=== PATIENT | female | born 1935 | race Caucasian/White ===

== ENCOUNTER 2018-05-14 20:26 | Outpatient (REF) | payer MEDICARE, SELFPAY ==
[2018-05-14 21:07] LABS: Anion Gap 9.7 mmol/L (3-11); BUN 16 mg/dL (7-18); CO2 29.3 mmol/L (21.0-32.0); CREATININE 1.05 mg/dL (0.55-1.02); Calcium 9.7 mg/dL (8.5-10.1); Chloride 104 mmol/L (98-107); Estimated GFR 50.43 (mL/min/1.73m2); Glucose 99 mg/dL (70-100); Potassium 4.6 mmol/L (3.5-5.1); Sodium 143 mmol/L (136-145)
== END 2018-05-14 20:46 ==
LOC: NCHCN 20:26
PROVIDERS: PCP Specialist/Technologist Athletic Trainer; Visit Provider Specialist/Technologist Athletic Trainer
DX: I10 Essential (primary) hypertension (principal)
CPT/HCPCS: 80048

== ENCOUNTER 2019-01-27 10:34 | Outpatient (REF) | payer MEDICARE, SELFPAY ==
[2019-01-27 12:18] LABS: Anion Gap 11.3 mmol/L (3-11); BUN 18 mg/dL (7-18); CO2 25.7 mmol/L (21.0-32.0); Calcium 9.7 mg/dL (8.5-10.1); Chloride 106 mmol/L (98-107); Estimated GFR 47.67 (mL/min/1.73m2); Glucose 110 mg/dL (70-100); Potassium 4.6 mmol/L (3.5-5.1); Sodium 143 mmol/L (136-145)
== END 2019-01-27 10:54 ==
LOC: NCHCN 10:34
PROVIDERS: PCP Nurse Practitioner Family; Visit Provider Nurse Practitioner Family
DX: I10 Essential (primary) hypertension (principal); E78.5 Hyperlipidemia, unspecified; R94.4 Abnormal results of kidney function studies; H35.30 Unspecified macular degeneration
CPT/HCPCS: 80048

== ENCOUNTER 2020-01-12 14:45 | Outpatient (REF) | payer MEDICARE, SELFPAY ==
[2020-01-12 19:54] LABS: BUN 21 mg/dL (7-18); CREATININE 1.29 mg/dL (0.55-1.02); Calcium 9.4 mg/dL (8.5-10.1); Chloride 105 mmol/L (98-107); Estimated GFR 39.57 (mL/min/1.73m2); Glucose 135 mg/dL (74-106); Potassium 4.1 mmol/L (3.5-5.1); Sodium 141 mmol/L (136-145)
== END 2020-01-12 15:05 ==
LOC: NCHCN 14:45
PROVIDERS: Visit Provider Nurse Practitioner Family
DX: I10 Essential (primary) hypertension (principal)
CPT/HCPCS: 80048

== ENCOUNTER 2020-03-24 09:27 | Outpatient (REF) | payer MEDICARE, SELFPAY ==
[2020-03-24 19:18] LABS: Anion Gap 8.7 mmol/L (3-11); BUN 15 mg/dL (7-18); CO2 29.3 mmol/L (21.0-32.0); CREATININE 1.06 mg/dL (0.55-1.02); Calcium 9.6 mg/dL (8.5-10.1); Chloride 104 mmol/L (98-107); Estimated GFR 49.63 (mL/min/1.73m2); Glucose 89 mg/dL (74-106); Potassium 4.2 mmol/L (3.5-5.1); Sodium 142 mmol/L (136-145)
== END 2020-03-24 09:47 ==
LOC: NCHCN 09:27
PROVIDERS: PCP Nurse Practitioner Family; Visit Provider Nurse Practitioner Family
DX: N18.3 Chronic kidney disease, stage 3 (moderate) (principal)
CPT/HCPCS: 80048

== ENCOUNTER 2021-02-13 16:06 | Outpatient (REF) | payer MEDICARE, SELFPAY ==
[2021-02-13 20:42] LABS: Anion Gap 6.1 mmol/L (3-11); BUN 18 mg/dL (7-18); CO2 29.9 mmol/L (21.0-32.0); CREATININE 1.1 mg/dL (0.55-1.02); Calcium 9.8 mg/dL (8.5-10.1); Chloride 105 mmol/L (98-107); Estimated GFR 47.43 (mL/min/1.73m2); Glucose 98 mg/dL (74-106); Potassium 4.5 mmol/L (3.5-5.1); Sodium 141 mmol/L (136-145)
== END 2021-02-13 16:07 | disposition home or self-care (01) ==
LOC: NCHCN 16:06
PROVIDERS: PCP Nurse Practitioner Family; Visit Provider Nurse Practitioner Family
DX: N18.30 Chronic kidney disease, stage 3 unspecified (principal)
CPT/HCPCS: 80048

== ENCOUNTER 2021-02-14 02:10 | Outpatient (CLI) | payer MEDICARE, SELFPAY ==
--- NOTE | 2021-02-14 11:19 | DI.RAD_ITS ---
Exam(s) XR HIP RT COMPLETE AP PELVIS EXAM: XR HIP RT COMPLETE AP PELVIS CLINICAL HISTORY: RT GROIN AND HIP PAIN, M25.551, H/O FALL,DECREASED RANGE OF MOTION RT HIP,. TECHNIQUE: 2D digital imaging was performed. COMPARISON: No exams were available for comparison FINDINGS: No evidence of pelvic fracture nor diastasis of the symphysis pubis. Sacroiliac joints appear unrema rkable. There no hip fractures. There are mild degenerative changes in the right hip noted. Left h ip unremarkable. No osseous lesions evident. IMPRESSION: There are mild degenerative changes in the right hip. No other significant radiograph findings in th e pelvis and hips. DATA REPOSITORY: RADIATION DOSE DELIVERED:
== END 2021-02-14 02:30 ==
PROVIDERS: PCP Nurse Practitioner Family; Visit Provider Nurse Practitioner Family
DX: M16.11 Unilateral primary osteoarthritis, right hip (principal); R10.31 Right lower quadrant pain; N18.30 Chronic kidney disease, stage 3 unspecified; W19.XXXA Unspecified fall, initial encounter
CPT/HCPCS: 73502

== ENCOUNTER 2021-04-04 11:45 | Outpatient (REF) | payer MEDICARE, SELFPAY ==
[2021-04-04 16:40] LABS: Anion Gap 11.7 mmol/L (3-11); BUN 18 mg/dL (7-18); CO2 24.3 mmol/L (21.0-32.0); CREATININE 1.1 mg/dL (0.55-1.02); Calcium 9.8 mg/dL (8.5-10.1); Chloride 106 mmol/L (98-107); Estimated GFR 47.43 (mL/min/1.73m2); Glucose 101 mg/dL (74-106); Potassium 4.4 mmol/L (3.5-5.1); Sodium 142 mmol/L (136-145)
== END 2021-04-04 11:46 | disposition home or self-care (01) ==
LOC: NCHCN 11:45
PROVIDERS: PCP Nurse Practitioner Family; Referring Provider Nurse Practitioner Family; Visit Provider Nurse Practitioner Family
DX: I10 Essential (primary) hypertension (principal)
CPT/HCPCS: 80048

== ENCOUNTER 2021-04-11 13:22 | Outpatient (REF) | payer MEDICARE, SELFPAY ==
[2021-04-11 21:27] LABS: Anion Gap 10.2 mmol/L (3-11); BUN 22 mg/dL (7-18); CO2 24.8 mmol/L (21.0-32.0); CREATININE 1.1 mg/dL (0.55-1.02); Calcium 9.7 mg/dL (8.5-10.1); Chloride 106 mmol/L (98-107); Estimated GFR 47.43 (mL/min/1.73m2); Glucose 100 mg/dL (74-106); Potassium 4.7 mmol/L (3.5-5.1); Sodium 141 mmol/L (136-145)
== END 2021-04-11 13:23 | disposition home or self-care (01) ==
LOC: NCHCN 13:22
PROVIDERS: PCP Nurse Practitioner Family; Visit Provider Nurse Practitioner Family
DX: I10 Essential (primary) hypertension (principal)
CPT/HCPCS: 80048

== ENCOUNTER → 2021-09-28 00:55 | Outpatient (CLI) | payer MEDICARE, SELFPAY ==
--- NOTE | 2021-09-28 | DI.RAD_ITS ---
Exam(s) XR HIP PELVIS ADULT BL EXAM: XR HIP PELVIS ADULT BL CLINICAL HISTORY: LOW BACK AND HIP PAIN. TECHNIQUE: 2D digital imaging was performed of the pelvis and bilateral hips. Three images were obt ained. AP pelvis and lateral views of both hips were obtained. COMPARISON: CR XR HIP RT COMPLETE AP PELVIS from 02/14/2021 FINDINGS: BONES: No acute fracture is present. No bony destructive lesion is seen. JOINTS: No dislocation present. In the right hip, poye-wu-alkzdzjm joint space narrowing is present. In the left hip jdip-nm-qznnedhu joint space narrowing is present. SOFT TISSUE: Normal. IMPRESSION: Mild degenerative changes of the hips bilaterally. DATA REPOSITORY: RADIATION DOSE DELIVERED:
--- NOTE | 2021-09-28 | DI.RAD_ITS ---
Exam(s) XR LUMBAR SPINE COMPLETE EXAM: XR LUMBAR SPINE COMPLETE CLINICAL HISTORY: LOW BACK PAIN,M54.50. TECHNIQUE: 2D digital imaging was performed of the lumbar spine. Five images were obtained. AP, la teral, right oblique, left oblique and L5-S1 spot views were obtained. COMPARISON: No exams were available for comparison FINDINGS: BONES: No fracture or destructive lesion. There are endplate osteophytes at multiple levels of the [place] mbar spine, particularly at L5-S1. Facet hypertrophic changes are seen throughout the lumbar spine pa rticularly at L4-5 and L5-S1. DISKS: There is disc space narrowing at L5-S1. ALIGNMENT: Lumbar spinal alignment is within normal limits. No spondylolysis or spondylolisthesis. SOFT TISSUE: Atherosclerosis is present. IMPRESSION: Moderate degenerative changes in the lumbar spine. DATA REPOSITORY: RADIATION DOSE DELIVERED:
--- NOTE | 2021-09-28 | DI.RAD_ITS ---
Exam(s) XR SACROILIAC JOINTS EXAM: XR SACROILIAC JOINTS CLINICAL HISTORY: LOW BACK AND HIP PAIN. TECHNIQUE: 2D digital imaging was performed. Three images were obtained. COMPARISON: No exams were available for comparison FINDINGS: Bones: No fracture is present. No bony destructive lesion is seen. Alignment is satisfactory. SI Joint:No fusion, erosions or sclerosis is seen. Soft Tissue: Normal. IMPRESSION: Unremarkable SI joints. DATA REPOSITORY: RADIATION DOSE DELIVERED:
== END ==
PROVIDERS: PCP Nurse Practitioner Family; Visit Provider Nurse Practitioner Family
DX: M54.59 Other low back pain (principal); R10.2 Pelvic and perineal pain; M51.36 Other intervertebral disc degeneration, lumbar region; M16.0 Bilateral primary osteoarthritis of hip
CPT/HCPCS: 73521; 72110; 72202

== ENCOUNTER 2021-10-09 20:34 | Outpatient (REF) | payer MEDICARE, SELFPAY ==
[2021-10-09 19:36] LABS: ALT 31 U/L (14-59); AST 24 U/L (15-37); Albumin 4.2 g/dL (3.4-5.0); Alkaline Phosphatase 101 U/L (46-116); Anion Gap 9.2 mmol/L (3-11); BUN 23 mg/dL (7-18); Bilirubin, Total 0.7 mg/dL (0.2-1.0); CO2 26.8 mmol/L (21.0-32.0); Calcium 10.1 mg/dL (8.5-10.1); Chloride 107 mmol/L (98-107); Estimated GFR 52.82 (mL/min/1.73m2); Glucose 93 mg/dL (74-106); Potassium 4.9 mmol/L (3.5-5.1); Sodium 143 mmol/L (136-145); Total Protein 7.3 g/dL (6.4-8.2)
== END 2021-10-09 20:35 | disposition home or self-care (01) ==
LOC: NCHCN 20:34
PROVIDERS: PCP Nurse Practitioner Family; Visit Provider Nurse Practitioner Family
DX: I10 Essential (primary) hypertension (principal); E78.5 Hyperlipidemia, unspecified; M54.59 Other low back pain
CPT/HCPCS: 80053

== ENCOUNTER → 2021-12-03 13:56 | Outpatient (BNVA) | payer MEDICARE, SELFPAY | PROVIDERS: PCP Nurse Practitioner Family; Referring Provider Nurse Practitioner Family; Visit Provider Student in an Organized Health Care Education/Training Program | DX: M16.11 Unilateral primary osteoarthritis, right hip (principal); M16.12 Unilateral primary osteoarthritis, left hip | CPT/HCPCS: 99203 ==

== ENCOUNTER → 2021-12-13 02:02 | Outpatient (CLI) | payer MEDICARE, SELFPAY ==
--- NOTE | 2021-12-13 07:45 | DI.RAD_ITS ---
Exam(s) RF JOINT INJECTION FLUORO GUID EXAM: RF JOINT INJECTION FLUORO GUID CLINICAL HISTORY: R HIP INJ UNDER FLUORO,PAIN,DJD,M16.11 TECHNIQUE: 2D and realtime digital imaging was performed. CONTRAST MATERIAL: Water soluble contrast was administered. COMPARISON: No exams were available for comparison FINDINGS: Fluoroscopy was provided for Dr. Wood during the performance of a right hip injection. Please r efer to the procedure report for complete details. RADIATION DOSE DELIVERED: shadia Craft=0.57 mGy
--- NOTE | 2021-12-13 07:45 | DI.RAD_ITS ---
Exam(s) RF JOINT INJECTION FLUORO GUID EXAM: RF JOINT INJECTION FLUORO GUID CLINICAL HISTORY: L HIP INJ UNDER FLUORO,PAIN,DJD LT HIP, M16.12 TECHNIQUE: 2D and realtime digital imaging was performed. CONTRAST MATERIAL: Water soluble contrast was administered. COMPARISON: No exams were available for comparison FINDINGS: Fluoroscopy was provided for Dr. Wood during the performance of a left hip injection. Please re arelis to the procedure report for complete details. RADIATION DOSE DELIVERED: shadia Craft=0.53 mGy
[2021-12-13] MEDS: Omnipaque 300 MG/ML 10 ML BTL IJ ×2 (15:37→15:42)
[2021-12-13] MEDS: Bupivacaine 0.5% Pres-Free 30 ML VIAL 5 ML IJ (15:39)
[2021-12-13] MEDS: methylPREDNISolone ACETATE 80 MG/ML VIAL IM (15:40)
--- NOTE | 2021-12-13 20:00 | W.PROCNOTE ---
Date of service: 12/13/21 Time of Service: 15:05 Procedure Note Date of procedure: 12/13/21 Procedure: Bilateral Hip Injection with Fluoroscopic Guidance Surgeon/Proceduralist/Physician: Jonah Wood Procedure Diagnosis: Bilateral Hip Osteoarthritis Procedure Indications: Lorraine has had persistent pain of the BILATERAL hip and groin. Noninvasive measures have been tried. To serve as both diagnostic and therapeutic, an injection under fluoroscopy was recommended. I had discussed the risks of the procedure and the patient elected to proceed. Procedure Description: Lorraine was greeted in the flouroscopy room. The consent was reviewed with the patient and signed. The patient was then placed in the supine position on the fluoroscopy table. The RIGHT hip was then prepped with Chloraprep. The anterolateral injection starting point was identiifed by bony landmarks and fluoroscopy. The skin and soft tissue in the tract of the injection was anesthetized with 1% Lidocaine. A spinal needle was then inserted deep into the hip joint at the level of the lateral femoral neck under fluoroscopic guidance. A small amount of Omnipaque solution was injected to confirm intraarticular placement. Once confirmed, the hip was injected with 5cc of 0.5% Bupivicaine and 80mg of Depo-Medrol. A bandaid was placed on the injection site. The LEFT hip was then prepped with Chloraprep. The anterolateral injection starting point was identiifed by bony landmarks and fluoroscopy. The skin and soft tissue in the tract of the injection was anesthetized with 1% Lidocaine. A spinal needle was then inserted deep into the hip joint at the level of the lateral femoral neck under fluoroscopic guidance. A small amount of Omnipaque solution was injected to confirm intraarticular placement. Once confirmed, the hip was injected with 5cc of 0.5% Bupivicaine and 80mg of Depo-Medrol. A bandaid was placed on the injection site. The patient tolerated the procedure well.
== END ==
PROVIDERS: PCP Nurse Practitioner Family; Visit Provider Student in an Organized Health Care Education/Training Program
DX: M16.12 Unilateral primary osteoarthritis, left hip (principal); M16.11 Unilateral primary osteoarthritis, right hip
CPT/HCPCS: 20610; 77002; J1040

== ENCOUNTER 2022-01-29 10:45 | Outpatient (REF) | payer MEDICARE, SELFPAY ==
[2022-01-29 15:54] LABS: Anion Gap 8.4 mmol/L (3-11); BUN 22 mg/dL (7-18); CO2 25.6 mmol/L (21.0-32.0); CREATININE 0.9 mg/dL (0.55-1.02); Calcium 9.5 mg/dL (8.5-10.1); Chloride 105 mmol/L (98-107); Estimated GFR 59.65 (mL/min/1.73m2); Glucose 89 mg/dL (74-106); Potassium 4.1 mmol/L (3.5-5.1); Sodium 139 mmol/L (136-145)
== END 2022-01-29 10:46 | disposition home or self-care (01) ==
LOC: NCHCN 10:45
PROVIDERS: PCP Nurse Practitioner Family; Visit Provider Nurse Practitioner Family
DX: I10 Essential (primary) hypertension (principal); N18.30 Chronic kidney disease, stage 3 unspecified; M54.59 Other low back pain; M25.551 Pain in right hip
CPT/HCPCS: 80048

== ENCOUNTER → 2022-02-18 10:45 | Outpatient (BNVA) | payer MEDICARE, SELFPAY | PROVIDERS: PCP Nurse Practitioner Family; Referring Provider Nurse Practitioner Family; Visit Provider Student in an Organized Health Care Education/Training Program | DX: M16.11 Unilateral primary osteoarthritis, right hip (principal); M16.12 Unilateral primary osteoarthritis, left hip | CPT/HCPCS: 99213 ==

== ENCOUNTER 2022-03-18 03:32 | Outpatient (CLI) | payer OTHER, SELFPAY ==
[2022-03-18 10:46] LABS: HGB 13.9 g/dL (11.2-15.7); MCH 28.7 pg (27.0-33.0); MCHC 31.6 % (32.0-36.0); MCV 91 fL (80-95); MPV 9.9 fL (8.0-11.0); Platelet Count 263 10^3/uL (130-400); RBC 4.85 10^6/uL (3.93-5.22); RDW 14.2 % (11.7-14.6); RDW-SD 47.7 fL; WBC 8.12 10^3/uL (4.4-10.8)
== END 2022-03-18 03:33 | disposition home or self-care (01) ==
PROVIDERS: PCP Nurse Practitioner Family; Visit Provider Student in an Organized Health Care Education/Training Program
DX: M16.0 Bilateral primary osteoarthritis of hip (principal); Z01.818 Encounter for other preprocedural examination
CPT/HCPCS: 36415; 85027; 86850; 86900; 86901

== ENCOUNTER 2022-03-18 03:54 | Outpatient (CLI) | payer OTHER, SELFPAY ==
[2022-03-18 12:49] LABS: Source Nasal/Nares
[2022-03-18 15:25] LABS: COVID-19 PCR Negative (Negative)
== END 2022-03-18 03:55 | disposition home or self-care (01) ==
LOC: LBO 03:54
PROVIDERS: PCP Nurse Practitioner Family; Visit Provider Student in an Organized Health Care Education/Training Program
DX: Z20.822 Contact with and (suspected) exposure to COVID-19 (principal)
CPT/HCPCS: 87635

== ENCOUNTER 2022-03-19 05:41 | Observation (INO) | payer OTHER, SELFPAY ==
[2022-03-19] VITALS (16 sets, daily range): BP systolic 85–170; BP diastolic 36–89; PULSE 62–87; RESP 15–20; TEMP 35.5–36.7; O2SAT 92–98; BMI 33.2
--- NOTE | 2022-03-19 06:09 | W.ANESPRE ---
General Info Date of Service Date Performed: 03/19/22 Height: 5 ft Weight: 77.111 kg Body Mass Index (BMI): 33.2 Surgical Procedure: Operation Date: 03/19/22 08:00 Proposed Procedure Side Surgeon p Hip Total Hip Anterior Bilateral Bilateral Jonah Wood MD Meds Allergies and Home Medications Allergies Allergy/AdvReac Type Severity Reaction Status Date / Time simvastatin Allergy Unknown Verified 03/19/22 06:03 adhesive tape AdvReac Severe Verified 03/19/22 06:03 environmental Allergy Skin Rash Uncoded 03/18/22 12:10 Home Medication Medication Instructions Recorded lisinopril 30 mg tablet 60 mg PO DAILY 10/16/21 vitamins A,C,B-fuqe-ttyybm 14,320 1 cap PO BID 10/16/21 unit-226 mg-200 unit capsule (ICaps AREDS) acetaminophen 650 mg 650 mg PO Q12H 12/03/21 tablet,extended release (Tylenol Arthritis Pain) meloxicam 7.5 mg tablet 2 tab PO DAILY 01/31/22 amlodipine 2.5 mg tablet 1 tab PO DAILY 03/18/22 Current Visit Medications: Current Medications Generic Name Dose Route Start Last Admin Trade Name Freq PRN Reason Stop Dose Admin Acetaminophen 1,000 mg 03/19/22 06:00 Acetaminophen 500 Mg Tab PO 03/19/22 16:00 PREOP KRISTY Celecoxib 400 mg 03/19/22 06:00 Celecoxib 200 Mg Cap PO 03/19/22 16:00 PREOP KRISTY Tranexamic Acid 1,000 mg/ 60 mls @ 360 mls/hr 03/19/22 06:00 Sodium Chloride IV 03/19/22 16:00 PREOP KRISTY Tranexamic Acid 1,000 mg/ 60 mls @ 360 mls/hr 03/19/22 06:00 Sodium Chloride IV 03/19/22 16:00 DIRECTED KRISTY Ringer's Solution 1,000 mls @ 80 mls/hr 03/19/22 06:00 IV 03/19/22 23:59 INFUSION KRISTY Cefazolin Sodium/Dextrose 2 gm in 50 mls @ 100 mls/hr 03/19/22 06:00 Ancef Duplex IVPB 03/19/22 16:00 PREOP KRISTY IV Miscellaneous Supplies 1 each 03/19/22 06:00 Iv Access IV 03/19/22 23:59 DIRECTED KRISTY Sodium Chloride 0 ml 03/19/22 06:00 Normal Saline Flush 10 Ml Syr IV 03/19/22 23:59 PRN PRN Sodium Chloride 0 ml 03/19/22 06:00 Normal Saline 10 Ml Vial IJ 03/19/22 23:59 DIRECTED PRN Sterile Water 0 ml 03/19/22 06:00 Water,Injection,Sterile 10 Ml Vial IJ 03/19/22 23:59 DIRECTED PRN PFSH Active Problems Active Problems: Problem Status Onset Code Hypertension I10 Low back pain M54.50 CKD (chronic kidney disease) stage 3, GFR 30-59 ml/min N18.30 Hyperlipidemia E78.5 Macular degeneration of right eye H35.30 Cataracts, bilateral H26.9 Degenerative joint disease of left hip M16.12 Degenerative joint disease of right hip M16.11 Medical History Medical History Eczema Fecal occult blood test positive Former smoker Right hip pain Seasonal allergies Surgical History Surgical History Hx of cataract extraction Tobacco Smoking/Tobacco Use Status: Former Tobacco Use Alcohol Alcohol Intake: current Alcohol intake frequency: a few times a week Alcohol type: wine Substance Use Substance use: Never Substance use type: does not use Vital Signs and Lab Results Vital Signs Most Recent Vital Signs in EMR: Temp Pulse Resp BP Pulse Ox 36.6 C 75 16 163/89 H 98 03/19/22 06:05 03/19/22 06:05 03/19/22 06:05 03/19/22 06:05 03/19/22 06:05 Lab Results Blood Type / Crossmatch: Patient ABO/Rh A Positive 03/18/22 Antibody Screen NEGATIVE 03/18/22 Complete Blood Count: White Blood Count 8.12 10^3/uL (4.4-10.8) 03/18/22 10:35 Red Blood Count 4.85 10^6/uL (3.93-5.22) 03/18/22 10:35 Hemoglobin 13.9 g/dL (11.2-15.7) 03/18/22 10:35 Hematocrit 44.0 % (36.0-46.0) 03/18/22 10:35 Platelet Count 263 10^3/uL (130-400) 03/18/22 10:35 Complete Metabolic Panel: No Data to Display Liver Function Panel: No Data to Display Coagulation Panel: No Data to Display Cardiac Panel: No Data to Display Arterial Blood Gas: No Data to Display Venous Blood Gas: No Data to Display Pancreas Panel: No Data to Display Thyroid Panel: No Data to Display Infectious Disease: Coronavirus (COVID-19)(PCR) Negative (Negative) 03/18/22 10:55 Coronavirus 2019 Source Nasal/Nares 03/18/22 10:55 Blood Cultures: No Data to Display Toxicology Panel: No Data to Display Imaging and Studies Imaging and Studies Study information below may be from another EMR and interpreted by another provider. Please see original notes in EMR for more complete details. EKG Summary: 03/19/22: sinus Anesthesia Assessment and Plan Anesthesia History Personal History: No History of Anesthesia Complications Family History: No Family History of Anesthesia Complications Exercise Tolerance Exercise Tolerance: Metabolic Equivalents>4 Cardiac & Pulmonary Exam Cardiac Exam: Normal S1/S2 Heart Sounds Pulmonary Exam: Clear Bilateral Breath Sounds Implantable Cardiac Device Does patient have a Pacemaker or an ICD?: No Airway Exam Known Difficult Airway: No Mallampati Class: 1 Mouth Opening: Normal (> 3cm) Thyromental Distance: Greater than 3 cm Neck Range of Motion: Full ROM Neck Circumference: Normal Teeth Condition: Removable Dentures/Plates Upper, Removable Dentures/Plates Lower and Edentulous ASA Classification ASA Score: ASA 3 Emergency Case?: No NPO Status NPO Status: NPO Clears >2 hours, Solids >8 hours Anesthesia Plan Resuscitation Status: Full Code Anesthesia Technique: Spinal Anesthesia Airway Planned: Natural Airway Monitors Used: Standard Monitors Preoperative Comments:: 86 yo female for bilateral RUPAL. Sig PMHx: CKDIII, HTN (lisinopril), former smoker, occ EtOH.
--- NOTE | 2022-03-19 06:15 | RT.EKG_ITS ---
APPROVED REPORT Exam: Resting ECG Reason for Exam: preop Patient Location: I HR:63 bpm ECG Measurements Heart Rate 63 AXIS HI 142 P 50 QRSd 96 QRS 3 QT 405 T 33 QTc 413 Conclusion Sinus rhythm...normal P axis, V-rate 60- 99 Normal Electrocardiogram
--- NOTE | 2022-03-19 06:17 | PDOC.DSDIS_ITS ---
Discharge Plan Disposition Patient Disposition: HOME Condition: Stable Discharge Details Reason For Visit: Bilateral RUPAL's Admit Date/Time: 03/19/22 05:41 Admit Provider: Jonah Wood Attending Provider: Jonah Wood Primary Care Provider: Sharmila Lee Home Meds and New Rx's Prescriptions: No Action acetaminophen [Tylenol Arthritis Pain] 650 mg tablet extended release 650 mg PO Q12H meloxicam 7.5 mg tablet 2 tab PO DAILY ICaps AREDS [id number],320226-200 icyw-jt-yvwv capsule 1 cap PO BID lisinopril 30 mg tablet 60 mg PO DAILY amlodipine 2.5 mg tablet 1 tab PO DAILY Label Comments: TAKE ONE TABLET BY MOUTH EVERY MORNING FOR HIGH BLOOD PRESSURE Discharge Instructions Additional Instructions: Total Hip Discharge Instructions Activity: The most important activity is to walk. You should try to take short walks a few times a day. You have no restrictions on movement or positioning, but do not try to force what you do. You will find some stiffness and weakness with hip flexion (lifting your knee). Do not try to strengthen this too early, continue to practice walking and stairs and this will come. - Outpatient physical therapy can be helpful to help return you to a normal gait and improve your flexibility and strength. This can start around 2 weeks. For some patients, it?s not necessary. Usually this is determined at the time of discharge or at the first post-operative visit. - You should wear the JEM hose on both legs for 2 weeks. Dressing: Keep the surgical dressing in place for at least one week. After the first week it may be removed and replace with light gauze and tape or nothing. It may get wet after 3 days but avoid soaking the dressing. If it gets wet, just lightly pat dry. It is important to always keep some gauze between skin folds, especially when you are sitting. Spend some time with the wound exposed when you are lying flat as the incision does wrinkle onto itself. Medications: - You should take Tylenol and an anti-inflammatory Celebrex as your primary pain control medications. If the Celebrex is too expensive or not covered, please call the office for another alternative (Advil/Ibuprofen or Naproxen/Aleve). - You have been prescribed a stronger pain medication Oxycodone for breakthrough pain, take as needed as prescribed. - You have also been prescribed a stomach acid reduction agent Pantoprozole to help reduce stomach acid and reflux. - You will be taking Aspirin 81mg twice a day for DVT prevention unless instructed otherwise. - If you have constipation you should take Colace or Miralax (both zhbx-rkj-fekemal). It takes most people 3-4 days to have a bowel movement. Follow-up: 2 weeks If you have any acute concerns or questions, please do not hesitate to contact the office at [phone]. You may contact Dr. Wood with any questions after hours through the hospital at [phone] or on his cell phone at [phone]. Referrals: Jonah Wood MD [ [facility] STAFF PHYSICIAN] - Activity:: Activity as Tolerated Equipment/Supplies:: Walker Diet:: As Tolerated DS: Diagnosis Discharge Diagnosis (1) Degenerative joint disease of left hip: Status: Acute (2) Degenerative joint disease of right hip: Status: Acute
[2022-03-19] MEDS: Acetaminophen 500 MG TAB 1000 MG PO ×3 (06:34→20:31)
[2022-03-19] MEDS: Celecoxib 200 MG CAP 400 MG PO (06:34)
[2022-03-19] MEDS: Lactated Ringers 1,000 ML 80 ML IV ×2 (07:01→13:37)
[2022-03-19] MEDS: ceFAZolin 2 GM/50 ML BAG IVPB (07:53)
--- NOTE | 2022-03-19 08:44 | DI.RAD_ITS ---
Exam(s) XR HIP RT IN OR EXAM: XR HIP RT IN OR CLINICAL HISTORY: RTHA TECHNIQUE: 2D and realtime digital imaging was performed. COMPARISON: No exams were available for comparison FINDINGS: C-arm fluoroscopy was utilized by Dr. Wood during placement of right hip prosthesis. Hard copies show femoral and acetabular components in good position. IMPRESSION: RADIATION DOSE DELIVERED: shadia Craft=2.45 mGy
--- NOTE | 2022-03-19 09:48 | DI.RAD_ITS ---
Exam(s) XR HIP LT IN OR EXAM: XR HIP LT IN OR CLINICAL HISTORY: L RUPAL TECHNIQUE: 2D and realtime digital imaging was performed. COMPARISON: No exams were available for comparison FINDINGS: C-arm fluoroscopy was utilized by Dr. Wood during placement of left hip prosthesis. Hard copy sh ows femoral and acetabular components in good position. IMPRESSION: RADIATION DOSE DELIVERED: shadia Craft=3.14 mGy
--- NOTE | 2022-03-19 10:27 | W.ANESPOSTOP ---
Postoperative Evaluation Date, Time and Location Date Performed: 03/19/22 Time Performed: 10:27 Patient Location: PACU Vital Signs Most Recent Imported Vital Signs: Most Recent Vital Signs Temp Pulse Resp BP Pulse Ox 36.6 C 75 16 163/89 H 98 03/19/22 06:05 03/19/22 06:05 03/19/22 06:05 03/19/22 06:05 03/19/22 06:05 Pain Score Most Recent Pain Score: Most Recent Pain Score Pain Level 9 03/19/22 06:05 Assessment Mental Status: Awake (Alert & Oriented to Patient Baseline) Airway and Respiratory Function: Patent airway with normal (patient baseline) respiratory exam Cardiovascular Function: Hemodynamically Stable Hydration Status: Adequately Hydrated Nausea & Vomiting: No Nausea or Vomiting Pain: Pain is tolerable per patient Peripheral Nerve Block: Patient did not receive a nerve block
--- NOTE | 2022-03-19 11:47 | ROE_ITS ---
Date of service: 03/19/22 Time of Service: 10:30 Operative Note Operative Note DATE OF PROCEDURE: 03/19/22 PRE-OP DIAGNOSIS: Bilateral Hip Osteoarthritis POST-OP DIAGNOSIS: same PROCEDURE: Bilateral Anterior Total Hip Arthroplasty with Intraoperative Navigation SURGEON: Jonah Wood [employer] OFFICER: Hannah Graham ANESTHESIA TYPE: Spinal Refer to Anesthesia Record ESTIMATED BLOOD LOSS: 200 PATHOLOGY: none sent COMPLICATIONS: None Patient was transported to: PACU Patient's condition: stable Implants: RIGHT: 1. Depuy [place] Acetabular Component, 48mm 2. Depuy Acetabular Liner, [id number] 3. Depuy Corail 125 Degree Standard Collared Femoral Stem, Size 9 4. Depuy Altrx Ceramic Femoral Head, Size 32+5mm LEFT: 1. Depuy [place] Acetabular Component, 48mm 2. Depuy Acetabular Liner, [id number] 3. Depuy Corail Standard Collared Femoral Stem, Size 9 4. Depuy Altrx Ceramic Femoral Head, Size 32+1mm Indications: I have seen Lorraine in clinic for symptoms of hip arthritis, confirmed with radiographic findings. She has exhausted nonoperative methods and was having significant limitations in daily function and desired better function and less pain. I discussed the technical details of a hip replacement. I explained the risks of the procedure to include, but not limited to, bleeding, infection, pain, stiffness, fracture, damage to nerves and vessels, damage to muscles and tendons, loosening, instability, leg length inequality, need for repeat procedure, blood clot and cardiopulmonary demise. Despite these risks, Lorraine elected to proceed. Findings: There was significant signs of arthritis throughout both hips with complete loss of cartilage of the femoral head. Procedure Description: Lorraine was greeted in the preoperative holding area where the correct side was identified and marked. The consent was reviewed with the patient and signed. The history and physical was updated. All questions were answered. She was taken back to the operating room. A spinal anesthestic was then administered. The patient was placed into the supine position on the HANA table. Both feet were wrapped with [place]brill cotton wrap along with Coban. RIGHT Side The feet were placed in specialized boots for the HANA table, well seated within the boot and secured. SCDs were applied. The patient was then slid down onto a peroneal post. A preoperative AP hip was obtained to serve as a reference for determining leg lengths. Prophylactic antibiotics in the form of Cefazolin were administered. 1g of Tranxemic Acid was given intravenously within 30 minutes of incision. The right leg was then prepped with Chloraprep and draped in a standard fashion. A second prep with Chloraprep was performed prior to placement of a shower-curtain type drape with Iodine impregnated skin protection. A timeout to confirm correct identity, side and site, procedure, allergies, anesthesia, and medical concerns was performed. An obliquely oriented incision was made starting lateral to the ASIS and running distal over the Tensor Fascia Sirisha (TFL) muscle belly toward the fibular head, approximately 10cm. The skin and soft tissue was dissected sharply, through Ana?s fascia, and to the fascia of the TFL. With the fascia and superior border of the IT band identified, the fascia was incised with a new knife just above any perforators from the IT band. The TFL muscle belly was bluntly dissected away from the fascia and moved laterally. The fat between TFL and rectus was identified to ensure the dissection was not within the TFL. Blunt dissection created space between abductors and the capsule and retractor was placed over the lateral femoral neck. The fibers of the rectus femoris tendon were identified and these were freed from the anterior capsule. A second cobra retractor was placed around the medial femoral neck. The TFL was further retracted laterally to show the deep fascia. Careful dissection through this layer identified three main crossing vessels of the lateral femoral circumflex. These were cauterized in multiple locations and then cut without any noticeable bleeding. The TFL was further released bluntly from the deep fascia to expose anterior hip capsule and fat The Octavio orthopaedic retractor was then placed beneath the TFL and against sartorius and medial soft tissues to protect and retract the soft tissues. A T-capsulotomy was then performed starting at the superior lateral acetabulum and moving distally to the intertrochanteric ridge. These capsular flaps were tagged with a No. 1 Ethibond and elevated from within. The capsular flaps were released to the shoulder of the lateral neck and to the lesser trochanter to give excellent visualization of the proximal femur. A neck osteotomy was performed using an oscillating saw based on preoperative templates. This cut started in the shoulder and of the lateral neck and exited medially. The saw was at all times directed medially to avoid injury to the greater trochanter. Gentle traction was applied to the leg and the osteotomy opened. The femoral head was removed with a corkscrew, making sure to protect the TFL on its exit. This was measured on the back table to determing the starting reamer size. Portions of the rectus obscuring visualization were minimally elevated off the superior acetabulum. An anterior retractor was placed over the anterior wall between capsule and labrum and attached to the Gripper retraction system. A posterior retractor was placed similarly. This provided excellent visualization. The contents of the cotyloid fossa were removed with electrocautery and the labrum was removed with a knife. There was a notable floor osteophyte. There was significant chondromalacia of the superior acetabulum. Acetabular reaming began with a 44mm reamer. This first reaming was directed anterior to posterior and medial to get down to the true floor. This was i nspected and reamed until the true floor was reached. The anterior retractor was then released and entry and exit was provided by traction on the capsular flaps. I then reamed sequentially up to a 48mm reamer where good fit was obtained. The larger reamers were oriented based on anatomical reference of the anterior and lateral michele to ensure proper abduction and anteversion. Positioning and size was confirmed with the fluoroscopy. A 48mm Depuy [place] acetabular component was selected. The acetabulum was reamed around the periphery with the selected acetabular size to prevent a rim fit. The deep tissues were irrigated. The acetabular component was then impacted in a position of about 40-45 degrees of abduction and 15-20 degrees of anteversion, using the patient?s anatomy as the ultimate landmark. Fluoroscopy was used to confirm this. There was excellent credit cashier of the acetabular component and the inserting handle was removed. The acetabular liner, Depuy [id number] polyethylene liner, was inserted and lined up with the tines of the acetabular component. There was no soft tissue interposition. The liner was then impacted into position and confirmed to be well-seated. A portion of the karen-articular cocktail was then injected around the acetabulum into the capsule and periosteum. This cocktail consisted of 50cc of 0.25% Bupivicaine and 20cc of Exparel, expanded to a total of 120cc. Traction was released from the femur. The leg was rotated to 120 degrees. Any remaining medial capsule was released until the lesser trochanter was easily palpable. A Perales retractor was placed medially. The lateral capsule was further released into the shoulder to allow access to the greater trochanter. A Perales retractor was placed over the greater trochanter which allowed the trochanter to flip in front of the capsule for excellent exposure. The leg was brought down into maximal extension and 20 degrees of adduction while ensuring there was no impingement on the acetabulum. Any remnant capsule within the trochanter was released. Piriformis and obturator externis were identified and protected. There was excellent access to the proximal femur. The lateral neck remnant was removed with a rongeur. A blunt canal probe was used to identify the canal and trajectory for later broaching. A box osteotome initiated the broach course. A small curved rasp and a curved curette were used to work laterally. Broaching then began with a size 8 Corail broach. This was inserted manually around the trochanter and into the canal before mallet blows. The broach was seated to a few millimeters below the cut level based on the neck cut and the preoperative template. Sequential broaching was continued until a tight fit was obtained with good rotational control of the femur. A trial standard 125 degree neck was inserted along with a +5 trial head. The leg was brought out of extension and adduction and then reduced with traction and internal rotation. The leg was stable anteriorly in a position of 30 degrees of extension and 90 degrees of external rotation. Fluoroscopy was used to ensure there was no fracture and the stem was seated well. Leg lengths were checked with an AP pelvis and pelvic reference points. Oxatis navigation system was used to confirm appropriate positioning and leg length and offset. The broach was advanced a few mm to reconstitute leg length. Once content with the desired offset and leg lengths, the leg was brought back into extension, external rotation and adduction. The periosteum and surrounding tissue was injected with remaining portion of the karen-articular cocktail. The proximal femur was irrigated as well as the deep tissues. The Depuy [place] standard 125 degree collared stem, size 9, was then manually inserted into the proximal femur making sure to control rotation. It was then malleted into position with light blows, giving breaks to allow bone expansion and decrease risk of fracture. The selected Depuy Altrx Ceramic Head, size 32+5mm, was then placed onto the clean and dry trunnion and secured with impaction onto the tapered fit. The leg was brought back out of extension and adduction and reduced with traction and internal rotation. Stability was confirmed with no shuck at 90 degrees of external rotation and 30 degrees of extension. No impingement through range of motion arc. Final x-ray images were obtained with fluoroscopy to confirm adequate positioning and no intraoperative fracture. The deep tissues were thoroughly irrigated with Irrisept chlorhexadine solution. The capsule was then reapproximated with the previously placed Ethibond sutures. The TFL fascia was finally closed with a No. 2 Stratafix, barbed suture. Deep tissues were then reapproximated with 0 Vicryl and a running 2-0 Vicryl. The skin was closed with a running 4-0 Monocryl in a subcuticular fashion. This was reinforced with skin glue. A Mepilex silver dressing was applied. LEFT Side Keeping the back table sterile, the drapes were removed, light handles changed, and fluoroscopy switched rooms sides. Once again, a AP hip was obtained to serve as a reference for determining leg lengths. The left leg was then prepped with Chloraprep and draped in a standard fashion. A second prep with Chloraprep was performed prior to placement of a shower-curtain type drape with Iodine impregnated skin protection. A timeout was once again performed to ensure that there were no issues to proceed. An obliquely oriented incision was made starting lateral to the ASIS and running distal over the Tensor Fascia Sirisha (TFL) muscle belly toward the fibular head, approximately 10cm. The skin and soft tissue was dissected sharply, through Ana?s fascia, and to the fascia of the TFL. With the fascia and superior border of the IT band identified, the fascia was incised with a new knife just above any perforators from the IT band. The TFL muscle belly was bluntly dissected away from the fascia and moved laterally. The fat between TFL and rectus was identified to ensure the dissection was not within the TFL. Blunt dissection created space between abductors and the capsule and retractor was placed over the lateral femoral neck. The fibers of the rectus femoris tendon were identified and these were freed from the anterior capsule. A second cobra retractor was placed around the medial femoral neck. The TFL was further retracted laterally to show the deep fascia. Careful dissection through this layer identified three main crossing vessels of the lateral femoral circumflex. These were cauterized in multiple locations and then cut without any noticeable bleeding. The TFL was further released bluntly from the deep fascia to expose anterior hip capsule and fat The Octavio orthopaedic retractor was then placed beneath the TFL and against sartorius and medial soft tissues to protect and retract the soft tissues. A T-capsulotomy was then performed starting at the superior lateral acetabulum and moving distally to the intertrochanteric ridge. These capsular flaps were tagged with a No. 1 Ethibond and elevated from within. The capsular flaps were released to the shoulder of the lateral neck and to the lesser trochanter to give excellent visualization of the proximal femur. A neck osteotomy was performed using an oscillating saw based on preoperative templates. This cut started in the shoulder and of the lateral neck and exited medially. The saw was at all times directed medially to avoid injury to the greater trochanter. Gentle traction was applied to the leg and the osteotomy opened. The femoral head was removed with a corkscrew, making sure to protect the TFL on its exit. This was measured on the back table to determing the starting reamer size. Portions of the rectus obscuring visualization were minimally elevated off the superior acetabulum. An anterior retractor was placed over the anterior wall between capsule and labrum and attached to the Gripper retraction system. A posterior retractor was placed similarly. This provided excellent visualization. The contents of the cotyloid fossa were removed with electrocautery and the labrum was removed with a knife. There was significant chondromalacia of the superior acetabulum. Acetabular reaming began with a 44mm reamer. This first reaming was directed anterior to posterior and medial to get down to the true floor. This was inspected and reamed until the true floor was reached. The anterior retractor was then released and entry and exit was provided by traction on the capsular flaps. I then reamed sequentially up to a 48mm reamer where good fit was obtained. The larger reamers were oriented based on anatomical reference of the anterior and lateral michele to ensure proper abduction and anteversion. Positioning and size was confirmed with the fluoroscopy. A 48mm Depuy [place] acetabular component was selected. The acetabulum was reamed around the periphery with the selected acetabular size to prevent a rim fit. The deep tissues were irrigated. The acetabular component was then impacted in a position of about 40-45 degrees of abduction and 15-20 degrees of anteversion, using the patient?s anatomy as the ultimate landmark. Fluoroscopy was used to confirm this. There was excellent credit cashier of the acetabular component and the inserting handle was removed. The acetabular liner, Depuy [id number] polyethylene liner, was inserted and lined up with the tines of the acetabular component. There was no soft tissue interposition. The liner was then impacted into position and confirmed to be well-seated. A portion of the karen-articular cocktail was then injected around the acetabulum into the capsule and periosteum. This cocktail consisted of 50cc of 0.25% Bupivicaine and 20cc of Exparel, expanded to a total of 120cc. Traction was released from the femur. The leg was rotated to 120 degrees. Any remaining medial capsule was released until the lesser trochanter was easily palpable. A Perales retractor was placed medially. The lateral capsule was further released into the shoulder to allow access to the greater trochanter. A Perales retractor was placed over the greater trochanter which allowed the trochanter to flip in front of the capsule for excellent exposure. The leg was brought down into maximal extension and 20 degrees of adduction while ensuring there was no impingement on the acetabulum. Any remnant capsule within the trochanter was released. Piriformis and obturator externis were identified and protected. There was excellent access to the proximal femur. The lateral neck remnant was removed with a rongeur. A blunt canal probe was used to identify the canal and trajectory for later broaching. A box osteotome initiated the broach course. A small curved rasp and a curved curette were used to work laterally. Broaching then began with a size 8 Corail broach. This was inserted manually around the trochanter and into the canal before mallet blows. The broach was seated to a few millimeters below the cut level based on the neck cut and the preoperative template. Sequential broaching was continued until a tight fit was obtained with good rotational control of the femur. A trial standard 125 degree neck was inserted along with a +5 trial head. The leg was brought out of extension and adduction and then reduced with traction and internal rotation. The leg was stable anteriorly in a position of 30 degrees of extension and 90 degrees of external rotation. Fluoroscopy was used to ensure there was no fracture and the stem was seated well. Leg lengths were checked with an AP pelvis and pelvic reference points. Switching to a +1 head would better correct offset and leg length. Once content with the desired offset and leg lengths, the leg was brought back into extension, external rotation and adduction. The periosteum and surrounding tissue was injected with remaining portion of the karen-articular cocktail. The proximal femur was irrigated as well as the deep tissues. The Depuy [place] standard 125 degree collared stem, size 9, was then manually inserted into the proximal femur making sure to control rotation. It was then malleted into position with light blows, giving breaks to allow bone expansion and decrease risk of fracture. The selected Depuy Altrx Ceramic Head, size 32+1mm, was then placed onto the clean and dry trunnion and secured with impaction onto the tapered fit. The leg was brought back out of extension and adduction and reduced with traction and internal rotation. Stability was confirmed with no shuck at 90 degrees of external rotation and 30 degrees of extension. No impingement through range of motion arc. Final x-ray images were obtained with fluoroscopy to confirm adequate positioning and no intraoperative fracture. The deep tissues were thoroughly irrigated with Irrisept chlorhexadine solution. The capsule was then reapproximated with the previously placed Ethibond sutures. The TFL fascia was finally closed with a No. 2 Stratafix, barbed suture. Deep tissues were then reapproximated with 0 Vicryl and a running 2-0 Vicryl. The skin was closed with a running 4-0 Monocryl in a subcuticular fashion. This was reinforced with skin glue. A Mepilex silver dressing was applied. At the end of the case, all counts were correct. Alberta was transferred to the hospital bed without difficulty and suffering no apparent complication. Alberta has a good prognosis. Physical therapy will start today and without restri ctions, weight-bearing as tolerated. Aspirin 81mg BID will be used for DVT prophylaxis.
[2022-03-19] MEDS: ceFAZolin 1 GM/50 ML BAG IVPB ×2 (13:29→22:57)
--- NOTE | 2022-03-19 16:49 | IN_ITS ---
Date of service: 03/19/22 Time of Service: 16:49 PT Notes Visit Reasons: Bilateral RUPAL's Physical Therapy Inpatient Initial Evaluation Date: 03/19/2022 Referring Doctor: JIMMIE Salguero PT Orders: PT CONSULT: S/P Ortho surgery Precautions: Fall. Standard. WBAT on BLE with AD. Patient Profile/Admitting Diagnosis: Lorraine is an 86-year-old female with degenerative joint diseases of bilateral hips and is status post anterior total hip arthroplasty on postoperative day 0. PMHX: All Active Problems? Degenerative joint disease of right hip (Acute) Degenerative joint disease of left hip (Acute) Cataracts, bilateral (Acute) Macular degeneration of right eye (Acute) Hyperlipidemia (Acute) CKD (chronic kidney disease) stage 3, GFR 30-59 ml/min (Acute) Low back pain (Acute) Hypertension (Chronic) Medical History? Eczema Fecal occult blood test positive Former smoker Right hip pain Seasonal allergies Social History/Home Situation: Lives with in a private home that has been made handicap-accessible recently by her . Nephew will be staying at patient's house for the next 2 weeks to help out with anything as needed. Equipment Owned/DME: FWW, walking sticks, SPC Subjective: Agreeable to PT consult. Reports 7-8/10 pain in bilateral hips and thighs with ambulation. Nurse Agnes was made aware and gave patient IV Dilaudid prior to a longer distance ambulation with PT this afternoon. Hopeful to be going home with and nephew as soon as she can. Objective: General Observation: Mepilex Ag over surgcal incision. TEDS to B legs. IV through L UE. Mental Status: Alert and oriented as to person, place, time, and purpose. Able to pay attention, focus, and respond appropriately. Pain: 7-8/10 in B hips and thighs with weight bearing Vital Signs: WNL as closely monitored by nursing ROM: Right Lower Extremity: Hip flexion WFL. Hip abduction WFL. Knee flexion WFL. Ankle dorsiflexion WFL. Ankle plantarflexion WFL. Left Lower Extremity: Hip flexion WFL. Hip abduction WFL. Knee flexion WFL. Ankle dorsiflexion WFL. Ankle plantarflexion WFL. Strength: Right Lower Extremity: Hip flexors 4-/5. Hip abductors 4-/5. Knee flexors 4/5. Knee extensors 4-/5. Ankle dorsiflexors 4/5. Ankle plantarflexors 4/5. Left Lower Extremity: Hip flexors 4-/5. Hip abductors 4-/5. Knee flexors 4/5. Knee extensors 4-/5. Ankle dorsiflexors 4/5. Ankle plantarflexors 4/5. Bed Mobility/Transfers: Sit to stand contact guard assist with FWW Stand to sit contact guard assist with FWW Bed to reclining chair contact guard assist with FWW Reclining chair to bed contact guard assist with FWW Gait: Instructed patient with level surface ambulation of 8 feet + 40 feet requiring contact guard assist and wheelchair follow by PT as well as IV pole management of Nurse Alarcon. Maye decreased. Step height decreased. Step length decreased. Reported 8/10 piain in B hips and thighs during first walk of 8 feet. Denies headache, chest pain, and lightheadedness throughout session. Balance: Static Sitting: Normal Dynamic Sitting: Good Static Standing: Fair Dynamic Standing: Fair Special Tests: Mobility Limitations Standardized Measure [facility] AM-PAC 6 clicks Basic Mobility Inpatient Short Form: Raw Score: 18 CMS Score: 47% deficit Informed Consent/Education: Patient was instructed in purpose of PT consult and plan of care. Agreeable to proceed with established PT POC to achieve personal goals. Assessment: Premedicate for pain. Good tolerance to pain despite 7-8/10 pain in B hips and thighs. Will have good support at home. Patient presents with clinical signs and symptoms consistent with current/admitting diagnoses that have resulted to mobility limitations, gait instability, generalized weakness, and overall ADL decline as demonstrated by the following impairment level findings: 1. Decreased strength to B hip major muscle groups 2. Impaired sstanding balance 3. Impaired activity tolerance 4. Pain in B hips and thighs Impairments are contributing to the following functional limitations: 1. Decline in bed mobility skills 2. Decline in transfer skills 3. Difficulty with ambulation without assistive device and physical assistance 4. Increased completion time for mobility ADL performance 5. Increased risk for falls 6. Difficulty with managing steps alone safely Patient is assessed as a 34142 moderate complexity based on the following: History: 86-year-old female with past medical history as indicated above Examination: Demonstrable impairment in strength, balance, and mobility level with underlying impairments and functional limitations as exhibited above as well as deficit score of 47% utilizing the [facility] Mobility Inpatient Short Form Presentation: Evolving Decision Makin moderate complexity Goals: Goals X1 week 1. Supine-Sit independent 2. Sit-Supine independent 3. Sit-Stand independent 4. Stand-Sit independent with FWW 5. Bed-Chair independent with FWW 6. Chair-Bed independent with FWW 7. Independent gait on level surface with use of FWW for at least 100 feet without report of pain nor dyspnea 8. Independent stair negotiation while holding onto B rails for at least 3 steps without report of pain nor dyspnea 9. Independent with home exercise program 10. Good static and dynamic standing balance/tolerance Plan of Care/Treatment Plan: 1-2x/day, 7 days/week x 1 week. Plan of care has been reviewed with the PLASTIC MACHINE OPERATOR providing the service under Physical Therapy direction. Initiate Physical Therapy intervention for pain management as needed, strengthening, bed mobility, transfers, gait, stairs, balance training, and use of assistive device. DISCHARGE RECOMMENDATIONS: [] Home with no services [] [] Home with services [] [X] Home with outpatient PT. Home when medically cleared by orthopedic surgeon. Will benefit from outpatient PT services in order to maximize functional outcomes and regain independence with all ADLs without an assistive device. [] SNF for continued rehabilitation [] [] [facility] [] [] SNF versus LTC based on ability to participate and progress [] TREATMENT CODE/TIME: 79225 x 20 minutes, 09462 x 22 minutes beginning at 16:49 PM. Thank you for the opportunity to participate in the care of this patient. Emmie Infante PT, DPT, CLT [facility] [place], [place]
[2022-03-19] MEDS: HYDROmorphone 2 MG/ML SYR 0.5 MG IVP (17:12)
[2022-03-19] MEDS: Normal Saline Flush 10 ML SYR IV (17:12)
[2022-03-19] MEDS: Aspirin E.C. 81 MG TABEC PO (20:31)
[2022-03-19] MEDS: Celecoxib 200 MG CAP PO (20:31)
[2022-03-20 03:10] VITALS: BP 130/75; PULSE 70; RESP 16; TEMP 36.7; O2SAT 96
[2022-03-20] MEDS: ceFAZolin 1 GM/50 ML BAG IVPB (06:00)
[2022-03-20] MEDS: Aspirin E.C. 81 MG TABEC PO (07:42)
[2022-03-20] MEDS: Acetaminophen 500 MG TAB 1000 MG PO (07:42)
[2022-03-20] MEDS: Celecoxib 200 MG CAP PO (07:42)
[2022-03-20] MEDS: Pantoprazole 40 MG TABCR PO (07:42)
[2022-03-20] MEDS: amLODIPine 2.5 MG TAB PO (07:42)
[2022-03-20] MEDS: Lisinopril 20 MG TAB 60 MG PO (07:42)
[2022-03-20 08:27] VITALS: BP 147/74; PULSE 78; RESP 19; TEMP 36.5; O2SAT 96
--- NOTE | 2022-03-20 10:04 | W.PM.DS.N ---
Date of service: 03/20/22 Time of Service: 09:48 DS: Diagnosis Discharge Diagnosis (1) Degenerative joint disease of left hip: Status: Acute (2) Degenerative joint disease of right hip: Status: Acute Discharge Plan Disposition Patient Disposition: HOME Condition: Stable Discharge Details Reason For Visit: Bilateral RUPAL's Admit Date/Time: 03/19/22 05:41 Admit Provider: Jonah Wood Attending Provider: Jonah Wood Primary Care Provider: Sharmila Lee Hospital Course Hospital Course: Patient was admitted to the medical/surgical floor following the procedure. The surgery was tolerated well without any notable medical, surgical, or anesthetic complications. Mobilization began postoperatively. She was voiding spontaneously. Vitals were stable. Physical therapy worked with the patient and was cleared for discharge home. No acute medical issues. Pain was controlled on oral regimen. Home Meds and New Rx's Prescriptions: New aspirin 81 mg tablet,delayed release (DR/EC) 81 mg PO BID Qty: 60 0RF celecoxib 200 mg capsule 200 mg PO BID PRN (Reason: pain) Qty: 60 1RF pantoprazole 40 mg tablet,delayed release (DR/EC) 40 mg PO DAILY Qty: 30 0RF tramadol 50 mg tablet 50 mg PO Q4H PRNQty: 10 0RF Continued meloxicam 7.5 mg tablet 2 tab PO DAILY ICaps AREDS [id number] capsule 1 cap PO BID lisinopril 30 mg tablet 60 mg PO DAILY amlodipine 2.5 mg tablet 1 tab PO DAILY Label Comments: TAKE ONE TABLET BY MOUTH EVERY MORNING FOR HIGH BLOOD PRESSURE Changed acetaminophen [Tylenol Arthritis Pain] 650 mg tablet extended release 650 mg PO Q8H PRN PRNQty: 0 0RF Discharge Instructions Additional Instructions: Total Hip Discharge Instructions Activity: The most important activity is to walk. You should try to take short walks a few times a day. You have no restrictions on movement or positioning, but do not try to force what you do. You will find some stiffness and weakness with hip flexion (lifting your knee). Do not try to strengthen this too early, continue to practice walking and stairs and this will come. - Outpatient physical therapy can be helpful to help return you to a normal gait and improve your flexibility and strength. This can start around 2 weeks. For some patients, it?s not necessary. Usually this is determined at the time of discharge or at the first post-operative visit. - You should wear the JEM hose on both legs for 2 weeks. Dressing: Keep the surgical dressing in place for at least one week. After the first week it may be removed and replace with light gauze and tape or nothing. It may get wet after 3 days but avoid soaking the dressing. If it gets wet, just lightly pat dry. It is important to always keep some gauze between skin folds, especially when you are sitting. Spend some time with the wound exposed when you are lying flat as the incision does wrinkle onto itself. Medications: - You should take Tylenol and an anti-inflammatory Celebrex as your primary pain control medications. If the Celebrex is too expensive or not covered, please call the office for another alternative (Advil/Ibuprofen or Naproxen/Aleve). - You have been prescribed a stronger pain medication Tramadol for breakthrough pain, take as needed as prescribed. - You have also been prescribed a stomach acid reduction agent Pantoprozole to help reduce stomach acid and reflux. - You will be taking Aspirin 81mg twice a day for DVT prevention unless instructed otherwise. - If you have constipation you should take Colace or Miralax (both [id number]). It takes most people 3-4 days to have a bowel movement. Follow-up: 2 weeks If you have any acute concerns or questions, please do not hesitate to contact the office at [phone]. You may contact Dr. Wood with any questions after hours through the hospital at [phone] or on his cell phone at [phone]. Stand Alone Forms: Nursing Discharge Form Referrals: Jonah Wood MD [ [facility] STAFF PHYSICIAN] - 04/04/22 11:00 am Activity:: Activity as Tolerated Equipment/Supplies:: Walker Diet:: As Tolerated Discharge Orders Discharge Orders: Discharge Order (Routine); Ordered 03/20/22 Ordered By: Jonah Wood DS: Summary Time Spent with Patient providing and/or coordinating discharge services: Less than 30 minutes Status at Discharge Functional status at discharge: uses cane/walker Overall status at discharge: patient is progressing back to baseline Mental Status: mental status grossly normal Speech and Movement: speech and movement normal Mood: congruent mood Affect: normal affect Exam Narrative Exam Narrative: Sitting comfortably in bed. NAD. AAOx3 Ecchymosis to both hips. Dressings c/d/i. No pain to hip IR/ER. SILT LFCN/Fem Psych Mental Status: mental status grossly normal Speech and Movement: speech and movement normal Mood: congruent mood Affect: normal affect DS: Data Vitals/I&O Vitals and I&O: Vital Signs Temperature 36.5 C 03/20/22 08:27 Temperature Source Tympanic 03/20/22 08:27 Pulse 78 03/20/22 08:27 Pulse Rhythm Regular 03/20/22 08:00 Respiratory Rate 19 03/20/22 08:27 Respiratory Effort Non-Labored 03/20/22 08:00 Respiratory Depth Normal 03/20/22 08:00 Respiratory Pattern Normal 03/20/22 08:00 Blood Pressure 147/74 H 03/20/22 08:27 Pulse Oximetry 96 03/20/22 08:27 Respiratory End-tidal CO2 37 03/19/22 11:11 Oxygen Delivery Method Room Air 03/20/22 08:27 Oxygen Flow Rate 0 03/20/22 08:27 Pain Level 0 03/20/22 03:10 Comment 03/20/22 08:27 Intake & Output 03/19/22 03/19/22 03/20/22 11:59 23:59 11:59 Intake Total 930 / 2450 1520 / 2450 1290 / 1290 Output Total 200 / 200 800 / 800 Balance 730 / 2250 1520 / 2250 490 / 490 Weight 77.111 kg 77.11 kg Intake: IV 870 / 2150 1280 / 2150 1050 / 1050 Oral 60 / 300 240 / 300 240 / 240 Output: Urine 800 / 800 Estimated Blood Loss 200 / 200 Other: Urine Color Pale Yellow Urine Appearance Clear Clear Emesis Description None Voiding Methods Toilet PFSH All Active Problems Hypertension (Chronic) Low back pain (Acute) CKD (chronic kidney disease) stage 3, GFR 30-59 ml/min (Acute) Hyperlipidemia (Acute) Macular degeneration of right eye (Acute) Cataracts, bilateral (Acute) Degenerative joint disease of left hip (Acute) Degenerative joint disease of right hip (Acute) Medical History Eczema Fecal occult blood test positive Former smoker Right hip pain Seasonal allergies Surgical History Hx of cataract extraction Social History Smoking/Tobacco Use Status: Former Tobacco Use Quit Date: 07/28/08 Smoking risk assessment performed?: Yes Alcohol Intake: current Alcohol Intake frequency: a few times a week Alcohol type: wine Drug use: Never Substance use type: does not use Do you feel safe at home: Yes Do you feel safe in your relationship?: Yes
--- NOTE | 2022-03-20 12:07 | PT.INTREAT ---
PT Notes Visit Reasons: Bilateral RUPAL's Inpatient Physical Therapy Treatment Note [facility] Date: 03/20/22 SUBJECTIVE: I am going home at some point today. Pt is agreeable to PT. OBJECTIVE: [] PAIN: states mild discomfort/ stiffness in hips. BED MOBILITY/TRANSFERS Supine-sit: S Sit-supine: S Sit-stand: S Stand-sit: S GAIT Assistive Device:FWW Weight bearing: AT Assist: SBA Distance: 225' THEREX: performed a global LE strength and stabilization routine. STS x8. HR x10, standing hip abd x10. Seated LAQ x10. Heel slides x 10. ASSESSMENT: tolerated session very well. No c/o SOB, or pain. No noted LOB or safety issues. Has all DME needed for home. PLAN: d/c to home with . TREATMENT CODE/TIME: 25 min. [id number], [id number]
--- NOTE | 2022-03-20 18:00 | PT.INDS ---
Date of service: 03/20/22 PT Notes Visit Reasons: Bilateral RUPAL's Physical Therapy Inpatient Initial Evaluation Date: 03/20/2022 Dates of Service: 03/19/2022 through 03/20/2022 This is a clinical summary of care provided for the duration of dates listed above. No charge was made in the completion of this documentation. Referring Doctor: JIMMIE Salguero PT Orders: PT CONSULT: S/P Ortho surgery Precautions: Fall. Standard.? WBAT on BLE with AD. Patient Profile/Admitting Diagnosis:? Lorraine is an 86-year-old female with degenerative joint diseases of bilateral hips and is status post anterior total hip arthroplasty on postoperative day 0. PMHX: All Active Problems? Degenerative joint disease of right hip (Acute) Degenerative joint disease of left hip (Acute) Cataracts, bilateral (Acute) Macular degeneration of right eye (Acute) Hyperlipidemia (Acute) CKD (chronic kidney disease) stage 3, GFR 30-59 ml/min (Acute) Low back pain (Acute) Hypertension (Chronic) Medical History? Eczema Fecal occult blood test positive Former smoker Right hip pain Seasonal allergies Social History/Home Situation: Lives with in a private home that has been made handicap-accessible recently by her .? Nephew will be staying at patient's house for the next 2 weeks to help out with anything as needed. Equipment Owned/DME: FWW, walking sticks, SPC Subjective: NT. See most recent ORTHOPAEDIC PHYSICIAN ASSISTANT notes. Objective: General Observation: NT. See most recent ORTHOPAEDIC PHYSICIAN ASSISTANT notes. Mental Status: NT. See most recent ORTHOPAEDIC PHYSICIAN ASSISTANT notes. Pain: NT. See most recent ORTHOPAEDIC PHYSICIAN ASSISTANT notes. Vital Signs: NT. See most recent ORTHOPAEDIC PHYSICIAN ASSISTANT notes. ROM: Right Lower Extremity: Hip flexion WFL. Hip abduction WFL. Knee flexion WFL. Ankle dorsiflexion WFL. Ankle plantarflexion WFL. Left Lower Extremity: Hip flexion WFL. Hip abduction WFL. Knee flexion WFL. Ankle dorsiflexion WFL. Ankle plantarflexion WFL. Strength: Right Lower Extremity: Hip flexors 4-/5. Hip abductors 4-/5. Knee flexors 4/5. Knee extensors 4-/5. Ankle dorsiflexors 4/5. Ankle plantarflexors 4/5. Left Lower Extremity: Hip flexors 4-/5. Hip abductors 4-/5. Knee flexors 4/5. Knee extensors 4-/5. Ankle dorsiflexors 4/5. Ankle plantarflexors 4/5. OBJECTIVE: []? PAIN: states mild discomfort/ stiffness in hips. ? BED MOBILITY/TRANSFERS? Supine-sit: S? Sit-supine: S? Sit-stand: S ? Stand-sit: S? GAIT? Assistive Device:FWW ? Weight bearing: AT Assist: SBA? Distance:? 225' ? Balance: Static Sitting: Normal Dynamic Sitting: Good Static Standing: Fair Dynamic Standing: Fair Assessment: Premedicate for pain.? Good tolerance to pain despite 7-8/10 pain in B hips and thighs.? Will have good support at home.? Patient presents with clinical signs and symptoms consistent with current/admitting diagnoses that have resulted to mobility limitations, gait instability, generalized weakness, and overall ADL decline as demonstrated by the following impairment level findings: 1.? Decreased strength to? B hip major muscle groups 2.? Impaired sstanding balance 3.? Impaired activity tolerance 4.? Pain in B hips and thighs Impairments are contributing to the following functional limitations: 1.? Decline in bed mobility skills 2.? Decline in transfer skills 3.? Difficulty with ambulation without assistive device and physical assistance 4.? Increased completion time for mobility ADL performance 5.? Increased risk for falls 6.? Difficulty with managing steps alone safely Goals: Goals X1 week 1. Supine-Sit independent NOT MET 2. Sit-Supine independent NOT MET 3. Sit-Stand independent NOT MET 4. Stand-Sit independent with FWW NOT MET 5. Bed-Chair independent with FWW NOT MET 6. Chair-Bed independent with FWW NOT MET 7. Independent gait on level surface with use of FWW for at least 100 feet without report of pain nor dyspnea NOT MET 8. Independent stair negotiation while holding onto B rails for at least 3 steps without report of pain nor dyspnea NOT MET 9. Independent with home exercise program NOT MET 10. Good static and dynamic standing balance/tolerance NOT MET DISCHARGE RECOMMENDATIONS: [] ? Home with no services [] [] ? Home with services [] [X] ? Home with outpatient PT.? Home when medically cleared by orthopedic surgeon.? Will benefit from outpatient PT services in order to maximize functional outcomes and regain independence with all ADLs without an assistive device. [] ? SNF for continued rehabilitation [] [] ? [facility] Care [] [] ? SNF versus LTC based on ability to participate and progress [] TREATMENT CODE/TIME: AK Thank you for the opportunity to participate in the care of this patient. Emmie Infante PT, DPT, CLT [facility] [place], [place]
== END 2022-03-20 10:52 | disposition home or self-care (01) | DRG 462 ==
LOC: PDS 08:25 → MS 13:51 → PDS 03-22 10:49
PROVIDERS: Admitting Provider Student in an Organized Health Care Education/Training Program; PCP Nurse Practitioner Family; Visit Provider Student in an Organized Health Care Education/Training Program
PROC: 0SR90JZ Replacement of Right Hip Joint with Synthetic Substitute, Open Approach (ICD-10-PCS; CPT 27130; principal; 2022-03-19 07:30)
DX: M16.0 Bilateral primary osteoarthritis of hip (principal); N18.30 Chronic kidney disease, stage 3 unspecified; I12.9 Hypertensive chronic kidney disease with stage 1 through stage 4 chronic kidney disease, or unspecified chronic kidney disease; M54.50 Low back pain, unspecified; E78.5 Hyperlipidemia, unspecified; Z87.891 Personal history of nicotine dependence; H35.30 Unspecified macular degeneration
CPT/HCPCS: 27130; 20985; C1776; 97110; 97162; 97530; 73501; 93005; 93010; J0690; J1100; J1170; J2370; J2405; J2704

== ENCOUNTER 2022-04-04 11:09 | Outpatient (CLI) | payer OTHER, SELFPAY ==
--- NOTE | 2022-04-04 10:45 | DI.RAD_ITS ---
Exam(s) XR HIP RT 1V XR HIP LT COMPLETE AP PELVIS EXAM: XR HIP LT COMPLETE AP PELVIS and XR hip RT 1 V CLINICAL HISTORY: 1ST POST OP BILAT RUPAL. TECHNIQUE: 2D digital imaging was performed of the left hip. Three views were obtained. AP pelvis and lateral bilateral hip views were obtained. COMPARISON: CR XR HIP PELVIS ADULT BL from 09/28/2021 XA XR HIP LT IN OR from 03/19/2022 XA XR HIP RT IN OR from 03/19/2022 CR XR HIP RT 1V from 04/04/2022 FINDINGS: BONES: No acute fracture is present. No bony destructive lesion is seen. JOINTS: There are stable bilateral total hip arthroplasties. No evidence of hardware failure is seen . SOFT TISSUE: Normal. IMPRESSION: Stable bilateral total hip arthroplasties. DATA REPOSITORY: RADIATION DOSE DELIVERED:
== END 2022-04-04 11:10 | disposition home or self-care (01) ==
LOC: DIORS 11:09
PROVIDERS: PCP Nurse Practitioner Family; Visit Provider Student in an Organized Health Care Education/Training Program
DX: Z96.643 Presence of artificial hip joint, bilateral (principal); Z47.1 Aftercare following joint replacement surgery
CPT/HCPCS: 73501; 73502

== ENCOUNTER → 2022-05-03 09:42 | Outpatient (BNVA) | payer OTHER, SELFPAY | PROVIDERS: PCP Nurse Practitioner Family; Referring Provider Nurse Practitioner Family; Visit Provider Student in an Organized Health Care Education/Training Program | DX: Z47.1 Aftercare following joint replacement surgery (principal); Z96.643 Presence of artificial hip joint, bilateral ==

== ENCOUNTER 2023-03-21 10:20 | Outpatient (CLI) | payer OTHER, SELFPAY ==
--- NOTE | 2023-03-21 11:23 | DI.RAD_ITS ---
Exam(s) XR HIP RT AP LAT ONLY XR HIP LT AP LAT ONLY EXAM: XR HIP LT AP LAT ONLY and XR hip RT Lat only CLINICAL HISTORY: ANNUAL F/U BILAT RUPAL. TECHNIQUE: 2D digital imaging was performed. Four images were obtained. AP pelvis and lateral views were obtained. COMPARISON: CR XR HIP RT 1V from 04/04/2022 CR XR HIP LT COMPLETE AP PELVIS from 04/04/2022 FINDINGS: BONES: There are stable post operative changes present. No fracture or dislocation. JOINTS: The orthopedic hardware is in good position. No evidence of hardware loosening. SOFT TISSUE: Normal. IMPRESSION: Stable postoperative changes of bilateral total hip replacements. DATA REPOSITORY: RADIATION DOSE DELIVERED:
== END 2023-03-21 10:21 | disposition home or self-care (01) ==
LOC: DIORS 10:20
PROVIDERS: PCP Nurse Practitioner Family; Referring Provider Nurse Practitioner Family; Visit Provider Student in an Organized Health Care Education/Training Program
DX: Z47.1 Aftercare following joint replacement surgery (principal); Z96.643 Presence of artificial hip joint, bilateral
CPT/HCPCS: 99213; 73502

== ENCOUNTER 2023-05-13 12:43 | Outpatient (REF) | payer OTHER, SELFPAY ==
[2023-05-13 16:14] LABS: Anion Gap 9.1 mmol/L (3-11); BUN 18 mg/dL (7-18); CO2 26.9 mmol/L (21.0-32.0); Calcium 9.8 mg/dL (8.5-10.1); Chloride 103 mmol/L (98-107); Estimated GFR 55.21 (mL/min/1.73m2); Glucose 97 mg/dL (74-106); Sodium 139 mmol/L (136-145)
== END 2023-05-13 12:44 | disposition home or self-care (01) ==
LOC: NCHCN 12:43
PROVIDERS: PCP Nurse Practitioner Family; Visit Provider Nurse Practitioner Family
DX: I10 Essential (primary) hypertension (principal); N18.30 Chronic kidney disease, stage 3 unspecified; Z00.00 Encounter for general adult medical examination without abnormal findings
CPT/HCPCS: 80048

== ENCOUNTER 2024-04-29 18:48 | Outpatient (REF) | payer OTHER, SELFPAY ==
[2024-04-29 15:27] LABS: ALT 29 U/L (14-59); AST 28 U/L (15-37); Albumin 3.7 g/dL (3.4-5.0); Alkaline Phosphatase 92 U/L (46-116); Anion Gap 7.3 mmol/L (3-11); BUN 17 mg/dL (7-18); Bilirubin, Total 0.71 mg/dL (0.2-1.0); CO2 26.7 mmol/L (21.0-32.0); CREATININE 1.1 mg/dL (0.55-1.02); Calcium 9.6 mg/dL (8.5-10.1); Chloride 103 mmol/L (98-107); Estimated GFR 48.94 (mL/min/1.73m2); Glucose 108 mg/dL (74-106); Potassium 4.2 mmol/L (3.5-5.1); Sodium 137 mmol/L (136-145); Total Protein 7.3 g/dL (6.4-8.2)
[2024-04-29 15:29] LABS: Hemoglobin A1C 5.8 % (<5.7)
== END 2024-04-29 18:49 | disposition home or self-care (01) ==
LOC: NCHCN 18:48
PROVIDERS: PCP Nurse Practitioner Family; Visit Provider Nurse Practitioner Family
DX: Z13.1 Encounter for screening for diabetes mellitus (principal)
CPT/HCPCS: 80053; 83036

== ENCOUNTER 2025-06-19 15:37 | Inpatient (IN) | payer MEDICARE, SELFPAY ==
[2025-06-19] VITALS (53 sets, daily range): BP systolic 162–217; BP diastolic 76–107; PULSE 75–109; RESP 12–36; TEMP 36.4–36.5; O2SAT 84–99
--- NOTE | 2025-06-19 15:30 | RT.EKG_ITS ---
APPROVED REPORT Exam: Resting ECG Reason for Exam: sob Patient Location: E HR:91 bpm ECG Measurements Heart Rate 91 AXIS IN 133 P 41 QRSd 85 QRS 19 QT 351 T 32 QTc 431 Conclusion Sinus rhythm...normal P axis, V-rate 60- 99 Probable left atrial enlargement...P >50mS, <-0.10mV V1 No STEMI
--- NOTE | 2025-06-19 16:00 | DI.RAD_ITS ---
Exam(s) XR PORTABLE CHEST AP EXAM: XR PORTABLE CHEST AP CLINICAL HISTORY: shortness of breath TECHNIQUE: 2D digital imaging was performed. COMPARISON: CR XR LUMBAR SPINE COMPLETE from 09/28/2021 FINDINGS: Overlying monitoring leads. LUNGS: Small right pleural effusion. Significantly increased interstitial markings. Low lung volumes. Bilateral patchy increased densities. HEART: Normal size. AORTA: Normal diameter. Calcification at the arch. BONES: Unremarkable for age. Soft tissues: Unremarkable. IMPRESSION: Limited exam. Small right pleural effusion. Increased interstitial markings in bilateral patchy densities could represent combination of chronic interstitial changes with superimposed pneumonia versus pulmonary edema. Clinical correlation recommended. The preliminary [facility] report was reviewed. DATA REPOSITORY: RADIATION DOSE DELIVERED:
[2025-06-19 16:22] LABS: Abs Immature Grans 0.25 10^3/uL (0.0-0.06); BE (Venous) 6 mmol/L (-2-3); HCO3 (Venous) 30 mmol/L (23-28); HCT 44.5 % (36.0-46.0); HGB 15.1 g/dL (11.2-15.7); Immature Grans % 1.6 %; MCH 27.5 pg (27.0-33.0); MCHC 33.9 % (32.0-36.0); MCV 81 fL (80-95); MPV 9.5 fL (8.0-11.0); O2 Sat (Venous) 60 %; Platelet Count 301 10^3/uL (130-400); RBC 5.49 10^6/uL (3.93-5.22); RDW 14.9 % (11.7-14.6); RDW-SD 44.3 fL; TCO2 (Venous) 26 mmol/L (24-29); WBC 15.74 10^3/uL (4.4-10.8); pCO2 (Venous) 43 mmHg (41-51); pO2 (Venous) 29 mmHg
[2025-06-19] MEDS: methylPREDNISolone SUCC 125 MG VIAL IVP (16:25)
[2025-06-19] MEDS: Albuterol/Ipratropium 3 ML UPD VIAL 6 ML UPD (16:26)
[2025-06-19 16:40] LABS: Glucose Negative (Negative)
[2025-06-19 16:42] LABS: Troponin I 7 ng/L (<35)
[2025-06-19 16:46] LABS: ALT 66 U/L (10-49); AST 43 U/L (<34); Albumin 4.3 g/dL (3.4-5.0); Alkaline Phosphatase 447 U/L (46-116); Anion Gap 8.8 mmol/L (3-11); BUN 20 mg/dL (9-23); Bilirubin, Total 1.40 mg/dL (0.2-1.2); CO2 27.8 mmol/L (20.0-31.0); Calcium 9.2 mg/dL (8.3-10.6); Chloride 90 mmol/L (98-107); Glucose 111 mg/dL (74-106); Potassium 3.0 mmol/L (3.5-5.1); Sodium 127 mmol/L (136-145); Total Protein 7.0 g/dL (5.7-8.2)
[2025-06-19 16:47] LABS: C & S Indicated? No
[2025-06-19 16:48] LABS: D-Dimer 840 ng/mlFEU (<500)
[2025-06-19] MEDS: Potassium Chloride 20 MEQ TABCR 40 MEQ PO (17:12)
[2025-06-19] MEDS: DOXYCYCLINE 100 MG in Normal Saline 100 ML IVPB (17:12)
[2025-06-19] MEDS: cefTRIAXone 2 GM/50 ML BAG IVPB (17:12)
--- NOTE | 2025-06-19 17:17 | DI.[facility]_ITS ---
PROCEDURE INFORMATION: Exam: XR Chest Exam date and time: 06/19/2025 5:00 PM Age: 89 years old Clinical indication: Shortness of breath TECHNIQUE: Imaging protocol: Radiologic exam of the chest. Views: 1 view. COMPARISON: No relevant prior studies available. FINDINGS: Lungs: There are coarse interstitial changes seen in the lungs with some apparent airspace opacity in the right mid and lower lungs. Suspect pulmonary vascularity redistribution. Pleural spaces: Small right pleural effusion. Heart/Mediastinum: Mild cardiomegaly. Vasculature: Atherosclerotic change noted in the aorta. Bones/joints: Unremarkable. IMPRESSION: Coarse bilateral interstitial changes, uncertain chronicity. Consider possible infectious process such as virus. A degree of congestive heart failure is not excludable. Dictated and Authenticated by: Jessica Glaser MD. Orderin Chidi Rivera MD
--- NOTE | 2025-06-19 17:26 | ED.GENADUL_ITS ---
Discharge Plan Disposition Patient Disposition: Admit to [facility] Condition: Serious Discharge Details Clinical Impression: Pneumonia, Hyponatremia, Sepsis, Hypokalemia, Transaminitis, Respiratory failure Primary Care Provider: Kasey Garcia ED Provider: Nicole Murillo Home Meds and New Rx's Prescriptions: No Action ICaps AREDS [id number] capsule 1 cap PO BID lisinopril 30 mg tablet 60 mg PO DAILY albuterol sulfate 90 mcg/actuation HFA aerosol inhaler 1 inh INHALATION PRN Patient Comments: INHALE TWO PUFFS BY MOUTH EVERY 6 TO 8 HOURS NEEDED FOR WHEEZE, OR SHORTNESS OF BREATH amlodipine 5 mg tablet 5 mg PO DAILY Patient Comments: TAKE ONE TABLET BY MOUTH EVERY DAY doxycycline hyclate 100 mg capsule 100 mg PO BID Patient Comments: TAKE ONE CAPSULE BY MOUTH TWICE A DAY FOR 7 DAYS amlodipine 2.5 mg tablet 1 tab PO DAILY Patient Comments: TAKE ONE TABLET BY MOUTH EVERY MORNING FOR HIGH BLOOD PRESSURE acetaminophen [Tylenol Arthritis Pain] 650 mg tablet extended release 650 mg PO Q8H PRN PRNQty: 0 0RF HPI General Date/Time Provider Initiated Documentation: 06/19/25 15:46 . HPI Narrative: This 89-year-old female presents with increased work of breathing over the course of the past week. Was prescribed inhaler and I will doxycycline but notes that having worsening symptoms despite interventions. Denies history of COPD prior smoker. Denies known history of asthma. States feels tired and weak and shortness of breath denies any chest pain. Unsure regarding fever. Denies any weight gain or history of CHF per patient. Related Data Home Medications ?Medication ?Instructions ?Recorded ?Confirmed lisinopril 30 mg tablet 60 mg PO DAILY 10/16/2105/29 vitamins A,C,G-shpo-[id number] 4,296 1 cap PO BID 10/16/21 06/19/25 mcg-226 mg-90 mg capsule (ICaps AREDS) amlodipine 2.5 mg tablet 1 tab PO DAILY 03/18/2205/29 acetaminophen 650 mg 650 mg PO Q8H PRN PRN #0 tab s 03/20/22 06/19/25 tablet,extended release (Tylenol Arthritis Pain) albuterol sulfate 90 mcg/actuation 1 inh inhalation WA N 06/19/25 06/19/25 aerosol inhaler amlodipine 5 mg tablet 5 mg PO DAILY 06/19/2506/19 doxycycline hyclate 100 mg capsule 100 mg PO BID 06/1906/19/25 Previous Rx's ?Medication ?Instructions ?Recorded acetaminophen 650 mg 650 mg PO Q8H PRN PRN #0 tab s 03/20/22 tablet,extended release (Tylenol Arthritis Pain) Allergies Allergy/AdvReac Type Severity Reaction Status Date / Time simvastatin Allergy Mild Unknown Verified 06/19/25 16:02 adhesive tape AdvReac Severe rash Verified 06/19/25 16:02 environmental Allergy Skin Rash Uncoded 06/19/25 16:02 General Stated Complaint: RespSymp MARIO: 3 Exam Narrative Exam Narrative: Alert and oriented 89-year-old female presenting in acute respiratory distress lungs with wheezes, no abdominal tenderness no calf swelling or tenderness appreciated significant increased work of breathing speaking in complete sentences although dyspneic. Course Vital Signs Vital signs: Vital Signs Temperature 36.4 C 06/19/25 15:50 Pulse 88 06/19/25 15:50 Respiratory Rate 20 06/19/25 15:50 Blood Pressure 189/84 H 06/19/25 15:50 Pulse Oximetry 84 L 06/19/25 15:50 Temperature 36.4 C 06/19/25 16:17 Temperature Source Oral 06/19/25 16:17 Pulse 81 06/19/25 17:16 Pulse 81 06/19/25 17:16 Respiratory Rate 22 06/19/25 17:16 Respiratory Effort Short of Breath 06/19/25 16:19 Blood Pressure 212/78 H 06/19/25 17:16 Blood Pressure Mean 118 06/19/25 17:16 Pulse Oximetry 96 06/19/25 17:16 Oxygen Delivery Method Nasal Cannula 06/19/25 16:26 Oxygen Flow Rate 2 06/19/25 16:26 Pain Level 0 06/19/25 16:17 Lab/Test Results Lab/Test Results: 06/19/25 17:01 Blood Blood Culture - Pending 06/19/25 17:01 Blood Blood Culture - Pending Laboratory Tests Range/Units 06/19/25 06/19/25 16:15 16:23 WBC (4.4-10.8) 10^3/uL 15.74 H RBC (3.93-5.22) 10^6/uL 5.49 H Hgb (11.2-15.7) g/dL 15.1 Hct (36.0-46.0) % 44.5 MCV (80-95) fL 81 MCH (27.0-33.0) pg 27.5 MCHC (32.0-36.0) % 33.9 RDW (11.7-14.6) % 14.9 H Plt Count (130-400) 10^3/uL 301 MPV (8.0-11.0) fL 9.5 Immature Gran % % 1.6 Neutrophils % % 78.5 Lymphocytes % % 12.2 Monocytes % % 7.3 Eosinophils % % 0.1 Basophils % % 0.3 Nucleated RBC % (0.0-0.3) % 0.0 Absolute Neutrophils (1.2-6.7) 10^3/uL 12.36 H Absolute Lymphocytes (1.2-3.4) 10^3/uL 1.92 Absolute Monocytes (0.1-0.8) 10^3/uL 1.15 H Absolute Eosinophils (0.0-0.7) 10^3/uL 0.02 Absolute Basophils (0.0-0.2) 10^3/uL 0.05 D-Dimer (<500) ng/mlFEU 840 H VBG pH (7.31-7.41) 7.45 H VBG pCO2 (41-51) mmHg 43 VBG pO2 mmHg 29 VBG HCO3 (23-28) mmol/L 30 H VBG Total CO2 (24-29) mmol/L 26 VBG O2 Saturation % 60 VBG Base Excess (-2-3) mmol/L 6 H VBG Lactate (<or=2.0) mmol/L 2.0 Sodium (136-145) mmol/L 127 L Potassium (3.5-5.1) mmol/L 3.0 L Chloride (98-107) mmol/L 90 L Carbon Dioxide (20.0-31.0) mmol/L 27.8 Anion Gap (3-11) mmol/L 8.8 BUN (9-23) mg/dL 20 Creatinine (0.55-1.02) mg/dL 0.53 L Est GFR (CKD-EPI 2020) (mL/min/1.73m2) 108.85 Glucose (74-106) mg/dL 111 H Calcium (8.3-10.6) mg/dL 9.2 Total Bilirubin (0.2-1.2) mg/dL 1.40 H AST (<34) U/L 43 H ALT (10-49) U/L 66 H Alkaline Phosphatase (46-116) U/L 447 H Troponin I (<35) ng/L 7 NT-Pro-B Natriuret Pep (<300) pg/mL 1595 H Total Protein (5.7-8.2) g/dL 7.0 Albumin (3.4-5.0) g/dL 4.3 Urine Color (Yellow) Yellow Urine Clarity (Clear) Clear Urine pH (5-8) 6.0 Ur Specific [place] (1.005-1.025) 1.025 Urine Protein (Neg-Trace) mg/dL 100 H Urine Ketones (Negative) mg/dL Negative Urine Blood (Negative) Trace-intact H Urine Nitrite (Negative) Negative Urine Bilirubin (Negative) Negative Urine Urobilinogen (Up to 0.2) mg/dL 1.0 H Ur Leukocyte Esterase (Negative) Negative Urine RBC (0-2) HPF 3-5 H Urine WBC (0-5) HPF 3-5 Ur Epithelial Cells (Negative) HPF Many Urine Crystals (Negative) HPF Negative Urine Bacteria (Negative) HPF Negative Urine Mucus (Negative) Heavy Urine Other (Negative) Rare Yeast Ur Culture Indicated? No Urine Glucose (Negative) mg/dL Negative Medical Decision Making Results: Chest x-ray with multifocal infiltrates per per my interpretation pending radiology overview, leukocytosis at 15,000 lactate within normal limits pH of 7.45 oxygen of 84% on room air initially AST of 43 ALT of 66 T. bili of 1.4 BNP 1595, port score of 165 indicating need for admission Assessment and plan: Patient with respiratory failure sick for the past week on outpatient antibiotics and failing. Having difficulty getting around her house secondary to dyspnea on arrival oxygen 84% on room air. LFTs are elevated for patient as is T. bili, she has no abdominal tenderness on assessment and I suspect this is pneumonia related. She will receive 1 L of fluids but has been hemodynamically otherwise stable. Her blood pressure is elevated but she states this is her baseline when she becomes stressed. Will allow for permissive hypertension as I suspect she has pneumonia with meeting sepsis criteria. She received 125 mg of Solu-Medrol. Her BNP is elevated I suspect this is pneumonia related, D-dimer is age adjusted within normal limits at 840. She has received 3 DuoNebs and feels some improvement although still quite wheezy. Agreeable to admission at this time. Negative flu, COVID, RSV. potassium has been sup plemented with 40 meq po. Critical Care Time Critical Care Time Attestation: 45 minutes of critical care time secondary to pneumonia with hypoxic respiratory failure requiring oxygen supplementation 3 DuoNebs, methylprednisone, telemetry monitoring, IV antibiotics, IV fluid resuscitation, admission to the hospital, diagnostic image interpretation and review, diagnostic lab interpretation and review [facility] All Active Problems (Updated 06/19/25 @ 19:59 by JIMMIE Martinez) Respiratory failure (Acute) Hematuria (Acute) Elevated brain natriuretic peptide (BNP) level (Acute) Transaminitis (Acute) Hyponatremia (Acute) Hypokalemia (Acute) Pneumonia (Acute) Sepsis (Acute) Hypertension (Chronic) Low back pain (Acute) CKD (chronic kidney disease) stage 3, GFR 30-59 ml/min (Acute) Hyperlipidemia (Acute) Macular degeneration of right eye (Acute) Cataracts, bilateral (Acute) Degenerative joint disease of left hip (Acute) Degenerative joint disease of right hip (Acute) Medical History Fecal occult blood test positive Right hip pain Seasonal allergies Eczema Former smoker Surgical History (Updated 03/21/23 @ 10:29 by JIMMIE Manzano) History of bilateral hip arthroplasty (03/19/22) Hx of cataract extraction Social History Smoking/Tobacco Use Status: Former Tobacco Use Quit Date: 07/28/08 Smoking risk assessment performed?: Yes Alcohol Intake: current Alcohol Intake frequency: a few times a week Alcohol type: wine Drug use: Never Substance use type: does not use Do you feel safe at home: Yes Do you feel safe in your relationship?: Yes
[2025-06-19 17:33] LABS: COVID-19 PCR Negative (Negative); RSV PCR Negative (Negative)
[2025-06-19 18:03] LABS: Troponin I 6 ng/L (<35)
[2025-06-19] MEDS: Albuterol/Ipratropium 3 ML UPD VIAL UPD ×2 (18:16→21:40)
[2025-06-19] MEDS: Normal Saline 1,000 ML 125 ML IV (18:36)
--- NOTE | 2025-06-19 19:17 | W.PM.HP.N ---
Date of service: 06/19/25 Time of Service: 19:17 Assessment and Plan Assessment and plan (1) Sepsis: Status: Acute Assessment and plan: Continue with IV fluid resuscitation. Patient on normal saline at 125. Repeat lactate level in 3 hours. Lactate level was within normal limits on admission now. Continue with antibiotics Rocephin and Zithromax. Patient appeared to have failed outpatient doxycycline. (2) Pneumonia: Status: Acute Assessment and plan: As above, patient did get blood cultures. I have added Legionella and MRSA swab as she did fail outpatient therapy. Patient's x-ray does not show clear pneumonia but it is mention in the differential in the radiographic report IMPRESSION: Coarse bilateral interstitial changes, uncertain chronicity. Consider possible infectious process such as virus. A degree of congestive heart failure is not excludable. (3) Hypertension: Status: Chronic Assessment and plan: Patient does not take her prescribed meds. I have reinstituted her INDER inhibitor as well as her amlodipine. I did add hydralazine as needed (4) Hypokalemia: Status: Acute Assessment and plan: Replace with oral replacement (5) Hyponatremia: Status: Acute Assessment and plan: Continue with IV resuscitation for now. Recheck labs in the a.m. (6) Transaminitis: Status: Acute Assessment and plan: Exact etiology is unknown although her lab values are not significantly elevated recheck in the a.m. (7) Former smoker: Assessment and plan: Noted (8) Elevated brain natriuretic peptide (BNP) level: Status: Acute Assessment and plan: Bedside echo did not show any signs of congestive heart failure. Consider formal echo discretion of PCP (9) Hematuria: Status: Acute Assessment and plan: Recommend repeat urinalysis in 4 to 6 weeks to ensure resolution. DVT prophylaxis with Lovenox. History of Present Illness History of Present Illness Chief Complaint: sob Narrative: Ms Diaz is a 89-year-old female who enjoys remarkably good health but approximately a week ago complained of worsening shortness of breath and went to her PCP. She was started on doxycycline and initially improved but over the last 48 hours became more short of breath. Patient presents to the ED today for further evaluation and treatment. While she was in the ED she did appear to have meet SIRS criteria as well as sepsis. Patient had a respiratory rate over 20 white count of over 12,000. Source of infection is most likely her lungs. Workup in the ED was also indicative of hypokalemia and hyponatremia. She did have a elevated D-dimer but with just a creatinine was within normal limits. BNP was 1595. Viral panel was negative. She was noted to have mild hematuria in her urine. Lactate level was 2. Curb 65 score was 2. EKG did show essentially normal sinus rhythm but did appear to have some T wave inversion in septal leads. Her troponin was negative x 1. She was noted to have hypertension with a blood pressure of 212/78. Satting 96% on 2 L. Patient does not use oxygen at home. Patient has remote history of tobacco use. patient's CODE STATUS was verified as DNR. I did not ask her about her immunization status. Review of Systems Narrative: Negative with exception of she does complain of a chronic cough which she attributes to bad air quality. PFSH All Active Problems (Updated 06/19/25 @ 19:24 by Gerber Osorio MD) Hematuria (Acute) Elevated brain natriuretic peptide (BNP) level (Acute) Transaminitis (Acute) Hyponatremia (Acute) Hypokalemia (Acute) Pneumonia (Acute) Sepsis (Acute) Hypertension (Chronic) Low back pain (Acute) CKD (chronic kidney disease) stage 3, GFR 30-59 ml/min (Acute) Hyperlipidemia (Acute) Macular degeneration of right eye (Acute) Cataracts, bilateral (Acute) Degenerative joint disease of left hip (Acute) Degenerative joint disease of right hip (Acute) Medical History Fecal occult blood test positive Right hip pain Seasonal allergies Eczema Former smoker Surgical History (Updated 03/21/23 @ 10:29 by JIMMIE Manzano) History of bilateral hip arthroplasty (03/19/22) Hx of cataract extraction Social History Smoking/Tobacco Use Status: Former Tobacco Use Quit Date: 07/28/08 Smoking risk assessment performed?: Yes Alcohol Intake: current Alcohol Intake frequency: a few times a week Alcohol type: wine Drug use: Never Substance use type: does not use Do you feel safe at home: Yes Do you feel safe in your relationship?: Yes Meds Allergies and Home Medications Allergies Allergy/AdvReac Type Severity Reaction Status Date / Time simvastatin Allergy Mild Unknown Verified 06/19/25 16:02 adhesive tape AdvReac Severe rash Verified 06/19/25 16:02 environmental Allergy Skin Rash Uncoded 06/19/25 16:02 Home Medications ?Medication ?Instructions ?Recorded ?Confirmed ?Type lisinopril 30 mg tablet 60 mg PO DAILY 10/16/21 06/19/25 History vitamins A,C,N-ynta-phtpgg 4,296 1 cap PO BID 10/16/21 06/19/25 History mcg-226 mg-90 mg capsule (ICaps AREDS) amlodipine 2.5 mg tablet 1 tab PO DAILY 03/18/22 06/19/25 History acetaminophen 650 mg 650 mg PO Q8H PRN PRN #0 tabs 03/20/22 06/19/25 Rx tablet,extended release (Tylenol Arthritis Pain) albuterol sulfate 90 mcg/actuation 1 inh inhalation PRN 06/19/25 06/19/25 History aerosol inhaler amlodipine 5 mg tablet 5 mg PO DAILY 06/19/25 06/19/25 History doxycycline hyclate 100 mg capsule 100 mg PO BID 06/19/25 06/19/25 History Exam Narrative Exam Narrative: HEENT normocephalic atraumatic mucous membranes moist oropharynx is clear nasal cannula in place Neck mild JVD no lymphadenopathy Cardiovascular regular rate and rhythm no murmur rubs or gallops Lungs bilateral expiratory wheeze no accessory muscle use speaking complete sentences Abdomen soft nontender nondistended Extremities no sinus clubbing or edema Neurologic cranial nerves II through XII intact as tested nonfocal Psych alert and oriented x 3 Results Labs 06/19/25 16:15 06/19/25 16:15 Labs: Laboratory Results - last 24 hr 06/19/25 06/19/25 06/19/25 16:15 16:23 16:52 WBC 15.74 H RBC 5.49 H Hgb 15.1 Hct 44.5 MCV 81 MCH 27.5 MCHC 33.9 RDW 14.9 H Plt Count 301 MPV 9.5 Immature Gran % 1.6 Neutrophils % 78.5 Lymphocytes % 12.2 Monocytes % 7.3 Eosinophils % 0.1 Basophils % 0.3 Nucleated RBC % 0.0 Absolute Neutrophils 12.36 H Absolute Lymphocytes 1.92 Absolute Monocytes 1.15 H Absolute Eosinophils 0.02 Absolute Basophils 0.05 D-Dimer 840 H VBG pH 7.45 H VBG pCO2 43 VBG pO2 29 VBG HCO3 30 H VBG Total CO2 26 VBG O2 Saturation 60 VBG Base Excess 6 H VBG Lactate 2.0 Sodium 127 L Potassium 3.0 L Chloride 90 L Carbon Dioxide 27.8 Anion Gap 8.8 BUN 20 Creatinine 0.53 L Est GFR (CKD-EPI 2020) 108.85 Glucose 111 H Calcium 9.2 Total Bilirubin 1.40 H AST 43 H ALT 66 H Alkaline Phosphatase 447 H Troponin I 7 NT-Pro-B Natriuret Pep 1595 H Total Protein 7.0 Albumin 4.3 Urine Color Yellow Urine Clarity Clear Urine pH 6.0 Ur Specific [place] 1.025 Urine Protein 100 H Urine Ketones Negative Urine Blood Trace-intact H Urine Nitrite Negative Urine Bilirubin Negative Urine Urobilinogen 1.0 H Ur Leukocyte Esterase Negative Urine RBC 3-5 H Urine WBC 3-5 Ur Epithelial Cells Many Urine Crystals Negative Urine Bacteria Negative Urine Mucus Heavy Urine Other Rare Yeast Ur Culture Indicated? No Urine Glucose Negative COVID-19 Source Nasopharynx SARS-CoV-2 (PCR) Negative Influenza Type A (PCR) Negative Influenza Type B (PCR) Negative RSV (PCR) Negative 06/19/25 17:30 WBC RBC Hgb Hct MCV MCH MCHC RDW Plt Count MPV Immature Gran % Neutrophils % Lymphocytes % Monocytes % Eosinophils % Basophils % Nucleated RBC % Absolute Neutrophils Absolute Lymphocytes Absolute Monocytes Absolute Eosinophils Absolute Basophils D-Dimer VBG pH VBG pCO2 VBG pO2 VBG HCO3 VBG Total CO2 VBG O2 Saturation VBG Base Excess VBG Lactate Sodium Potassium Chloride Carbon Dioxide Anion Gap BUN Creatinine Est GFR (CKD-EPI 2020) Glucose Calcium Total Bilirubin AST ALT Alkaline Phosphatase Troponin I 6 NT-Pro-B Natriuret Pep Total Protein Albumin Urine Color Urine Clarity Urine pH Ur Specific [place] Urine Protein Urine Ketones Urine Blood Urine Nitrite Urine Bilirubin Urine Urobilinogen Ur Leukocyte Esterase Urine RBC Urine WBC Ur Epithelial Cells Urine Crystals Urine Bacteria Urine Mucus Urine Other Ur Culture Indicated? Urine Glucose COVID-19 Source SARS-CoV-2 (PCR) Influenza Type A (PCR) Influenza Type B (PCR) RSV (PCR) Last Vital Signs Temp 36.4 C 06/19/25 16:17 Pulse 83 06/19/25 18:16 Resp 21 06/19/25 17:40 BP 212/78 H 06/19/25 17:16 Pulse Ox 96 06/19/25 18:16 Time Spent Time spent with Patient: 55-74 minutes Time was spent: preparing to see the patient(eg.review tests), obtaining and/or reviewing separately otained hiistory, ordering medications,tests, procedures, referring, communicating with other health customer care professional, indepentently interpreting results, counseling the patient and care coordination
[2025-06-19] MEDS: AZITHROMYCIN 500 MG in Normal Saline 250 ML 250 MG IVPB (20:14)
[2025-06-19] MEDS: Enoxaparin 40 MG/0.4 ML SYR SC (20:15)
--- NOTE | 2025-06-19 21:46 | W.PC.ACHO ---
Registration Status: ADM TATIANNA Primary Language: Preferred Language: Armenian ED Information & Data Chief Complaint RespSymp 06/19/25 17:30 Triage Note Patient state she has been 06/19/25 15:50 having difficulty breathing for the past week, got antibiotics from her PCP but the symptoms returned again last night. 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) Hx of cataract extraction Most Recent Vital Signs Temperature 36.5 C 06/19/25 21:23 Temperature Source Oral 06/19/25 16:17 Pulse 85 06/19/25 21:23 Pulse Rhythm Regular 06/19/25 21:23 Pulse 100 H 06/19/25 20:31 Respiratory Rate 18 06/19/25 21:23 Respiratory Effort Short of Breath 06/19/25 21:23 Respiratory Depth Deep 06/19/25 21:23 Blood Pressure 165/76 H 06/19/25 21:23 Blood Pressure Mean 125 06/19/25 20:30 Pulse Oximetry 97 06/19/25 21:23 Oxygen Delivery Method Nasal Cannula 06/19/25 21:23 Oxygen Flow Rate 2 06/19/25 21:23 Pain Level 0 06/19/25 21:23 Allergies simvastatin Allergy (Mild, Verified 06/19/25 16:02) Unknown GI upset adhesive tape Adverse Reaction (Severe, Verified 06/19/25 16:02) rash blisters environmental Allergy (Uncoded 06/19/25 16:02) Skin Rash nasal congestion Active Medications Generic Name Dose Route Start Last Admin Trade Name Chris PRN Reason Stop Dose Admin Enoxaparin Sodium 40 mg 06/19/25 20:00 06/19/25 20:15 Enoxaparin 40 Mg/0.4 Ml Syr SC 40 mg Q24H KRISTY Administration Azithromycin 500 mg/ Sodium 250 mls @ 250 mls/hr 06/19/25 19:15 06/19/25 20:14 Chloride IVPB 250 mls/hr Q24H KRISTY Administration IV IV Catheter Type [Right Saline Lock Antecubital] IV Catheter Gauge [Right 18 Antecubital] Diet Orders Category Date Time Status Regular/Normal [DIET] Nutrition 06/20/25 Breakfast Ordered Diagnostics 06/19/25 06/19/25 06/19/25 Range/Units 23:00 20:20 17:30 WBC (4.4-10.8) 10^3/uL RBC (3.93-5.22) 10^6/uL Hgb (11.2-15.7) g/dL Hct (36.0-46.0) % MCV (80-95) fL MCH (27.0-33.0) pg MCHC (32.0-36.0) % RDW (11.7-14.6) % Plt Count (130-400) 10^3/uL MPV (8.0-11.0) fL Immature Gran % % Neutrophils % % Lymphocytes % % Monocytes % % Eosinophils % % Basophils % % Nucleated RBC % (0.0-0.3) % Absolute Neutrophils (1.2-6.7) 10^3/uL Absolute Lymphocytes (1.2-3.4) 10^3/uL Absolute Monocytes (0.1-0.8) 10^3/uL Absolute Eosinophils (0.0-0.7) 10^3/uL Absolute Basophils (0.0-0.2) 10^3/uL D-Dimer (<500) ng/mlFEU VBG pH (7.31-7.41) VBG pCO2 (41-51) mmHg VBG pO2 mmHg VBG HCO3 (23-28) mmol/L VBG Total CO2 (24-29) mmol/L VBG O2 Saturation % VBG Base Excess (-2-3) mmol/L VBG Lactate Pending (<or=2.0) mmol/L Sodium (136-145) mmol/L Potassium (3.5-5.1) mmol/L Chloride (98-107) mmol/L Carbon Dioxide (20.0-31.0) mmol/L Anion Gap (3-11) mmol/L BUN (9-23) mg/dL Creatinine (0.55-1.02) mg/dL Est GFR (CKD-EPI 2020) (mL/min/1.73m2) Glucose (74-106) mg/dL Calcium (8.3-10.6) mg/dL Total Bilirubin (0.2-1.2) mg/dL AST (<34) U/L ALT (10-49) U/L Alkaline Phosphatase (46-116) U/L Troponin I 6 (<35) ng/L NT-Pro-B Natriuret Pep (<300) pg/mL Total Protein (5.7-8.2) g/dL Albumin (3.4-5.0) g/dL Urine Color (Yellow) Urine Clarity (Clear) Urine pH (5-8) Ur Specific Felt (1.005-1.025) Urine Protein (Neg-Trace) mg/dL Urine Ketones (Negative) mg/dL Urine Blood (Negative) Urine Nitrite (Negative) Urine Bilirubin (Negative) Urine Urobilinogen (Up to 0.2) mg/dL Ur Leukocyte Esterase (Negative) Urine RBC (0-2) HPF Urine WBC (0-5) HPF Ur Epithelial Cells (Negative) HPF Urine Crystals (Negative) HPF Urine Bacteria (Negative) HPF Urine Mucus (Negative) Urine Other (Negative) Ur Culture Indicated? Urine Glucose (Negative) mg/dL COVID-19 Source SARS-CoV-2 (PCR) (Negative) Influenza Type A (PCR) (Negative) Influenza Type B (PCR) (Negative) RSV (PCR) (Negative) MRSA (TEM-PCR) Pending Anti-Streptolysin O Ttr Pending Anti-DNase B (Strep) Pending 06/19/25 06/19/25 06/19/25 Range/Units 16:52 16:23 16:15 WBC 15.74 H (4.4-10.8) 10^3/uL RBC 5.49 H (3.93-5.22) 10^6/uL Hgb 15.1 (11.2-15.7) g/dL Hct 44.5 (36.0-46.0) % MCV 81 (80-95) fL MCH 27.5 (27.0-33.0) pg MCHC 33.9 (32.0-36.0) % RDW 14.9 H (11.7-14.6) % Plt Count 301 (130-400) 10^3/uL MPV 9.5 (8.0-11.0) fL Immature Gran % 1.6 % Neutrophils % 78.5 % Lymphocytes % 12.2 % Monocytes % 7.3 % Eosinophils % 0.1 % Basophils % 0.3 % Nucleated RBC % 0.0 (0.0-0.3) % Absolute Neutrophils 12.36 H (1.2-6.7) 10^3/uL Absolute Lymphocytes 1.92 (1.2-3.4) 10^3/uL Absolute Monocytes 1.15 H (0.1-0.8) 10^3/uL Absolute Eosinophils 0.02 (0.0-0.7) 10^3/uL Absolute Basophils 0.05 (0.0-0.2) 10^3/uL D-Dimer 840 H (<500) ng/mlFEU VBG pH 7.45 H (7.31-7.41) VBG pCO2 43 (41-51) mmHg VBG pO2 29 mmHg VBG HCO3 30 H (23-28) mmol/L VBG Total CO2 26 (24-29) mmol/L VBG O2 Saturation 60 % VBG Base Excess 6 H (-2-3) mmol/L VBG Lactate 2.0 (<or=2.0) mmol/L Sodium 127 L (136-145) mmol/L Potassium 3.0 L (3.5-5.1) mmol/L Chloride 90 L (98-107) mmol/L Carbon Dioxide 27.8 (20.0-31.0) mmol/L Anion Gap 8.8 (3-11) mmol/L BUN 20 (9-23) mg/dL Creatinine 0.53 L (0.55-1.02) mg/dL Est GFR (CKD-EPI 2020) 108.85 (mL/min/1.73m2) Glucose 111 H (74-106) mg/dL Calcium 9.2 (8.3-10.6) mg/dL Total Bilirubin 1.40 H (0.2-1.2) mg/dL AST 43 H (<34) U/L ALT 66 H (10-49) U/L Alkaline Phosphatase 447 H (46-116) U/L Troponin I 7 (<35) ng/L NT-Pro-B Natriuret Pep 1595 H (<300) pg/mL Total Protein 7.0 (5.7-8.2) g/dL Albumin 4.3 (3.4-5.0) g/dL Urine Color Yellow (Yellow) Urine Clarity Clear (Clear) Urine pH 6.0 (5-8) Ur Specific Felt 1.025 (1.005-1.025) Urine Protein 100 H (Neg-Trace) mg/dL Urine Ketones Negative (Negative) mg/dL Urine Blood Trace-intact H (Negative) Urine Nitrite Negative (Negative) Urine Bilirubin Negative (Negative) Urine Urobilinogen 1.0 H (Up to 0.2) mg/dL Ur Leukocyte Esterase Negative (Negative) Urine RBC 3-5 H (0-2) HPF Urine WBC 3-5 (0-5) HPF Ur Epithelial Cells Many (Negative) HPF Urine Crystals Negative (Negative) HPF Urine Bacteria Negative (Negative) HPF Urine Mucus Heavy (Negative) Urine Other Rare Yeast (Negative) Ur Culture Indicated? No Urine Glucose Negative (Negative) mg/dL COVID-19 Source Nasopharynx SARS-CoV-2 (PCR) Negative (Negative) Influenza Type A (PCR) Negative (Negative) Influenza Type B (PCR) Negative (Negative) RSV (PCR) Negative (Negative) MRSA (TEM-PCR) Anti-Streptolysin O Ttr Anti-DNase B (Strep) 06/19/25 17:40 Blood Culture - Pending Blood 06/19/25 17:30 Blood Culture - Pending Blood Intake and Output - 24 Hour Total 06/19/25 15:37 thru 06/19/25 21:23 Intake Total 180 Output Total 300 Balance -120 Weight 55.792 kg Intake: IV 180 Output: Urine 300 Other: Urine Color Yellow Urine Appearance Clear Urine Odor Normal Falls Risk Assessment History of Falls No History 06/19/25 21:23 Contributing Factors No Factors 06/19/25 21:23 Ambulatory Aids Independent 06/19/25 21:23 Gait Evaluation No gait disturbance 06/19/25 21:23 Cognition No cognitive impairment 06/19/25 21:23 Fall Total Score 0 06/19/25 21:23 Level of Risk Standard/Low Risk 06/19/25 21:23 Problems (Last Reviewed 04/05/22 @ 08:00 by Jonah Wood MD) Hematuria (Acute) Elevated brain natriuretic peptide (BNP) level (Acute) Transaminitis (Acute) Hyponatremia (Acute) Hypokalemia (Acute) Pneumonia (Acute) Sepsis (Acute) Hypertension (Chronic) Attestation Statement: By documenting the first initial, last name, and credentials of the reporting nurse below, both parties acknowledge that all relevant information regarding the patient handoff has been communicated, and that all questions have been addressed to ensure continuity and safety of care. Additional Patient Information/Comments: Received pt form ED per ed bed accompanied by the Ed nu and one [facility].Received pt with IVf ongoing and abx on her PIV on right AC.O2 canulla hooked @ 2lpm.Transferred pt to bed,pt able to ambulate.Denies pain.C/o mild SOB on exertion.Situated pt into comfort.Ensured safety.Able to make needs known. Report Received From: [facility] ED nurse around 2034
[2025-06-19] MEDS: Normal Saline Flush 10 ML SYR IVP (21:52)
[2025-06-19 22:01] LABS: MRSA PCR Negative (Negative)
[2025-06-19] MEDS: Potassium Chloride 10 MEQ CAPCR 40 MEQ PO (22:40)
[2025-06-19] MEDS: Normal Saline 1,000 ML 150 ML IV (23:44)
[2025-06-20] VITALS (16 sets, daily range): BP systolic 158–200; BP diastolic 69–100; PULSE 75–94; RESP 16–20; TEMP 36.2–37.5; O2SAT 88–96
[2025-06-20] MEDS: Albuterol/Ipratropium 3 ML UPD VIAL UPD ×4 (01:56→19:45)
[2025-06-20] MEDS: Normal Saline 1,000 ML 150 ML IV ×2 (02:15→09:11)
[2025-06-20 06:24] LABS: Abs Immature Grans 0.20 10^3/uL (0.0-0.06); HCT 41.0 % (36.0-46.0); HGB 14.0 g/dL (11.2-15.7); Immature Grans % 1.6 %; MCH 28.2 pg (27.0-33.0); MCHC 34.1 % (32.0-36.0); MCV 83 fL (80-95); MPV 9.7 fL (8.0-11.0); Platelet Count 249 10^3/uL (130-400); RBC 4.97 10^6/uL (3.93-5.22); RDW 15.2 % (11.7-14.6); RDW-SD 45.7 fL; WBC 12.56 10^3/uL (4.4-10.8)
[2025-06-20] MEDS: hydrALAZINE 20 MG/ML VIAL 10 MG IVP (06:29)
[2025-06-20] MEDS: Albuterol 2.5 MG/3 ML INH SOLN VIAL UPD (06:38)
[2025-06-20 06:52] LABS: ALT 60 U/L (10-49); AST 37 U/L (<34); Albumin 3.7 g/dL (3.4-5.0); Alkaline Phosphatase 376 U/L (46-116); Anion Gap 8.2 mmol/L (3-11); BUN 16 mg/dL (9-23); Bilirubin, Total 0.90 mg/dL (0.2-1.2); CO2 24.2 mmol/L (20.0-31.0); Calcium 8.9 mg/dL (8.3-10.6); Chloride 99 mmol/L (98-107); Glucose 123 mg/dL (74-106); Potassium 4.3 mmol/L (3.5-5.1); Sodium 131 mmol/L (136-145); Total Protein 6.1 g/dL (5.7-8.2)
--- NOTE | 2025-06-20 07:36 | INITIAL_ITS ---
Date of service: 06/20/25 Time of Service: 17:05 Care Management Initial Assmt Initial Assessment Reason for Hospitalization: Pneumonia Functional Status/Living Situation Patient Presentation: Lorraine was sitting up in her chair and awake when CM met with her. She presented to the ED with increased work of breathing over the past week. Per report, she is improving and is anticipated to discharge tomorrow. Lorraine worked with PT, who recommends discharge home with outpatient Pulmonary Rehab or the [facility]. Lorraine was pleasant and engaged appropriately in conversation. She required 2L O2 via nasal cannula after PT but had been on room air at rest earlier in the day. She reports that she lives alone in [place] and recently lost her last year. She has four children, eleven grandchildren, and two great- grandchildren. Lorraine states she is independent at home, with support from friends, family, and neighbors for tasks such as retrieving mail, grocery shopping, lawn care, and home maintenance. She does not currently have home health services; new services are recommended at discharge. Family arrived as CM was leaving, and additional family had been visiting throughout the day. Lorraine has no known AD. CM will continue to follow. Town of Residence: [place] Resides with: Spouse Significant Other/Family: Local (Children, grandchildren, great grand children ) Natural Supports: Family Employment Status: Retired Instrumental Activities of Daily Living (ADLs): Independent Medications Medication Management: No Issues/Barriers identified Physical Functioning/Mobility Assistive Device: Has cane in the hospital but does not use equipment at home Advance Directives Advance Directives: Do you have an Advance Directive: N , 14:53 AD On File at [facility]: N 15, 09:58 Date Asked 06/19/25 06/19/25, 15:40 AD Date Reviewed COLST On File at [facility] COLST Date Scanned Code Status Resuscitation Status DNR/DNI Portal Pt does not currently have a portal and education provided: Yes Insurance Coverage/Financial Issues Insurance: BC/BS [facility] Advantage - [id number] Care Team Visit Care Team Role Provider Type Osei Anton MD MD [facility] STAFF PHYSICIAN Kasey Garcia Primary Care Provider NURSE PRACTITIONER InPatient Baldo Aviles Other Providers OTHER JIMMIE Martinez Emergency Provider PH[employer] Gerber Osorio MD Admit Provider [facility] STAFF PHYSICIAN Attending Provider Discharge Potential Discharge Needs: PCP F/U Appt Anticipated Barriers to Discharge: None Identified Patient/Family Education Needs: Review discharge instructions, discuss Ask Me Three Transportation: Private vehicle Plan: Anticipate Lorraine will be discharged home, with new HH RN, and PT to access for [facility] program, once medically ready. It is recommended she follow up with her community providers, pulmonary rehab and discharge plan of care. She will transport home via private vehicle by family. CM will follow. Social Determinants of Health Screening Will the Patient Participate in the Screening?: Declined to provide Do you worry about having a steady place to live?: yes What is your living situation today?: I have housing today, but am worried about losing it In the past 12 months, have you had to go without electric, gas, oil or water in your home?: no 1. Within the past 12 months, we worried whether our food would run out before we got money to buy more.: Never true 2. Within the past 12 months, the food we bought just didn't last and we didn't have money to get more.: Never true Has lack of transportation kept you from medical appointments or from doing things needed for daily living?: no Has anyone in your life made you feel unsafe or unsupported?: no How hard is it for you to pay for the very basics like food, housing, medical care, and heating? Would you say it is:: Not hard at all Do you want help finding or keeping work or a job?: I do not need or want help If for any reason you need help with day-to-day activities such as bathing, prep aring meals, shopping, managing finances, etc., do you get the help you need?: I get all the help I need How often do you feel lonely or isolated from those around you?: Never Do you speak a language other than Uruguayan at home?: No Does the patient want assistance with any of the above?: No Health Related Social Needs Health related social needs: housing instability, housed, with risk of homelessness (Z59.811) Health related social needs details: living in a house with her . PFSH All Active Problems (Updated 06/20/25 @ 11:04 by Osei Anton MD) Acute hypoxemic respiratory failure (Acute) Severe sepsis (Acute) Respiratory failure (Acute) Hematuria (Acute) Elevated brain natriuretic peptide (BNP) level (Acute) Transaminitis (Acute) Hyponatremia (Acute) Hypokalemia (Acute) Pneumonia (Acute) Sepsis (Acute) Hypertension (Chronic) Low back pain (Acute) CKD (chronic kidney disease) stage 3, GFR 30-59 ml/min (Acute) Hyperlipidemia (Acute) Macular degeneration of right eye (Acute) Cataracts, bilateral (Acute) Degenerative joint disease of left hip (Acute) Degenerative joint disease of right hip (Acute) Medical History Fecal occult blood test positive Right hip pain Seasonal allergies Eczema Former smoker Surgical History (Updated 03/21/23 @ 10:29 by JIMMIE Manzano) 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
[2025-06-20] MEDS: amLODIPine 5 MG TAB PO (08:47)
[2025-06-20] MEDS: Normal Saline Flush 10 ML SYR IVP ×2 (08:47→20:29)
[2025-06-20] MEDS: guaiFENesin 600 MG TABCR PO ×2 (08:48→20:30)
[2025-06-20] MEDS: Potassium Chloride 10 MEQ CAPCR 40 MEQ PO ×2 (08:48→20:29)
--- NOTE | 2025-06-20 10:08 | IN_ITS ---
PT Notes Visit Reasons: Pneumonia Physical Therapy Inpatient Initial Evaluation Date: 06/20/2025 Referring Doctor:? Gerber Osorio MD PT Orders: PT CONSULT: Eval and treat Precautions: Fall. Standard. Activity as tolerated. Patient Profile/Admitting Diagnosis: 89-year-old female presented to the ED 06/19/25 with pneumonia and sepsis. Chest X-Ray reveled multiple infiltrates. ?Pt had a persistent cough for two weeks prior to admission. Pt treated with IV ABX PMHX: Hematuria (Acute) Elevated brain natriuretic peptide (BNP) level (Acute) Transaminitis (Acute) Hyponatremia (Acute) Hypokalemia (Acute) Pneumonia (Acute) Sepsis (Acute) Hypertension (Chronic) Low back pain (Acute) CKD (chronic kidney disease) stage 3, GFR 30-59 ml/min (Acute) Hyperlipidemia (Acute) Macular degeneration of right eye (Acute) Cataracts, bilateral (Acute) Degenerative joint disease of left hip (Acute) Degenerative joint disease of right hip (Acute) Medical History Fecal occult blood test positive Right hip pain Seasonal allergies Eczema Former smoker Surgical History (Updated 03/21/23 @ 10:29 by JIMMIE Manzano) History of bilateral hip arthroplasty (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 Pt has everything she needs on first floor Equipment Owned/DME: Single point cane Subjective: Pt reported feeling well and eager to move. Pt reported she had numbness and tingling in her feet, because she has been sitting for so long. When asked questions about prior level of function pt reported that she?s very active and is always on the move and has a hard time being still. Modified Viktoria scale: 8 prior to instruction in relaxation technique of closing eyes, slow deep breath, although pt has poor diaphragmatic technique. Pt reported it is less but unable to give number after techniques. Objective: General Observation: Pt presented in recliner with feet up, when PT entered. Pt talked quickly and her breathing slowed when her talking speed increased. When pt was performing deep breaths, she had excessive trap activation. Mental Status: Alert and oriented as to person, place, time, and purpose. Able to pay attention, focus, and respond appropriately. Informed Consent/Education:? Patient was instructed in purpose of PT consult and plan of care. Agreeable to proceed with established PT POC to achieve personal goals. Pain: no pain reported, stiffness in back of right knee Vital Signs: Monitored by nursing ? Pre ambulation: SPO2 92%, HR 97 ? Post ambulation: SPO2 88%, HR 100 ? Post stairs. SPO2 82%, HR 101 initially on sitting recovering to >90% on 3-5 mins ROM: Right Upper Extremity: Grossly WFL. Left Upper Extremity:? Grossly WFL. Right Lower Extremity: Grossly WFL. Left Lower Extremity: Grossly WFL. Strength: Right Upper Extremity: Grossly 4/5. Left Upper Extremity: Grossly 4/5. Right Lower Extremity: Grossly 4/5. Left Lower Extremity: Grossly 4/5. Bed Mobility/Transfers: Bed mobility not assessed Sit to stand with supervision w/1UE support Stand to sit supervision Reclining chair to bed with supervision w/1UE support on IV pole Gait: Instructed patient with level surface ambulation of 55 feet requiring supervision assist and one UE support from IV pole. Pt needed multiple standing rests during ambulation. Maye decreased. Step height decreased. Step length decreased. Stairs: Pt ambulated 2 6inch steps and 3 4inch steps while holding on to both side railings CGA reciprocal. Balance: Static Sitting: good Dynamic Sitting: good Static Standing: fair Dynamic Standing: good w/one UE support Special Tests: Mobility Limitations Standardized Measure [facility] AM-PAC 6 clicks Basic Mobility Inpatient Short Form: Raw Score: 20? CMS Score: 35.83% deficit? Therapeutic activity [id number]: Pt ambulated 40 feet supervision w right UE support on IV pole. Stairs: Pt ambulated 2 6inche steps and 3 4inch steps while holding on to both side railings CGA Pt provided verbal cueing for proper breathing technique for when the pt had dyspnea including PLB, deep breathing, diaphragmatic. Pt requires cues and further training. Assessment: Pt was able to ambulate with supervision and one UE support. Pt needed multiple rest breaks. Pt denied feeling lightheadedness or dizziness. Pt needed multiple cueing to breath in through her nose and out through her mouth. Pt also needed cueing to slow down her maye as to not exert herself. Pt generalized weakness, decreased activity tolerance and increased dyspnea with activity has limited her in her ambulation, and activities of daily functions. Pt would benefit from respiratory therapy and physical therapy to help address her deficits. Patient presents with clinical signs and symptoms consistent with current/admitting diagnoses that have resulted to mobility limitations, gait instability, generalized weakness, and overall ADL decline as demonstrated by the following impairment level findings: 1.? Decreased strength to both LE 2.? Impaired sitting/standing balance 3.? Impaired activity tolerance 4.? Decreased motor recruitment? 5.? Shortness of breath/ poor breath control techniques 6.? Stiffness right knee Impairments are contributing to the following functional limitations: 1.? Decline in transfer skills 2.? Difficulty with ambulation without assistive device and physical assistance 3.? Increased completion time for mobility ADL performance 4.? Increased risk for falls 5.? Difficulty with managing steps alone safely Patient is assessed as a Low complexity based on the following: History: 89-year-old female with past medical history as indicated above Examination: Demonstrable impairment in strength, balance, and mobility level with underlying impairments and functional limitations as exhibited above as well as deficit score of 35.8% utilizing the [facility] Mobility Inpatient Short Form Presentation: evolving Decision Making: Low complexity Goals: Goals X1 week 1. Supine-Sit independent 2. Sit-Supine independent 3. Sit-Stand independent 4. Stand-Sit independent with single point cane 5. Bed-Chair independent with single point cane 6. Chair-Bed independent with single point cane 7. Independent gait on level surface with use of single point cane for at least 200 feet without report of pain nor dyspnea 8. Independent stair negotiation while holding onto one rail for at least 4 steps without report of pain nor dyspnea 9. Independent with home exercise program Plan of Care/Treatment Plan: 1-2x/day, 7 days/week x 1 week. Plan of care has been reviewed with the UNIT NURSE providing the service under Physical Therapy direction. Initiate Physical Therapy intervention for pain management as needed, strengthening, bed mobility, transfers, gait, stairs, balance training, and use of assistive device. DISCHARGE RECOMMENDATIONS: Home with HHPT with [facility] program vs Pulmonary Rehab program TREATMENT CODE/TIME: 49223,23366/9:25-9:58 Thank you for the opportunity to participate in the care of this patient. Written by: Bryant Plummer DPTS Supervised by: [facility] [place], [place]
--- NOTE | 2025-06-20 11:02 | PGE_ITS ---
Date of Service Date of service: 06/20/25 Time of Service: 11:03 Assessment and Plan Assessment and plan (1) Severe sepsis: Status: Acute Assessment and plan: -patient met criteria for severe sepsis with WBC 15.7, HR 95, RR 27, CAP as source of infection and seen on chest CT, initial LA of 3.6 (repeat LA 2.7) -was started on CTX and azithro, will continue -had also been given IV methylpred and continued on PO 40mg prednisone BID which has since been discontinued -f/u blood culture results -of note, failed outpatient therapy with doxy prior to admission (2) Pneumonia: Status: Acute Assessment and plan: -source of infection as noted above (3) Acute hypoxemic respiratory failure: Status: Acute Assessment and plan: -secondary to severe sepsis CAP as noted above -required up to 2L NC, now on RA -wean O2 as tolerated (4) Transaminitis: Status: Acute Assessment and plan: -very mild increase, >2x upper limit normal -downtrending as of AM 06/20 (5) Hypertension: Status: Chronic Assessment and plan: -does not take home medications as prescribed -amlodipine and lisinopril have been restarted (6) Hypokalemia: Status: Acute Assessment and plan: -resolved s/p replacement (7) Hyponatremia: Status: Acute Assessment and plan: -mild, asymptomatic, likely secondary to mild SIAHD in the setting of CAP -improved as of AM 06/20 up to 131 Subjective Subjective Interval history since last seen: Patient states that she is feeling better, though she still has some mild wheeze and feels congested. Otherwise she has no other complaints or concerns at this time. Exam Narrative Exam Narrative: Well-appearing older female sitting up in the chair no acute distress, ANO x 4, heart regular rhythm, lungs with mild end expiratory wheezing heard throughout, abdomen soft, nontender, nondistended Objective Last Vital Signs Temp 98.2 F 06/20/25 10:57 Pulse 89 06/20/25 10:57 Resp 19 06/20/25 10:57 BP 180/74 H 06/20/25 10:57 Pulse Ox 90 L 06/20/25 10:57 Laboratory Results - last 24 hr 06/19/25 06/19/25 06/19/25 16:15 16:23 16:52 WBC 15.74 H RBC 5.49 H Hgb 15.1 Hct 44.5 MCV 81 MCH 27.5 MCHC 33.9 RDW 14.9 H Plt Count 301 MPV 9.5 Immature Gran % 1.6 Neutrophils % 78.5 Lymphocytes % 12.2 Monocytes % 7.3 Eosinophils % 0.1 Basophils % 0.3 Nucleated RBC % 0.0 Absolute Neutrophils 12.36 H Absolute Lymphocytes 1.92 Absolute Monocytes 1.15 H Absolute Eosinophils 0.02 Absolute Basophils 0.05 D-Dimer 840 H VBG pH 7.45 H VBG pCO2 43 VBG pO2 29 VBG HCO3 30 H VBG Total CO2 26 VBG O2 Saturation 60 VBG Base Excess 6 H VBG Lactate 2.0 Sodium 127 L Potassium 3.0 L Chloride 90 L Carbon Dioxide 27.8 Anion Gap 8.8 BUN 20 Creatinine 0.53 L Est GFR (CKD-EPI 2020) 108.85 Glucose 111 H Calcium 9.2 Total Bilirubin 1.40 H AST 43 H ALT 66 H Alkaline Phosphatase 447 H Troponin I 7 NT-Pro-B Natriuret Pep 1595 H Total Protein 7.0 Albumin 4.3 Urine Color Yellow Urine Clarity Clear Urine pH 6.0 Ur Specific [place] 1.025 Urine Protein 100 H Urine Ketones Negative Urine Blood Trace-intact H Urine Nitrite Negative Urine Bilirubin Negative Urine Urobilinogen 1.0 H Ur Leukocyte Esterase Negative Urine RBC 3-5 H Urine WBC 3-5 Ur Epithelial Cells Many Urine Crystals Negative Urine Bacteria Negative Urine Mucus Heavy Urine Other Rare Yeast Ur Culture Indicated? No Urine Glucose Negative COVID-19 Source Nasopharynx SARS-CoV-2 (PCR) Negative Influenza Type A (PCR) Negative Influenza Type B (PCR) Negative RSV (PCR) Negative MRSA (TEM-PCR) 06/19/25 06/19/25 06/19/25 17:30 20:20 23:00 WBC RBC Hgb Hct MCV MCH MCHC RDW Plt Count MPV Immature Gran % Neutrophils % Lymphocytes % Monocytes % Eosinophils % Basophils % Nucleated RBC % Absolute Neutrophils Absolute Lymphocytes Absolute Monocytes Absolute Eosinophils Absolute Basophils D-Dimer VBG pH VBG pCO2 VBG pO2 VBG HCO3 VBG Total CO2 VBG O2 Saturation VBG Base Excess VBG Lactate 3.6 H* Sodium Potassium Chloride Carbon Dioxide Anion Gap BUN Creatinine Est GFR (CKD-EPI 2020) Glucose Calcium Total Bilirubin AST ALT Alkaline Phosphatase Troponin I 6 NT-Pro-B Natriuret Pep Total Protein Albumin Urine Color Urine Clarity Urine pH Ur Specific [place] Urine Protein Urine Ketones Urine Blood Urine Nitrite Urine Bilirubin Urine Urobilinogen Ur Leukocyte Esterase Urine RBC Urine WBC Ur Epithelial Cells Urine Crystals Urine Bacteria Urine Mucus Urine Other Ur Culture Indicated? Urine Glucose COVID-19 Source SARS-CoV-2 (PCR) Influenza Type A (PCR) Influenza Type B (PCR) RSV (PCR) MRSA (TEM-PCR) Negative 06/20/25 06/20/25 02:00 06:04 WBC 12.56 H RBC 4.97 Hgb 14.0 Hct 41.0 MCV 83 MCH 28.2 MCHC 34.1 RDW 15.2 H Plt Count 249 MPV 9.7 Immature Gran % 1.6 Neutrophils % 83.1 Lymphocytes % 8.3 Monocytes % 6.8 Eosinophils % 0.0 Basophils % 0.2 Nucleated RBC % 0.0 Absolute Neutrophils 10.44 H Absolute Lymphocytes 1.04 L Absolute Monocytes 0.85 H Absolute Eosinophils 0.00 Absolute Basophils 0.03 D-Dimer VBG pH VBG pCO2 VBG pO2 VBG HCO3 VBG Total CO2 VBG O2 Saturation VBG Base Excess VBG Lactate 2.7 H* Sodium 131 L Potassium 4.3 D Chloride 99 Carbon Dioxide 24.2 Anion Gap 8.2 BUN 16 Creatinine 0.44 L Est GFR (CKD-EPI 2020) 134.93 Glucose 123 H Calcium 8.9 Total Bilirubin 0.90 AST 37 H ALT 60 H Alkaline Phosphatase 376 H Troponin I NT-Pro-B Natriuret Pep Total Protein 6.1 Albumin 3.7 Urine Color Urine Clarity Urine pH Ur Specific [place] Urine Protein Urine Ketones Urine Blood Urine Nitrite Urine Bilirubin Urine Urobilinogen Ur Leukocyte Esterase Urine RBC Urine WBC Ur Epithelial Cells Urine Crystals Urine Bacteria Urine Mucus Urine Other Ur Culture Indicated? Urine Glucose COVID-19 Source SARS-CoV-2 (PCR) Influenza Type A (PCR) Influenza Type B (PCR) RSV (PCR) MRSA (TEM-PCR) PAWSS Have you Been Recently Intoxicated or Drunk Within the Last 30 days?: No Have you Ever Experienced Previous Episodes of Alcohol Withdrawal?: No Have you ever Experienced Withdrawal Seizures?: No Have you ever Experienced Delirium Tremens(DT)s?: No Have you ever undergone Alcohol Rehabilitation Treatment (i.e, inpt ot outpatient treatment programs)?: No Have you ever Experienced Blackouts?: No Have you ever Combined Alcohol with other Downers within the last 90 days?: No Have you ever Combined Alcohol with any other Substance of Abuse during the last 90 days?: No Positive Blood Alcohol level on Presentation? [PCS.BAL]: No Evidence of Increased Autonomic Activity (i.e. HR>120, tremor, sweating, agitation, nausea)?: No Result: 0 Time Spent with Patient Time Spent with Patient: >50 minutes Time was spent: preparing to see the patient(eg.review tests), obtaining and/or reviewing separately otained hiistory, ordering medications,tests, procedures, referring, communicating with other health personal care assistant, indepentently interpreting results, counseling the patient and care coordination
--- NOTE | 2025-06-20 12:02 | W.NUTRFU ---
Documented by User: Sourav Blancas 06/20/25 13:16 Date of service: 06/20/25 Time of Service: 11:45 Nutrition Note NOTE: 89, F. Height: 155 cm. Weight: 55.8 kg. BMI: 23.2 kg/m^2. IBW: 47.8 kg. The patient was admitted within the last 24hrs due to respiratory complications. At home, the patient reports being very conscious of her nutrition and eating habits - she reports that she cooks all of her own meals (3 per day), of which lunch is the largest, because she does not like going to sleep on a heavy stomach. The patient displays a weight loss of about 22 kg from 01/2022 to 05/2025 from 78 kg to 56 kg. The patient reports that this weight loss was intentional, because she gained weight prior to a double hip replacement surgery because of a lack of mobility. After the surgery, she was able to resume exercise and lose the excess weight. She continues to exercise, reportedly gardening, mowing the lawn, and weed-whacking for exercise. The patient reports that meals have been very good at the hospital; meal consumption remains at 100%, with the exception of one muffin at breakfast that was too dry for her irritated airway. The patient declined any changes to her meal orders, and declined any supplements. The patient reported no issues related to chewing, swallowing, or bowel movements. No NFPE was performed, but the patient appears energetic well-nourished, and with a BMI of 23.2 at age 89, no concerns stand out. There will be no nutritional intervention or diagnosis. Reccomend to re-visit during stay to ensure maintained satisfaction with meals and weight. Time Spent in Nutritional Counseling and Treatment: 10 Documented by User: Ramesh Hager RDN 06/20/25 13:16 Nutrition Note NOTE: 89, F. Height: 155 cm. Weight: 55.8 kg. BMI: 23.2 kg/m^2. IBW: 47.8 kg. The patient was admitted within the last 24hrs due to respiratory complications. At home, the patient reports being very conscious of her nutrition and eating habits - she reports that she cooks all of her own meals (3 per day), of which lunch is the largest, because she does not like going to sleep on a heavy stomach. The patient displays a weight loss of about 22 kg from 01/2022 to 05/2025 from 78 kg to 56 kg. The patient reports that this weight loss was intentional, because she gained weight prior to a double hip replacement surgery because of a lack of mobility. After the surgery, she was able to resume exercise and lose the excess weight. She continues to exercise, reportedly gardening, mowing the lawn, and weed-whacking for exercise. The patient reports that meals have been very good at the hospital; meal consumption remains at 100%, with the exception of one muffin at breakfast that was too dry for her irritated airway. The patient declined any changes to her meal orders, and declined any supplements. The patient reported no issues related to chewing, swallowing, or bowel movements. No NFPE was performed, but the patient appears energetic well-nourished, and with a BMI of 23.2 at age 89, no concerns stand out. There will be no nutritional intervention or diagnosis at this time. Will plan on a follow up during stay to ensure maintained satisfaction with meals and weight. Will continue to monitor nutrition-related labs, weight, intake and food preferences.
[2025-06-20] MEDS: Lisinopril 20 MG TAB 40 MG PO (14:35)
--- NOTE | 2025-06-20 14:48 | PTTR_ITS ---
PT Notes Visit Reasons: Pneumonia Inpatient Physical Therapy Treatment Note [facility] Date: 06/20/2025 PRECAUTIONS: SUBJECTIVE: Pt reported she felt well and eager to get up and walk. OBJECTIVE: ? ? ? General observation: Pt presented in recliner with legs down blanket off talking with daughter. No SOB or dsypnea noted? PAIN: no pain reported VITALS: SPO2 Post ambulation 1 (Finger): SPO2 79% SPO2: Post ambulation 1 (Earlobe): SPO2 82% SPO2: Post ambulation 2 (Finger): SPO2 81% SPO2: Post ambulation 2 (Earlobe): SPO2 83% Therapeutic Activities ([id number]): Direct one-on-one instruction in dynamic activities to improve functional performance. ? BED MOBILITY/TRANSFERS? Sit-stand: supervision with single point cane ? Stand-sit: supervision with single point cane? Ambulation: Pt ambulated 150 feet CGA with single point cane with SBA of one following behind with wheelchair. Pt needed multiple (3) seated rest throughout the session ? Provided skilled cues and instruction on performance and technique throughout. ASSESSMENT: Pt was able to ambulate 150 feet CGA with single point cane with SBA of one following behind with wheelchair. Pt looked and felt steadier with the single point cane compared to the IV pole. Pt reported hoping to be able to ambulate without an AD in the future. Pt needed verbal cueing to remember to breath in through the nose and out through the mouth. Pt needed verbal cueing to slow down her walking speed to reduce her workload for her pulmonary system. Pt remembered pursed lip breathing and was able to initiate it during the second rest period without cueing from PT. Pt SPO2 was monitored throughout ambulation. Readings may not have been accurate as pt hands were cold, and when taking SPO2 from earlobe. Perfusion wasn?t optimal. With that being said. Pt SPO2 did drop significantly during ambulation, and would take a couple minutes to return to 88-92% once the pt sat down to rest. Pt continues to have reduced activity tolerance. Next session, during ambulation PT will provide oxygen for pt. to reduce work of breathing and increase functional activity tolerance. This will help determine if pt needs O2 during activity. ?PLAN: 1-2x/day, 7 days/week x 1 week. Plan of care has been reviewed with the RESPIRATORY CARE INSTRUCTOR providing the service under Physical Therapy direction. Initiate Physical Therapy intervention for pain management as needed, strengthening, bed mobility, transfers, gait, balance training, and use of assistive device ?TREATMENT CODE/TIME: 39961/2:00-2:30pm DISCHARGE RECOMMENDATION: HHPT with better breathers vs pulmonary therapy Written by: Bryant Plummer DPTS Supervised by: Carin Landry, PT
--- NOTE | 2025-06-20 15:20 | PHACLINREV_ITS ---
Pharmacy Admission Review Admission Clinical Review Admission Pharmacy Review: Acute hypoxemic respiratory failure (Acute) Severe sepsis (Acute) Hematuria (Acute) Elevated brain natriuretic peptide (BNP) level (Acute) Transaminitis (Acute) Hyponatremia (Acute) Hypokalemia (Acute) Pneumonia (Acute) Sepsis (Acute) simvastatin Allergy (Mild, Verified 06/19/25 16:02) Unknown Fish Containing Products Allergy (Unknown, Unverified 06/20/25 15:00) Unknown shellfish derived Allergy (Unknown, Unverified 06/20/25 15:00) Unknown adhesive tape Adverse Reaction (Severe, Verified 06/19/25 16:02) rash environmental Allergy (Uncoded 06/19/25 16:02) Skin Rash Resuscitation Status DNR/DNI Height 5 ft 1 in Weight 55.792 kg Pharmacy Admission Review Renal Dosing Renal Dosing: BUN 16 mg/dL (9-23) 06/20/25 06:04 Creatinine 0.44 mg/dL (0.55-1.02) L 06/20/25 06:04 Medications needing adjustments: Reviewed (No dosage adjustment necessary at this time. Patient on oral potassium, use with caution since Crcl < 60ml/min and monitor potassium levels frequently to avoid overcorrection) Anticoagulation Anticoagulation: Hgb 14.0 g/dL (11.2-15.7) 06/20/25 06:04 Hct 41.0 % (36.0-46.0) 06/20/25 06:04 Plt Count 249 10^3/uL (130-400) 06/20/25 06:04 Creatinine 0.44 mg/dL (0.55-1.02) L 06/20/25 06:04 DVT Prophylaxis: Reviewed Medications: Enoxaparin Relevant Labs Relevant Labs: Sodium 131 mmol/L (136-145) L 06/20/25 06:04 Potassium 4.3 mmol/L (3.5-5.1) D 06/20/25 06:04 Chloride 99 mmol/L (98-107) 06/20/25 06:04 Electrolytes, C-Reactive P, ESR: Reviewed (Sodium is currently low and being replenished) DM Control DM Control: Reviewed (No record of DM reported in patient's H&P) Cardiac Review Cardiac Review: Blood Pressure 167/75 Blood Pressure 180/74 Blood Pressure 158/69 Blood Pressure 200/100 Blood Pressure 187/80 Troponin I 6 ng/L (<35) 06/19/25 17:30 NT-Pro-B Natriuret Pep 1595 pg/mL (<300) H 06/19/25 16:15 BP, HR, EF%: Intervened (Home medication Lisinopril was ordered at 60mg daily but updated to 40mg daily per consult with provider since max daily dosing is 40mg) QTc Review QTc: Reviewed (Patient's QTc reported via EKG on 06/19/25 was 431. Patient has a ctive order for azithromycin but QT not prolonged, so no interventions needed at this time) Home Meds Home Med List reviewed: Reviewed (All relevant home medications have been ordered) Current Meds Current Medication Order Review: Reviewed Pharmacy Antibiotic Review Relevant Labs: Patient on empiric combination regimen of ceftriaxone and azithromycin for CAP pending blood culture results for sepsis, source of infection
[2025-06-20 17:23] LABS: Legionella Ag Detection Urine Negative (Negative)
[2025-06-20] MEDS: cefTRIAXone 2 GM/50 ML BAG IVPB (18:15)
[2025-06-20] MEDS: Enoxaparin 40 MG/0.4 ML SYR SC (20:29)
[2025-06-20] MEDS: AZITHROMYCIN 500 MG in Normal Saline 250 ML 250 MG IVPB (20:30)
[2025-06-21] VITALS (22 sets, daily range): BP systolic 136–195; BP diastolic 92–113; PULSE 80–142; RESP 16–20; TEMP 36.5–37.1; O2SAT 82–96
--- NOTE | 2025-06-21 | DI.RAD_ITS ---
Exam(s) XR PORTABLE CHEST AP EXAM: XR PORTABLE CHEST AP CLINICAL HISTORY: worsening shortness of breath TECHNIQUE: 2D digital imaging was performed. COMPARISON: CR,XR XR PORTABLE CHEST AP from 06/19/2025 FINDINGS: LUNGS: A small right pleural effusion is unchanged. There are again abnormal increased interstitial markings which in part appear chronic. There is interval worsening of bilateral upper lobe opacities compared with the previous exam. Bowl are noted at the left lung base. HEART: Normal size. AORTA: Normal diameter. Calcified. BONES: Unremarkable for age. Soft tissues: Unremarkable. IMPRESSION: Interval worsening of bilateral pulmonary infiltrates. Stable small right pleural effusion. DATA REPOSITORY: RADIATION DOSE DELIVERED:
--- NOTE | 2025-06-21 | DI.CT_ITS ---
Exam(s) CT CHEST WO EXAM: CT CHEST WO CLINICAL HISTORY: query ILD vs consolidation TECHNIQUE: Imaging Protocol: Axial computed tomography images with coronal and sagittal reformatted images were created and reviewed. Computer aided detection (CAD) was utilized. CONTRAST MATERIAL: Noncontrast COMPARISON: CR,XR XR PORTABLE CHEST AP from 06/19/2025 CR XR PORTABLE CHEST AP from 06/21/[address] prior CT examinations or relevant history. FINDINGS: Pulmonary parenchyma: There are underlying [id number] emphysematous changes greater in the upper lobes. There is consolidation involving a large portion the left lower lobe which extends beyond the major fissure into the left upper lobe. There is some air bubbles which may indicate necrosis. There is significant abnormal interstitial thickening involving a large portion of the left upper lobe with sparing at the apex. There all other superimposed scattered patchy focal infiltrates in the left upper lobe as well as in the right upper and lower lobes. The largest lesion appears of more soft tissue density which is located in the medial right upper lobe adjacent to the trachea measuring 18 millimeters. Tracheobronchial tree: No bronchiectasis or mucous plugging. Mediastinum and Jane: There are multiple abnormally enlarged lymph nodes in the anterior mediastinum, right paratracheal and subcarinal regions. Largest node is in the right paratracheal region measuring 2.5 cm. Pleura: There are small bilateral pleural effusions. There is loculation dilation anteriorly at the level of the right middle lobe. No pneumothorax. Heart: The heart is moderately dilated. Moderate to severe coronary artery calcifications are seen. Aorta: Thoracic aorta non-dilated. Moderate to severe atherosclerotic changes. Pulmonary arteries: No gross evidence of emboli. Upper abdomen: No acute findings. Bones: Degenerative changes in the spine. No lytic or blastic lesions. Soft tissues: Unremarkable. IMPRESSION: Severe consolidation noted at the left lower lobe. There are some air bubbles which could indicate necrosis. Multifocal areas of abnormal patchy opacities in both lungs. Abnormally increased interlobular septal thickening greater in the left upper lobe. Small bilateral pleural effusions which appear loculated. Abnormally enlarged mediastinal adenopathy. The findings may be secondary to infection however given the extent of findings malignancy is not excluded. RADIATION DOSE DELIVERED: Total DLP DATA REPOSITORY: All CT scans at this facility are submitted to the National Radiology Data Registry (NRDR) Dose Index Registry (DIR) with the [employer] (ACR). RADIATION OPTIMIZATION: All CT scans at this facility use at least one of these dose optimization techniques: automated exposure control; mA and/or kV adjustment per patient size (includes targeted exams where dose is matched to clinical indication); or iterative reconstruction.
[2025-06-21] MEDS: Albuterol/Ipratropium 3 ML UPD VIAL UPD ×4 (00:41→20:45)
[2025-06-21] MEDS: Albuterol 2.5 MG/3 ML INH SOLN VIAL UPD (05:15)
[2025-06-21] MEDS: Normal Saline Flush 10 ML SYR IVP ×3 (06:12→19:55)
[2025-06-21] MEDS: Furosemide 20 MG/2 ML VIAL IVP ×3 (06:12→14:34)
[2025-06-21 06:32] LABS: HCT 42.0 % (36.0-46.0); HGB 14.0 g/dL (11.2-15.7); MCH 27.6 pg (27.0-33.0); MCHC 33.3 % (32.0-36.0); MCV 83 fL (80-95); MPV 10.2 fL (8.0-11.0); Platelet Count 274 10^3/uL (130-400); RBC 5.07 10^6/uL (3.93-5.22); RDW 15.7 % (11.7-14.6); RDW-SD 47.4 fL; WBC 19.34 10^3/uL (4.4-10.8)
[2025-06-21 06:48] LABS: Anion Gap 5.9 mmol/L (3-11); BUN 19 mg/dL (9-23); CO2 23.1 mmol/L (20.0-31.0); Calcium 9.1 mg/dL (8.3-10.6); Chloride 100 mmol/L (98-107); Glucose 118 mg/dL (74-106); Potassium 4.1 mmol/L (3.5-5.1); Sodium 129 mmol/L (136-145)
--- NOTE | 2025-06-21 07:47 | PDOC.CMDIS ---
Date of service: 06/21/25 Time of Service: 07:47 LACE Index Scoring Tool Questions: Length of Stay (in days): 2 Was the patient admitted via the E.D.?: Yes Comorbidities: Liver or Renal Disease E.D. Visits: 1 Answers: Total Score: 11 Risk of Readmission: High Risk Care Management Discharge Plan Reason for Hospitalization: pneumonia Discharge Plan: Lorraine will be discharged home, with new HH RN, and PT to access for better breathers program. It is recommended she follow up with her community providers, pulmonary rehab and discharge plan of care. She will transport home via private vehicle by family. Patient/Family Education Needs: Review discharge instructions, activity, limitations, and plan of care. Discuss ask me three. SDOH Health Related Social Needs: Health related social needs risk of homeless Health related social needs details living in a house with her . Health related social needs details: living in a house with her .
[2025-06-21] MEDS: Potassium Chloride 10 MEQ CAPCR 40 MEQ PO ×2 (08:40→19:54)
[2025-06-21] MEDS: Lisinopril 20 MG TAB 40 MG PO (08:42)
[2025-06-21] MEDS: amLODIPine 5 MG TAB PO (08:42)
[2025-06-21] MEDS: guaiFENesin 600 MG TABCR PO ×2 (08:42→19:54)
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
--- NOTE | 2025-06-21 16:05 | PT.INNT ---
PT Notes Visit Reasons: Pneumonia Pt was approached twice this afternoon, first pt was on the commode after receiving a dose of Lasix, pt in bed on second approach with pt having sa02 at 88% on 3L 02 support NC at rest, pt very apologetic and politely refused participating with therapy intervention since she feels very weak from having difficulty breathing and side effect of Lasix.
--- NOTE | 2025-06-21 16:28 | PGE_ITS ---
Date of Service Date of service: 06/21/25 Time of Service: 08:00 Assessment and Plan Assessment and plan (1) Severe sepsis: Status: Resolved Assessment and plan: -patient met criteria for severe sepsis with WBC 15.7, HR 95, RR 27, CAP as source of infection and seen on chest CT, initial LA of 3.6 (repeat LA 2.7) -was started on CTX and azithro, will continue -had also been given IV methylpred and continued on PO 40mg prednisone BID which has since been discontinued -f/u blood culture results -of note, failed outpatient therapy with doxy prior to admission Jun 21: leukocytosis increased today, increased O2 demand, elevated BP. Afebrile. No longer septic. (2) Pneumonia: Status: Acute Assessment and plan: Worsening hypoxemia and leukocytosis, patient not feeling any better Added vancomycin for possible MRSA superinfection given failure of outpatient treatment CT chest, consider underlying ILD (3) Acute hypoxemic respiratory failure: Status: Acute Assessment and plan: As above, worsening hypoxemia Not on home O2 Increasing treatment for infection, CT to evaluate for ILD (4) Transaminitis: Status: Acute Assessment and plan: -very mild increase, >2x upper limit normal -downtrending as of AM 06/20 (5) Hypertension: Status: Chronic Assessment and plan: -does not take home medications as prescribed -amlodipine and lisinopril have been restarted (6) Hypokalemia: Status: Acute Assessment and plan: -resolved s/p replacement (7) Hyponatremia: Status: Acute Assessment and plan: -mild, asymptomatic, likely secondary to mild SIAHD in the setting of CAP -improved as of AM 06/20 up to 131 Subjective Subjective Interval history since last seen: Ms. Bernal is needing 4-5L O2 today and she does not feel well. Exam Narrative Exam Narrative: General: This is a pleasant woman in no distress HEENT: Normocephalic, atraumatic CV: RRR Resp: Diminished breath sounds bilaterally with soft expiratory wheeze, good movement of air without increased work of breathing on NC4L Abd: soft, NTND MSK: voluntary motion x4 Neuro: awake, alert, no focal deficits Objective Last Vital Signs Temp 36.5 C 06/21/25 16:07 Pulse 80 06/21/25 16:07 Resp 16 06/21/25 16:07 BP 166/99 H 06/21/25 16:07 Pulse Ox 92 06/21/25 16:26 Laboratory Results - last 24 hr 06/19/25 06/21/25 21:40 06:00 WBC 19.34 H RBC 5.07 Hgb 14.0 Hct 42.0 MCV 83 MCH 27.6 MCHC 33.3 RDW 15.7 H Plt Count 274 MPV 10.2 Sodium 129 L Potassium 4.1 Chloride 100 Carbon Dioxide 23.1 Anion Gap 5.9 BUN 19 Creatinine 0.52 L Est GFR (CKD-EPI 2020) 111.27 Glucose 118 H Calcium 9.1 Urine Legionella Ag Negative PAWSS Have you Been Recently Intoxicated or Drunk Within the Last 30 days?: No Have you Ever Experienced Previous Episodes of Alcohol Withdrawal?: No Have you ever Experienced Withdrawal Seizures?: No Have you ever Experienced Delirium Tremens(DT)s?: No Have you ever undergone Alcohol Rehabilitation Treatment (i.e, inpt ot outpatient treatment programs)?: No Have you ever Experienced Blackouts?: No Have you ever Combined Alcohol with other Downers within the last 90 days?: No Have you ever Combined Alcohol with any other Substance of Abuse during the last 90 days?: No Positive Blood Alcohol level on Presentation? [PCS.BAL]: No Evidence of Increased Autonomic Activity (i.e. HR>120, tremor, sweating, agitation, nausea)?: No Result: 0 VTE Prohylaxis Risk Level: Moderate/High Risk Contraindications: None Prophylaxis: Pharmacologic Time Spent with Patient Time Spent with Patient: 25-34 minutes Time was spent: preparing to see the patient(eg.review tests), obtaining and/or reviewing separately otained hiistory, ordering medications,tests, procedures, referring, communicating with other health residential care officer, indepentently interpreting results, counseling the patient and care coordination
[2025-06-21] MEDS: predniSONE 20 MG TAB 40 MG PO (16:39)
[2025-06-21] MEDS: cefTRIAXone 2 GM/50 ML BAG IVPB (17:31)
[2025-06-21] MEDS: VANCOMYCIN/WATER (PEG) 1.25 GM/250 ML BAG IVPB (18:39)
[2025-06-21] MEDS: Enoxaparin 40 MG/0.4 ML SYR SC (19:54)
[2025-06-21] MEDS: [UNRECOGNIZED DRUG - OTHER] PO (20:10)
[2025-06-21] MEDS: VITAMINS A C E ZINC COPPER PO (20:10)
[2025-06-21] MEDS: AZITHROMYCIN 500 MG in Normal Saline 250 ML 250 MG IVPB (20:40)
[2025-06-22] VITALS (17 sets, daily range): BP systolic 151–191; BP diastolic 86–106; PULSE 59–98; RESP 16–20; TEMP 36.2–36.8; O2SAT 86–96
[2025-06-22] MEDS: Albuterol/Ipratropium 3 ML UPD VIAL UPD ×4 (02:15→20:15)
[2025-06-22 02:19] LABS: Vancomycin, Random 12.3 ug/mL
[2025-06-22] MEDS: predniSONE 20 MG TAB 40 MG PO (07:41)
[2025-06-22] MEDS: Potassium Chloride 10 MEQ CAPCR 40 MEQ PO ×2 (07:41→19:31)
[2025-06-22] MEDS: guaiFENesin 600 MG TABCR PO ×2 (07:41→19:31)
[2025-06-22] MEDS: amLODIPine 5 MG TAB PO (07:41)
[2025-06-22] MEDS: Lisinopril 20 MG TAB 40 MG PO (07:42)
[2025-06-22] MEDS: Normal Saline Flush 10 ML SYR IVP ×4 (07:42→19:32)
--- NOTE | 2025-06-22 08:44 | W.PULMCON ---
General Date Of Service Date of service: 06/22/25 Time of Service: 09:00 Requesting physician: Nayan Galindo Reason for Consult: Hypoxia Recommendations: Assessment: 1. Acute hypoxemic respiratory failure - due to pneumonia and COPD exacerbation. Currently on 4 L O2 2. Community acquired pneumonia - has structural lung disease, so at risk for MDR 3. COPD exacerbation - significant emphysematous changes on CT imaging. No prior PFT's available 4. Pleural effusions - trace bilateral effusions on CT imaging. POCUS exam today showed no significant effusion on either lung Recommendations: - given rising WBC and worsening hypoxia, recommend changing antibiotoics to vancomycin, zosyn, and azithromycin. This will provide additional anaerobic and anti-pseudomonal coverage, pending her infectious workup - sputum culture - check urine strep ag and mycoplasma IgM - start mucomyst and continue flutter valve to help with airway clearance - titrate oxygen for SpO2 > 90% - continue prednisone 40 mg daily - continue scheduled bronchodilators Discussed with Dr. Galindo Assessment and Plan Assessment and plan (1) COPD exacerbation: Status: Acute (2) Acute hypoxemic respiratory failure: Status: Acute (3) Pneumonia: Status: Acute History of Present Illness Narrative: Patient is an 89 yo with a history of tobacco abuse who was admitted on 06/19 for dyspnea / pneumonia. She reported a several month history of dyspnea. Symptoms significantly worsened last week and she developed a productive cough. She was treated as an outpatient with doxycycline, but continued to worsen so presented to the ED. WBC was elevated. CT chest imaging showed bilateral infiltrates, emphysematous changes, lower lobe consolidation. The left lower lobe consolidation was concerning for necrosis / early pulmonary abscess. Trace bialteral pleural effusions were noted. She denies any prior history of lung disease. She was a smoker (quit in 2008.) Denies any history of autoimmune disease. No history of aspiration or difficulty swallowing. She is currently on 4 L O2. She has been coughing up thick, purulent sputum over the past day. Has dyspnea with exertion, but comfortable at rest. Denied chest pain. ROS: 10 pt ROS negative except as above Fx: mother - COPD Sx: smoked 0.5 ppd x ~20 years. Quit 2008 PFSH All Active Problems (Updated 06/22/25 @ 09:35 by Berlin Hernández MD) COPD exacerbation (Acute) Acute hypoxemic respiratory failure (Acute) Respiratory failure (Acute) Hematuria (Acute) Elevated brain natriuretic peptide (BNP) level (Acute) Transaminitis (Acute) Hyponatremia (Acute) Hypokalemia (Acute) Pneumonia (Acute) Sepsis (Acute) Hypertension (Chronic) Low back pain (Acute) CKD (chronic kidney disease) stage 3, GFR 30-59 ml/min (Acute) Hyperlipidemia (Acute) Macular degeneration of right eye (Acute) Cataracts, bilateral (Acute) Degenerative joint disease of left hip (Acute) Degenerative joint disease of right hip (Acute) Medical History Fecal occult blood test positive Right hip pain Seasonal allergies Eczema Former smoker Surgical History (Updated 03/21/23 @ 10:29 by JIMMIE Manzano) History of bilateral hip arthroplasty (03/19/22) Hx of cataract extraction Social History Smoking/Tobacco Use Status: Former Tobacco Use Quit Date: 07/28/08 Smoking risk assessment performed?: Yes Alcohol Intake: current Alcohol Intake frequency: a few times a week Alcohol type: wine Drug use: Never Substance use type: does not use Housing: house Do you feel safe at home: Yes Do you feel safe in your relationship?: Yes Visit Medication and Allergies Active Medications Generic Name Dose Route Start Last Admin Trade Name Freq PRN Reason Stop Dose Admin Acetaminophen 325 - 650 mg 06/19/25 21:37 Acetaminophen 325 Mg Tab PO Q4H PRN PRN Al Hydrox/Mg Hydrox/Simethicone 30 ml 06/19/25 19:12 Mylanta Suspension 30 Ml Cup PO Q2H PRN PRN Albuterol Sulfate 2.5 mg 06/19/25 19:12 06/21/25 05:15 Albuterol 2.5 Mg/3 Ml Inh Soln Vial UPD 2.5 mg Q2H PRN PRN Administration Albuterol/Ipratropium 3 ml 06/19/25 20:00 06/22/25 07:59 Albuterol/Ipratropium 3 Ml Upd Vial UPD 3 ml Q6H KRISTY Administration Amlodipine Besylate 5 mg 06/20/25 08:30 06/22/25 07:41 Amlodipine 5 Mg Tab PO 5 mg DAILY KRISTY Administration Docusate Sodium 100 mg 06/19/25 19:12 Docusate Sodium 100 Mg Cap PO TID PRN PRN Enoxaparin Sodium 40 mg 06/19/25 20:00 06/21/25 19:54 Enoxaparin 40 Mg/0.4 Ml Syr SC 40 mg Q24H KRISTY Administration Guaifenesin 600 mg 06/20/25 08:30 06/22/25 07:41 Guaifenesin 600 Mg Tabcr PO 600 mg BID KRISTY Administration Ceftriaxone Sodium/Dextrose 2 gm in 50 mls @ 100 mls/hr 06/20/25 18:00 06/21/25 18:37 Rocephin IVPB Infused Q24H KRISTY Infusion Azithromycin 500 mg/ Sodium 250 mls @ 250 mls/hr 06/20/25 20:00 06/21/25 21:53 Chloride IVPB Infused Q24H KRISTY Infusion Vancomycin/PEG/NADA/Lysine/Water 1.5 gm in 300 mls @ 200 mls/hr 06/22/25 16:00 Vancocin Injection IVPB Q24H KRISTY Lisinopril 40 mg 06/20/25 14:00 06/22/25 07:42 Lisinopril 20 Mg Tab PO 40 mg DAILY KRISTY Administration Magnesium Hydroxide 30 ml 06/19/25 19:12 Milk Of Magnesia 30 Ml Cup PO DAILY PRN PRN Pt's Own Vitamins A, 1 each 06/20/25 08:30 06/22/25 07:42 C,[id number] [ PO Not Given Icaps Areds] 14,320- BID KRISTY 226- Polyethylene Glycol 17 gm 06/19/25 19:12 Polyethylene Glycol 3350 17 Gm Packet PO DAILY PRN PRN Constipation Potassium Chloride 40 meq 06/19/25 20:00 06/22/25 07:41 Potassium Chloride 10 Meq Capcr PO 40 meq BID KRISTY Administration Prednisone 40 mg 06/22/25 08:30 06/22/25 07:41 Prednisone 20 Mg Tab PO 06/26/25 12:00 40 mg DAILY KRISTY Administration Sodium Chloride 0 ml 06/19/25 19:06 06/21/25 06:12 Normal Saline Flush 10 Ml Syr IVP 10 ml PRN PRN Administration Sodium Chloride 0 ml 06/19/25 20:00 06/22/25 07:42 Normal Saline Flush 10 Ml Syr IVP 10 ml BID KRISTY Administration Sodium Chloride 0 ml 06/19/25 19:06 Normal Saline 10 Ml Vial IJ DIRECTED PRN Allergies simvastatin Allergy (Mild, Verified 06/19/25 16:02) Unknown Fish Containing Products Allergy (Unknown, Unverified 06/20/25 15:00) Unknown shellfish derived Allergy (Unknown, Unverified 06/20/25 15:00) Unknown adhesive tape Adverse Reaction (Severe, Verified 06/19/25 16:02) rash environmental Allergy (Uncoded 06/19/25 16:02) Skin Rash Exam Narrative Exam Narrative: General: alert, no acute distress Head: normocephalic ENT: no stridor, trachea midline CV: normal rate, regular rhythm Respiratory: bilateral wheezing, no crackles, bilateral rhonchi, + prolonged expiration GI: abd soft, non-tender, non-distended Skin: no rashes Extremities: trace edema, no digital clubbing Psych: normal affect Results Last Vital Signs Temp 36.5 C 06/22/25 07:55 Pulse 66 06/22/25 08:05 Resp 19 06/22/25 08:05 BP 176/102 H 06/22/25 08:24 Pulse Ox 93 06/22/25 08:06 Labs 06/21/25 06:00 06/21/25 06:00 Labs: Laboratory Results - last 24 hr 06/22/25 02:00 Random Vancomycin 12.[address] scan - chest: report reviewed and image reviewed POCUS Pulmonology Limited thoracic lung Exam DATE OF EXAM: 06/22/25 TIME OF EXAM: 09:00 PROVIDER THAT PERFORMED THE STUDY: Berlin Hernández IS THIS A REPEAT STUDY: No REASON FOR EXAM: Pleural Effusion Visualized structures: right lateral, left lateral, right posterior and left posterior PERTINENT FINDINGS/IMPRESSION: Present Other (no pleural effusion) impression: No significant pleural effusion seen on either side Exam complete
--- NOTE | 2025-06-22 08:45 | CHAPLAIN ---
Lorraine was sitting at the edge of the bed and visiting with her daughter when I stopped in. They were both pleasant and engaged in a short conversation. Lorraine seems to be well supported by family according to Care Management notes. I explained my role and offered support.
[2025-06-22 09:52] LABS: Abs Immature Grans 0.21 10^3/uL (0.0-0.06); HCT 38.6 % (36.0-46.0); HGB 12.8 g/dL (11.2-15.7); Immature Grans % 1.3 %; MCH 27.5 pg (27.0-33.0); MCHC 33.2 % (32.0-36.0); MCV 83 fL (80-95); MPV 10.8 fL (8.0-11.0); Platelet Count 253 10^3/uL (130-400); RBC 4.66 10^6/uL (3.93-5.22); RDW 16.0 % (11.7-14.6); RDW-SD 48.5 fL; WBC 16.71 10^3/uL (4.4-10.8)
[2025-06-22 10:05] LABS: Magnesium 2.0 mg/dL (1.6-2.6)
[2025-06-22 10:07] LABS: ALT 63 U/L (10-49); AST 48 U/L (<34); Albumin 3.9 g/dL (3.2-5.0); Alkaline Phosphatase 361 U/L (46-116); Anion Gap 6.7 mmol/L (3-11); BUN 19 mg/dL (9-23); Bilirubin, Total 1.00 mg/dL (0.2-1.2); CO2 23.3 mmol/L (20.0-31.0); Calcium 9.3 mg/dL (8.3-10.6); Chloride 100 mmol/L (98-107); Glucose 132 mg/dL (74-106); Potassium 3.9 mmol/L (3.5-5.1); Sodium 130 mmol/L (136-145); Total Protein 6.6 g/dL (5.7-8.2)
--- NOTE | 2025-06-22 10:58 | PT.INTREAT ---
PT Notes Visit Reasons: Pneumonia Inpatient Physical Therapy Treatment Note [facility] Date: 06/22/2025 PRECAUTIONS: Standard, Activity as tolerated, SPO2 88%-92% SUBJECTIVE: AM Session:Pt felt well, much better than yesterday. Pt reported her feet had an allergic reaction to the hospital socks. Pt reported the swelling has gone down and they aren?t as red as what they were earlier. Pt reported needed her call button when pulmonary left as they did not leave it with her. PM Session: Pt reported she is eager to walk stating her legs need to move but she needed the bathroom first. IV Abx infusing OBJECTIVE: AM Session:Pt was sitting at EOB having blood draw and had just finished breakfast. Pt feet were moderately swollen. ? PM Session: Pt seated in chair Oxygen at 4L/min via NC PAIN: no pain reported VITALS: AM Session: were taken with hands covered with a warm blanket to allow optimal perfusion, as before we started without the warm blanket SPO2 was about 79% on 4 L of O2 via NC Pre-Treatment: ? Trial 1 BP: 173/73, SPO2: 86% on 4 L of O2 via NC ? Trial 2 BP: 166/79, SPO2 92% on 4 L of O2 via NC PM Session: on 4L NC pre amb: 88% after amb decreased to 78% increased to 6L sats increased to >89% with 6 min rest amb on 6L NC sats after 84% initially on sitting SaO2 noted with poor perfusion with B hands with increased RR( Pt noted to have increased mariann during this distance) Therapeutic Activities ([id number][]): Direct one-on-one instruction in dynamic activities to improve functional performance. ?? Provided skilled cues and instruction on performance and technique throughout. AM Session ? BED MOBILITY/TRANSFERS? Sit-stand: Supervision? ? Stand-sit: Supervision ? Bed-Chair: Supervision? PM Session:? Facilitated ambulation with FWW with slow mariann for breath control SBA 40 feet x 1, 50 feet x 1 with seated rest of >6 mins between distances. with w/c follow for seated rest first walk on 4L/min 2nd on 6L/min Facilitated ambulation without AD 10 feet in room chair to toilet on 4L/min via NC ASSESSMENT:AM Session:?Pt continued to have high blood pressure, but had an easier time breathing on 4 L of o2, Pt didn?t have any SOB, and was able to hold a conversation with PT. Pt continues to perform bed mobility, and needs less cueing. Pt was able to ambulate over to the chair with mild cueing, and only needed supervision. PM Session Pt demonstrates no LOB during ambulation with FWW and short distances less than 20 feet without AD. Pt requires excessive use of accessory musculature for breath control( Upper trap, SCM scalenis)at rest and with activity. Other than increased accessory musculature use pt does not demonstrate increased RR with slow mariann and use of FWW. Pt notes she holds her breath at times and mouth breathes despite cueing for nose breathing.Pt to have ECHO this pm after treatment . Next session PT will continue to have the pt ambulate in the hallways with the level of oxygen titrated as needed, to determine if her activity tolerance has increased compared to her initial evaluation. ?PLAN: 1-2x/day, 7 days/week x 1 week. Plan of care has been reviewed with the [employer] providing the service under Physical Therapy direction. Initiate Physical Therapy intervention for pain management as needed, strengthening, bed mobility, transfers, gait, stairs, balance training, and use of assistive device. ?TREATMENT CODE/TIME: session:[id number]/ 8:55am -9:20am 2nd session: [id number] DISCHARGE RECOMMENDATION: HHPT with better breathers vs pulmonary rehab Written By Bryant Plummre DPTS Supervised By Carin Landry PT
[2025-06-22] MEDS: PIPERACILLIN/TAZO 3.375 GM in Normal Saline 50 ML IVPB ×2 (11:54→17:51)
[2025-06-22] MEDS: Normal Saline 100 ML BAG IJ (11:54)
[2025-06-22] MEDS: Acetylcysteine 20% *ORAL/INHALED* 6000 MG/30 ML VIAL 600 MG UPD ×2 (14:22→20:05)
--- NOTE | 2025-06-22 15:13 | PGE_ITS ---
Date of Service Date of service: 06/22/25 Time of Service: 08:00 Assessment and Plan Assessment and plan (1) Severe sepsis: Status: Resolved Assessment and plan: -patient met criteria for severe sepsis with WBC 15.7, HR 95, RR 27, CAP as source of infection and seen on chest CT, initial LA of 3.6 (repeat LA 2.7) -was started on CTX and azithro, will continue -had also been given IV methylpred and continued on PO 40mg prednisone BID which has since been discontinued -f/u blood culture results -of note, failed outpatient therapy with doxy prior to admission Jun 21: Leukocytosis increased today, increased O2 demand, elevated BP. Afebrile. No longer septic. (2) Pneumonia: Status: Acute Assessment and plan: Worsening hypoxemia and leukocytosis, patient not feeling any better Added vancomycin for possible MRSA superinfection given failure of outpatient treatment CT chest, consider underlying ILD Jun 22: CT chest showing likely emphysema, no apparent ILD. Discussed with Dr Hernández. Started zosyn, discontinued ceftriaxone. Continue steroids. (3) Acute hypoxemic respiratory failure: Status: Acute Assessment and plan: As above, worsening hypoxemia Not on home O2 Increasing treatment for infection (4) Transaminitis: Status: Acute Assessment and plan: -very mild increase, >2x upper limit normal -downtrending as of AM 06/20 (5) Hypertension: Status: Chronic Assessment and plan: -does not take home medications as prescribed -amlodipine and lisinopril have been restarted Jun 22: BP elevated, added spironolactone (6) Hypokalemia: Status: Acute Assessment and plan: -resolved s/p replacement (7) Hyponatremia: Status: Acute Assessment and plan: -mild, asymptomatic, likely secondary to mild SIADH in the setting of CAP -improved as of AM 06/20 up to 131 Subjective Subjective Interval history since last seen: Mrs. Bernal continues to have oxygen demand 4-5L. She is otherwise comfortable. Exam Narrative Exam Narrative: General: This is a pleasant woman in no distress HEENT: Normocephalic, atraumatic CV: RRR Resp: Diminished breath sounds bilaterally with soft expiratory wheeze, good movement of air without increased work of breathing on NC4L Abd: soft, NTND MSK: voluntary motion x4 Neuro: awake, alert, no focal deficits Objective Last Vital Signs Temp 36.6 C 06/22/25 11:12 Pulse 91 H 06/22/25 14:26 Resp 18 06/22/25 14:15 BP 170/90 H 06/22/25 11:12 Pulse Ox 91 L 06/22/25 14:15 Laboratory Results - last 24 hr 06/22/25 06/22/25 06/22/25 02:00 06:02 08:40 WBC 16.71 H RBC 4.66 Hgb 12.8 Hct 38.6 MCV 83 MCH 27.5 MCHC 33.2 RDW 16.0 H Plt Count 253 MPV 10.8 Immature Gran % 1.3 Neutrophils % 88.5 Lymphocytes % 5.5 Monocytes % 4.4 Eosinophils % 0.1 Basophils % 0.2 Nucleated RBC % 0.0 Absolute Neutrophils 14.79 H Absolute Lymphocytes 0.92 L Absolute Monocytes 0.74 Absolute Eosinophils 0.02 Absolute Basophils 0.03 VBG Lactate 1.7 Sodium 130 L Potassium 3.9 Chloride 100 Carbon Dioxide 23.3 Anion Gap 6.7 BUN 19 Creatinine 0.54 L Est GFR (CKD-EPI 2020) 106.53 Glucose 132 H Calcium 9.3 Magnesium 2.0 Total Bilirubin 1.00 AST 48 H ALT 63 H Alkaline Phosphatase 361 H Total Protein 6.6 Albumin 3.9 Random Vancomycin 12.3 PAWSS Have you Been Recently Intoxicated or Drunk Within the Last 30 days?: No Have you Ever Experienced Previous Episodes of Alcohol Withdrawal?: No Have you ever Experienced Withdrawal Seizures?: No Have you ever Experienced Delirium Tremens(DT)s?: No Have you ever undergone Alcohol Rehabilitation Treatment (i.e, inpt ot outpatient treatment programs)?: No Have you ever Experienced Blackouts?: No Have you ever Combined Alcohol with other Downers within the last 90 days?: No Have you ever Combined Alcohol with any other Substance of Abuse during the last 90 days?: No Positive Blood Alcohol level on Presentation? [PCS.BAL]: No Evidence of Increased Autonomic Activity (i.e. HR>120, tremor, sweating, agitation, nausea)?: No Result: 0 VTE Prohylaxis Risk Level: Moderate/High Risk Contraindications: None Prophylaxis: Pharmacologic Time Spent with Patient Time Spent with Patient: 25-34 minutes Time was spent: preparing to see the patient(eg.review tests), obtaining and/or reviewing separately otained hiistory, ordering medications,tests, procedures, referring, communicating with other health companion caregiver, indepentently interpreting results, counseling the patient and care coordination
[2025-06-22] MEDS: VANCOMYCIN/WATER (PEG) 1.5 GM/300 ML BAG IVPB (16:03)
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
[2025-06-22] MEDS: AZITHROMYCIN 500 MG in Normal Saline 250 ML 250 MG IVPB (19:31)
[2025-06-22] MEDS: VITAMINS A C E ZINC COPPER PO (19:31)
[2025-06-22] MEDS: [UNRECOGNIZED DRUG - OTHER] PO (19:31)
[2025-06-22] MEDS: Enoxaparin 40 MG/0.4 ML SYR SC (19:32)
[2025-06-23] VITALS (58 sets, daily range): BP systolic 134–205; BP diastolic 76–122; PULSE 85–117; RESP 12–32; TEMP 31–37; O2SAT 80–97
[2025-06-23] MEDS: PIPERACILLIN/TAZO 3.375 GM in Normal Saline 50 ML IVPB ×5 (00:11→23:45)
[2025-06-23] MEDS: Albuterol/Ipratropium 3 ML UPD VIAL UPD ×4 (01:40→19:37)
[2025-06-23 06:40] LABS: Abs Immature Grans 0.29 10^3/uL (0.0-0.06); HCT 41.4 % (36.0-46.0); HGB 14.3 g/dL (11.2-15.7); Immature Grans % 1.7 %; MCH 29.2 pg (27.0-33.0); MCHC 34.5 % (32.0-36.0); MCV 85 fL (80-95); MPV 10.2 fL (8.0-11.0); Platelet Count 262 10^3/uL (130-400); RBC 4.90 10^6/uL (3.93-5.22); RDW 16.2 % (11.7-14.6); RDW-SD 49.8 fL; WBC 17.53 10^3/uL (4.4-10.8)
[2025-06-23 07:09] LABS: ALT 68 U/L (10-49); AST 52 U/L (<34); Albumin 3.6 g/dL (3.2-5.0); Alkaline Phosphatase 360 U/L (46-116); Anion Gap 2.4 mmol/L (3-11); BUN 22 mg/dL (9-23); Bilirubin, Total 1.30 mg/dL (0.2-1.2); CO2 22.6 mmol/L (20.0-31.0); Calcium 9.1 mg/dL (8.3-10.6); Chloride 108 mmol/L (98-107); Glucose 111 mg/dL (74-106); Potassium 3.8 mmol/L (3.5-5.1); Sodium 133 mmol/L (136-145); Total Protein 6.3 g/dL (5.7-8.2)
[2025-06-23 07:10] LABS: Magnesium 2.0 mg/dL (1.6-2.6)
[2025-06-23] MEDS: Normal Saline Flush 10 ML SYR IVP ×4 (08:43→18:03)
[2025-06-23] MEDS: amLODIPine 5 MG TAB PO (08:44)
[2025-06-23] MEDS: Spironolactone 25 MG TAB PO (08:44)
[2025-06-23] MEDS: Lisinopril 20 MG TAB 40 MG PO (08:44)
[2025-06-23] MEDS: VITAMINS A C E ZINC COPPER PO ×2 (08:44→22:06)
[2025-06-23] MEDS: guaiFENesin 600 MG TABCR PO ×2 (08:44→21:55)
[2025-06-23] MEDS: Potassium Chloride 10 MEQ CAPCR 40 MEQ PO ×2 (08:44→21:55)
[2025-06-23] MEDS: predniSONE 20 MG TAB 40 MG PO (08:44)
[2025-06-23] MEDS: [UNRECOGNIZED DRUG - OTHER] PO ×2 (08:44→22:06)
--- NOTE | 2025-06-23 09:29 | NUR.NOTE ---
Pt transferred to ICU room 219. Pt is transferring due to increased O2 demands and [facility] [place]fer. Nursing Note:
--- NOTE | 2025-06-23 10:30 | RT.EKG_ITS ---
APPROVED REPORT Exam: Resting ECG Reason for Exam: SVT Patient Location: I HR:97 bpm ECG Measurements Heart Rate 97 AXIS SC 126 P 31 QRSd 105 QRS 10 QT 329 T 41 QTc 418 Conclusion Sinus rhythm...normal P axis, V-rate 50- 99 Atrial premature complexes...SV complexes w/ short R-R intvls Left atrial enlargement...P, P'>60mS, <-0.15mV V1
[2025-06-23 10:39] LABS: BE (Venous) 0 mmol/L (-2-3); HCO3 (Venous) 24 mmol/L (23-28); TCO2 (Venous) 21 mmol/L (24-29); pCO2 (Venous) 33 mmHg (41-51); pO2 (Venous) 130 mmHg
[2025-06-23 10:41] LABS: O2 Sat (Venous) > 99 %
[2025-06-23] MEDS: Hydrocortisone SOD SUC. 100 MG VIAL 50 MG IVP ×3 (11:07→21:55)
[2025-06-23] MEDS: Furosemide 20 MG/2 ML VIAL IVP (11:08)
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
[2025-06-23] MEDS: VANCOMYCIN/WATER (PEG) 1.5 GM/300 ML BAG IVPB (16:02)
--- NOTE | 2025-06-23 16:38 | PGE_ITS ---
Date of Service Date of service: 06/23/25 Time of Service: 08:00 Assessment and Plan Assessment and plan (1) Severe sepsis: Status: Resolved Assessment and plan: -patient met criteria for severe sepsis with WBC 15.7, HR 95, RR 27, CAP as source of infection and seen on chest CT, initial LA of 3.6 (repeat LA 2.7) -was started on CTX and azithro, will continue -had also been given IV methylpred and continued on PO 40mg prednisone BID which has since been discontinued -f/u blood culture results -of note, failed outpatient therapy with doxy prior to admission Leukocytosis increased Jun 21, increased O2 demand, elevated BP. Afebrile. No longer septic as of Jun 21, however she worsened over the next [address] Hernández on Jun 22, modified antibiotics She is now on azithromycin, vancomycin, pip-tazo CT late Jun 22 concerning for pulmonary abscess Discussed with [facility] [place] Pulmonology Dr Dukes on Jun 23, concern for developing ARDS. Transfer to higher level of care unlikely due to bed shortage at all local hospitals. Diuresing for likely pulmonary edema seen on CT Changed steroids from prednisone to hydrocortisone Patient confirms her DNR/DNI status, discussed and confirmed with family Will pursue hospice per her wishes Arrangement for HFNC machine for home likely to present difficulties. (2) Pneumonia: Status: Acute Assessment and plan: Worsening hypoxemia and leukocytosis, patient not feeling any better Added vancomycin for possible MRSA superinfection given failure of outpatient treatment CT chest, consider underlying ILD Jun 22: CT chest showing likely emphysema, no apparent ILD. Jun 23: Possible developing ARDS per discussion with [facility] [place]. Patient does not want to be intubated. 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 Bernal is needing increasing O2 and is now on HFNC 60L at FiO2 60%. She reports that the pressure of air in her nose is very uncomfortable and keeping her from sleeping. Multiple family members at bedside at mid-day. Patient and family are interested in pursuing hospice at home. Procurement of high flow oxygen likely the most difficult aspect of this transition. Exam Narrative Exam Narrative: General: This is a pleasant woman in some distress due to dyspnea HEENT: Normocephalic, atraumatic CV: RRR Resp: Diminished breath sounds bilaterally with expiratory wheeze, increased work of breathing on HFNC Abd: soft, NTND MSK: voluntary motion x4 Neuro: awake, alert, no focal deficits Objective Last Vital Signs Temp 36.8 C 06/23/25 09:10 Pulse 107 H 06/23/25 08:26 Resp 18 06/23/25 09:10 BP 180/89 H 06/23/25 07:47 Pulse Ox 96 06/23/25 09:10 Laboratory Results - last 24 hr 06/23/25 06/23/25 06/23/25 06:30 10:28 10:28 WBC 17.53 H RBC 4.90 Hgb 14.3 Hct 41.4 MCV 85 MCH 29.2 MCHC 34.5 RDW 16.2 H Plt Count 262 MPV 10.2 Immature Gran % 1.7 Neutrophils % 84.6 Lymphocytes % 5.9 Monocytes % 7.6 Eosinophils % 0.0 Basophils % 0.2 Nucleated RBC % 0.0 Absolute Neutrophils 14.83 H Absolute Lymphocytes 1.03 L Absolute Monocytes 1.33 H Absolute Eosinophils 0.00 Absolute Basophils 0.04 VBG pH 7.47 H VBG pCO2 33 L VBG pO2 130 VBG HCO3 24 VBG Total CO2 21 L VBG O2 Saturation > 99 VBG Base Excess 0 VBG Lactate 1.4 Cancelled Sodium 133 L Potassium 3.8 Chloride 108 H Carbon Dioxide 22.6 Anion Gap 2.4 L BUN 22 Creatinine 0.62 Est GFR (CKD-EPI 2020) 90.83 Glucose 111 H Calcium 9.1 Magnesium 2.0 Total Bilirubin 1.30 H AST 52 H ALT 68 H Alkaline Phosphatase 360 H Total Protein 6.3 Albumin 3.6 PAWSS Have you Been Recently Intoxicated or Drunk Within the Last 30 days?: No Have you Ever Experienced Previous Episodes of Alcohol Withdrawal?: No Have you ever Experienced Withdrawal Seizures?: No Have you ever Experienced Delirium Tremens(DT)s?: No Have you ever undergone Alcohol Rehabilitation Treatment (i.e, inpt ot outpatient treatment programs)?: No Have you ever Experienced Blackouts?: No Have you ever Combined Alcohol with other Downers within the last 90 days?: No Have you ever Combined Alcohol with any other Substance of Abuse during the last 90 days?: No Positive Blood Alcohol level on Presentation? [PCS.BAL]: No Evidence of Increased Autonomic Activity (i.e. HR>120, tremor, sweating, agitation, nausea)?: No Result: 0 VTE Prohylaxis Risk Level: Moderate/High Risk Contraindications: None Prophylaxis: Pharmacologic Time Spent with Patient Time Spent with Patient: >50 minutes Time was spent: preparing to see the patient(eg.review tests), obtaining and/or reviewing separately otained hiistory, ordering medications,tests, procedures, referring, communicating with other health managed care analyst, indepentently interpreting results, counseling the patient and care coordination
[2025-06-23 19:03] LABS: COVID-19 PCR Negative (Negative); RSV PCR Negative (Negative)
[2025-06-23] MEDS: AZITHROMYCIN 500 MG in Normal Saline 250 ML 250 MG IVPB (21:55)
[2025-06-23] MEDS: Enoxaparin 40 MG/0.4 ML SYR SC (21:55)
[2025-06-23] MEDS: LORazepam 0.5 MG TAB PO (23:45)
[2025-06-24] VITALS (36 sets, daily range): BP systolic 165–196; BP diastolic 87–122; PULSE 66–113; RESP 13–33; TEMP 30–36.7; O2SAT 81–100
[2025-06-24] MEDS: Albuterol/Ipratropium 3 ML UPD VIAL UPD ×4 (01:55→19:55)
[2025-06-24] MEDS: Hydrocortisone SOD SUC. 100 MG VIAL 50 MG IVP ×4 (04:21→21:18)
[2025-06-24] MEDS: Normal Saline Flush 10 ML SYR IVP ×3 (04:22→21:19)
[2025-06-24] MEDS: PIPERACILLIN/TAZO 3.375 GM in Normal Saline 50 ML IVPB ×3 (06:18→18:13)
[2025-06-24 07:02] LABS: Abs Immature Grans 0.33 10^3/uL (0.0-0.06); HCT 40.3 % (36.0-46.0); HGB 13.3 g/dL (11.2-15.7); Immature Grans % 2.1 %; MCH 27.5 pg (27.0-33.0); MCHC 33.0 % (32.0-36.0); MCV 83 fL (80-95); MPV 10.7 fL (8.0-11.0); Platelet Count 255 10^3/uL (130-400); RBC 4.84 10^6/uL (3.93-5.22); RDW 16.2 % (11.7-14.6); RDW-SD 50.0 fL; WBC 16.00 10^3/uL (4.4-10.8)
[2025-06-24 07:19] LABS: Magnesium 2.1 mg/dL (1.6-2.6)
[2025-06-24 07:20] LABS: ALT 74 U/L (10-49); AST 53 U/L (<34); Albumin 3.7 g/dL (3.2-5.0); Alkaline Phosphatase 383 U/L (46-116); Anion Gap 9.7 mmol/L (3-11); BUN 25 mg/dL (9-23); Bilirubin, Direct 0.4 mg/dL (<=0.3); Bilirubin, Total 1.30 mg/dL (0.2-1.2); CO2 25.3 mmol/L (20.0-31.0); Calcium 9.3 mg/dL (8.3-10.6); Chloride 107 mmol/L (98-107); Glucose 109 mg/dL (74-106); Potassium 3.8 mmol/L (3.5-5.1); Sodium 142 mmol/L (136-145); Total Protein 6.6 g/dL (5.7-8.2)
[2025-06-24] MEDS: Potassium Chloride 20 MEQ TABCR 40 MEQ PO ×2 (08:20→19:47)
[2025-06-24] MEDS: Spironolactone 25 MG TAB PO (08:20)
[2025-06-24] MEDS: LORazepam 0.5 MG TAB PO ×3 (08:21→19:47)
[2025-06-24] MEDS: Lisinopril 20 MG TAB 40 MG PO (08:21)
[2025-06-24] MEDS: guaiFENesin 600 MG TABCR PO ×2 (08:21→19:47)
[2025-06-24] MEDS: amLODIPine 5 MG TAB PO (08:21)
[2025-06-24] MEDS: [UNRECOGNIZED DRUG - OTHER] PO (08:22)
[2025-06-24] MEDS: VITAMINS A C E ZINC COPPER PO (08:22)
--- NOTE | 2025-06-24 08:52 | PDOC.CMPRO ---
Date of service: 06/24/25 Time of Service: 16:16 Care Management Progress Note Progress Note Text Progress Note Text: Alberta was sitting up in bed and awake when CM met with her. She was in a pleasant mood and making jokes. Shortly after, she received a call from a family member. A palliative consult has been placed, and a hospice consult has been ordered. Per report, the patient wishes to return home on hospice and will require a high-flow oxygen machine. A 17/02 caregiver has not yet been established. Hospice consult took place shortly after 13:00 by Shani. Hospice reports that their DME vendor is unable to obtain a high-flow oxygen machine. Per respiratory therapy and the provider, Alberta will continue to be weaned from high-flow oxygen. It is anticipated that she will be able to discharge home and admitted to hospice once she no longer requires high-flow support. CM will follow. Discharge Potential Discharge Needs: Other (hospice) Anticipated Barriers to Discharge: Other (High flow O2 machine ) Patient/Family Education Needs: Review discharge instructions, discuss Ask Me Three Transportation: Private vehicle Plan: Anticipate Lorraine will be discharged home, on hospice with high flow O2 machine once available and hospice admission is coordinated. It is recommended she follow up with her community providers, hospice and discharge plan of care. She will transport home via private vehicle by family. CM will follow. Social Determinants of Health Screening Will the Patient Participate in the Screening?: Declined to provide Do you worry about having a steady place to live?: yes What is your living situation today?: I have housing today, but am worried about losing it In the past 12 months, have you had to go without electric, gas, oil or water in your home?: no Has lack of transportation kept you from medical appointments or from doing things needed for daily living?: no Has anyone in your life made you feel unsafe or unsupported?: no How hard is it for you to pay for the very basics like food, housing, medical care, and heating? Would you say it is:: Not hard at all Do you want help finding or keeping work or a job?: I do not need or want help If for any reason you need help with day-to-day activities such as bathing, preparing meals, shopping, managing finances, etc., do you get the help you need?: I get all the help I need How often do you feel lonely or isolated from those around you?: Never Do you speak a language other than [place] Citizen at home?: No Does the patient want assistance with any of the above?: No Health Related Social Needs Health related social needs: housing instability, housed, with risk of homelessness (Z59.811) Health related social needs details: living in a house with her .
[2025-06-24] MEDS: Refresh PLUS Eye Drops 0.4ml OU (09:35)
[2025-06-24] MEDS: Sodium Chloride-Nasal SPRAY-ADULT 44 ML BTL NS (09:35)
[2025-06-24 12:35] LABS: Vancomycin, Random 9.7 ug/mL
[2025-06-24] MEDS: Furosemide 20 MG/2 ML VIAL IVP (13:34)
[2025-06-24 15:39] LABS: Streptococcus Pneumoniae Ag, U Negative (Negative)
[2025-06-24] MEDS: VANCOMYCIN/WATER (PEG) 1.5 GM/300 ML BAG IVPB (16:16)
--- NOTE | 2025-06-24 16:20 | W.PM.PROGNOT ---
Date of Service Date of service: 06/24/25 Time of Service: 08:00 Assessment and Plan Assessment and plan (1) Severe sepsis: Status: Resolved Assessment and plan: -patient met criteria for severe sepsis with WBC 15.7, HR 95, RR 27, CAP as source of infection and seen on chest CT, initial LA of 3.6 (repeat LA 2.7) -was started on CTX and azithro, will continue -had also been given IV methylpred and continued on PO 40mg prednisone BID which has since been discontinued -f/u blood culture results -of note, failed outpatient therapy with doxy prior to admission Leukocytosis increased Jun 21, increased O2 demand, elevated BP. Afebrile. No longer septic as of Jun 21, however she worsened over the next [address] Hernández on Jun 22, modified antibiotics She is now on azithromycin, vancomycin, pip-tazo CT late Jun 22 concerning for pulmonary abscess Discussed with [facility] [place] Pulmonology Dr Dukes on Jun 23, concern for developing ARDS. Transfer to higher level of care unlikely due to bed shortage at all local hospitals. Diuresing for likely pulmonary edema seen on CT Changed steroids from prednisone to hydrocortisone Patient confirms her DNR/DNI status, discussed and confirmed with family Will pursue hospice per her wishes Arrangement for HFNC machine for home likely to present difficulties. (2) Pneumonia: Status: Acute Assessment and plan: Worsening hypoxemia and leukocytosis, patient not feeling any better Added vancomycin for possible MRSA superinfection given failure of outpatient treatment CT chest, consider underlying ILD Jun 22: CT chest showing likely emphysema, no apparent ILD. Jun 23: Possible developing ARDS per discussion with [facility] [place]. Patient does not want to be intubated. Jun 24: She continues to be on HHFNC 60L. Not worse today in terms of oxygenation. She may improve and be able to come off HFNC and go home on O2. 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 Bernal continues to require high flow oxygen. She wants to go home. Exam Narrative Exam Narrative: General: This is a pleasant woman in some distress due to dyspnea HEENT: Normocephalic, atraumatic CV: RRR Resp: Diminished breath sounds bilaterally with expiratory wheeze, increased work of breathing on HFNC Abd: soft, NTND MSK: voluntary motion x4 Neuro: awake, alert, no focal deficits Objective Last Vital Signs Temp 36.7 C 06/24/25 08:22 Pulse 96 H 06/24/25 14:59 Resp 26 H 06/24/25 14:51 BP 196/122 H 06/24/25 14:01 Pulse Ox 93 06/24/25 14:51 Laboratory Results - last 24 hr 06/23/25 06/23/25 06/23/25 18:08 18:09 21:10 WBC RBC Hgb Hct MCV MCH MCHC RDW Plt Count MPV Immature Gran % Neutrophils % Lymphocytes % Monocytes % Eosinophils % Basophils % Nucleated RBC % Absolute Neutrophils Absolute Lymphocytes Absolute Monocytes Absolute Eosinophils Absolute Basophils ESR Sodium Potassium Chloride Carbon Dioxide Anion Gap BUN Creatinine Est GFR (CKD-EPI 2020) Glucose Calcium Magnesium Total Bilirubin Conjugated Bilirubin AST ALT Alkaline Phosphatase C-Reactive Protein Cancelled Total Protein Albumin Random Vancomycin COVID-19 Source Nasopharynx SARS-CoV-2 (PCR) Negative Influenza Type A (PCR) Negative Influenza Type B (PCR) Negative RSV (PCR) Negative Ur Strep pneumoniae Ag Cancelled 06/23/25 06/24/25 06/24/25 21:11 06:00 12:05 WBC 16.00 H RBC 4.84 Hgb 13.3 Hct 40.3 MCV 83 MCH 27.5 MCHC 33.0 RDW 16.2 H Plt Count 255 MPV 10.7 Immature Gran % 2.1 Neutrophils % 83.7 Lymphocytes % 6.8 Monocytes % 7.1 Eosinophils % 0.0 Basophils % 0.3 Nucleated RBC % 0.0 Absolute Neutrophils 13.39 H Absolute Lymphocytes 1.09 L Absolute Monocytes 1.14 H Absolute Eosinophils 0.00 Absolute Basophils 0.05 ESR Cancelled Sodium 142 Potassium 3.8 Chloride 107 Carbon Dioxide 25.3 Anion Gap 9.7 BUN 25 H Creatinine 0.75 Est GFR (CKD-EPI 2020) 72.91 Glucose 109 H Calcium 9.3 Magnesium 2.1 Total Bilirubin 1.30 H Conjugated Bilirubin 0.4 AST 53 H ALT 74 H Alkaline Phosphatase 383 H C-Reactive Protein Total Protein 6.6 Albumin 3.7 Random Vancomycin 9.7 COVID-19 Source SARS-CoV-2 (PCR) Influenza Type A (PCR) Influenza Type B (PCR) RSV (PCR) Ur Strep pneumoniae Ag PAWSS Have you Been Recently Intoxicated or Drunk Within the Last 30 days?: No Have you Ever Experienced Previous Episodes of Alcohol Withdrawal?: No Have you ever Experienced Withdrawal Seizures?: No Have you ever Experienced Delirium Tremens(DT)s?: No Have you ever undergone Alcohol Rehabilitation Treatment (i.e, inpt ot outpatient treatment programs)?: No Have you ever Experienced Blackouts?: No Have you ever Combined Alcohol with other Downers within the last 90 days?: No Have you ever Combined Alcohol with any other Substance of Abuse during the last 90 days?: No Positive Blood Alcohol level on Presentation? [PCS.BAL]: No Evidence of Increased Autonomic Activity (i.e. HR>120, tremor, sweating, agitation, nausea)?: No Result: 0 VTE Prohylaxis Risk Level: Moderate/High Risk Contraindications: None Prophylaxis: Pharmacologic Time Spent with Patient Time Spent with Patient: 35-49 minutes Time was spent: preparing to see the patient(eg.review tests), obtaining and/or reviewing separately otained hiistory, ordering medications,tests, procedures, referring, communicating with other health child care coordinator, indepentently interpreting results, counseling the patient and care coordination
[2025-06-24] MEDS: AZITHROMYCIN 500 MG in Normal Saline 250 ML 250 MG IVPB (17:26)
[2025-06-24] MEDS: Enoxaparin 40 MG/0.4 ML SYR SC (19:48)
[2025-06-25] VITALS (36 sets, daily range): BP systolic 150–193; BP diastolic 84–113; PULSE 81–107; RESP 12–30; TEMP 30–37.1; O2SAT 85–97
--- NOTE | 2025-06-25 | DI.RAD_ITS ---
Exam(s) XR PORTABLE CHEST AP EXAM: XR PORTABLE CHEST AP CLINICAL HISTORY: portable chest - lower left lobe TECHNIQUE: 2D digital imaging was performed of the chest. One image was obtained. An AP view was obtained. COMPARISON: CR,XR XR PORTABLE CHEST AP from 06/19/2025 CR XR PORTABLE CHEST AP from 06/21/2025 FINDINGS: MEDIASTINUM: Normal. HEART: Normal. PULMONARY VASCULATURE: Normal. LUNGS: There is chronic pulmonary fibrosis present. There is been slight progression of the pulmonary opacities particularly in the left lung compared to the examination from 06/21/2025. The lungs are hyperinflated with flattened diaphragms suggesting underlying COPD. PLEURAL SPACE: There is again seen blunting of the right costophrenic angle suggesting small pleural effusion. There is no pneumothorax or significant left pleural effusion. BONE:Within normal limits for the patient's age. OTHER FINDINGS:Normal. IMPRESSION: 1. Slight worsening of the pulmonary opacities since 06/21/2025. This may reflect worsening pneumonia or congestive heart failure. 2. The preliminary [facility] report was reviewed. DATA REPOSITORY: RADIATION DOSE DELIVERED:
[2025-06-25] MEDS: Furosemide 20 MG/2 ML VIAL IVP ×2 (00:03→10:32)
[2025-06-25] MEDS: Normal Saline Flush 10 ML SYR IVP ×6 (00:04→21:00)
[2025-06-25] MEDS: Albuterol/Ipratropium 3 ML UPD VIAL UPD ×4 (02:05→19:52)
[2025-06-25] MEDS: Hydrocortisone SOD SUC. 100 MG VIAL 50 MG IVP ×4 (04:23→22:38)
[2025-06-25] MEDS: LORazepam 0.5 MG TAB PO ×2 (04:24→16:46)
[2025-06-25] MEDS: Acetaminophen 325 MG TAB PO (04:24)
[2025-06-25] MEDS: PIPERACILLIN/TAZO 3.375 GM in Normal Saline 50 ML IVPB ×4 (06:10→18:30)
[2025-06-25 06:34] LABS: Abs Immature Grans 0.36 10^3/uL (0.0-0.06); HCT 42.3 % (36.0-46.0); HGB 13.4 g/dL (11.2-15.7); Immature Grans % 2.1 %; MCH 27.0 pg (27.0-33.0); MCHC 31.7 % (32.0-36.0); MCV 85 fL (80-95); MPV 10.4 fL (8.0-11.0); Platelet Count 191 10^3/uL (130-400); RBC 4.96 10^6/uL (3.93-5.22); RDW 16.3 % (11.7-14.6); RDW-SD 51.4 fL; WBC 16.96 10^3/uL (4.4-10.8)
[2025-06-25 06:52] LABS: ALT 142 U/L (10-49); AST 91 U/L (<34); Albumin 3.5 g/dL (3.2-5.0); Alkaline Phosphatase 390 U/L (46-116); Anion Gap 9.8 mmol/L (3-11); BUN 21 mg/dL (9-23); Bilirubin, Total 1.30 mg/dL (0.2-1.2); CO2 30.2 mmol/L (20.0-31.0); Calcium 8.9 mg/dL (8.3-10.6); Chloride 105 mmol/L (98-107); Glucose 129 mg/dL (74-106); Potassium 3.2 mmol/L (3.5-5.1); Sodium 145 mmol/L (136-145); Total Protein 6.2 g/dL (5.7-8.2)
[2025-06-25] MEDS: Potassium Chloride 20 MEQ TABCR 40 MEQ PO ×2 (09:15→20:58)
[2025-06-25] MEDS: guaiFENesin 600 MG TABCR PO ×2 (09:15→20:58)
[2025-06-25] MEDS: Lisinopril 20 MG TAB 40 MG PO (09:15)
[2025-06-25] MEDS: Spironolactone 25 MG TAB PO (09:15)
[2025-06-25] MEDS: amLODIPine 5 MG TAB PO (09:15)
[2025-06-25] MEDS: [UNRECOGNIZED DRUG - OTHER] PO ×2 (09:16→21:03)
[2025-06-25] MEDS: VITAMINS A C E ZINC COPPER PO ×2 (09:16→21:03)
--- NOTE | 2025-06-25 15:45 | RT.EKG_ITS ---
APPROVED REPORT Exam: Resting ECG Reason for Exam: ? ST changes Patient Location: I HR:94 bpm ECG Measurements Heart Rate 94 AXIS OR 127 P 53 QRSd 88 QRS 24 QT 339 T 67 QTc 424 Conclusion Sinus rhythm...normal P axis, V-rate 50- 99 Atrial premature complex...SV complex w/ short R-R interval Probable left atrial enlargement...P >50mS, <-0.10mV V1
[2025-06-25] MEDS: VANCOMYCIN/WATER (PEG) 1.5 GM/300 ML BAG IVPB (16:46)
--- NOTE | 2025-06-25 16:59 | HPE_ITS ---
[facility] All Active Problems (Updated 06/24/25 @ 19:09 by Nayan Galindo MD) Sepsis due to pneumonia (Acute) COPD exacerbation (Acute) Acute hypoxemic respiratory failure (Acute) Respiratory failure (Acute) Hematuria (Acute) Elevated brain natriuretic peptide (BNP) level (Acute) Transaminitis (Acute) Hypokalemia (Acute) Pneumonia (Acute) Sepsis (Acute) Hypertension (Chronic) Low back pain (Acute) CKD (chronic kidney disease) stage 3, GFR 30-59 ml/min (Acute) Hyperlipidemia (Acute) Macular degeneration of right eye (Acute) Cataracts, bilateral (Acute) Degenerative joint disease of left hip (Acute) Degenerative joint disease of right hip (Acute) Medical History Fecal occult blood test positive Right hip pain Seasonal allergies Eczema Former smoker Surgical History (Updated 03/21/23 @ 10:29 by JIMMIE Manzano) History of bilateral hip arthroplasty (03/19/22) Hx of cataract extraction Social History Smoking/Tobacco Use Status: Former Tobacco Use Quit Date: 07/28/08 Smoking risk assessment performed?: Yes Alcohol Intake: current Alcohol Intake frequency: a few times a week Alcohol type: wine Drug use: Never Substance use type: does not use Housing: house Do you feel safe at home: Yes Do you feel safe in your relationship?: Yes Meds Allergies and Home Medications Allergies Allergy/AdvReac Type Severity Reaction Status Date / Time simvastatin Allergy Mild Unknown Verified 06/19/25 16:02 Fish Containing Products Allergy Unknown Unknown Unverified 06/20/25 15:00 shellfish derived Allergy Unknown Unknown Unverified 06/20/25 15:00 adhesive tape AdvReac Severe rash Verified 06/19/25 16:02 environmental Allergy Skin Rash Uncoded 06/19/25 16:02 Home Medications ?Medication ?Instructions ?Recorded ?Confirmed ?Type lisinopril 30 mg tablet 60 mg PO DAILY 10/16/2105/29 History vitamins A,C,N-einn-hxjced 4,296 1 cap PO BID 10/16/21 06/19/25 History mcg-226 mg-90 mg capsule (ICaps AREDS) amlodipine 2.5 mg tablet 1 tab PO DAILY 03/18/2205/29 History acetaminophen 650 mg 650 mg PO Q8H PRN PRN #0 tab s 03/20/22 06/19/25 Rx tablet,extended release (Tylenol Arthritis Pain) albuterol sulfate 90 mcg/actuation 1 inh inhalation WI N 06/19/25 06/19/25 History aerosol inhaler amlodipine 5 mg tablet 5 mg PO DAILY 06/19/2506/19 History doxycycline hyclate 100 mg capsule 100 mg PO BID 06/1906/19/25 History Results Labs 06/25/25 05:55 06/25/25 06:15 Labs: Laboratory Results - last 24 hr 06/25/25 06/25/25 05:55 06:15 WBC 16.96 H RBC 4.96 Hgb 13.4 Hct 42.3 MCV 85 MCH 27.0 MCHC 31.7 L RDW 16.3 H Plt Count 191 MPV 10.4 Immature Gran % 2.1 Neutrophils % 83.9 Lymphocytes % 6.1 Monocytes % 7.5 Eosinophils % 0.0 Basophils % 0.4 Nucleated RBC % 0.0 Absolute Neutrophils 14.23 H Absolute Lymphocytes 1.03 L Absolute Monocytes 1.27 H Absolute Eosinophils 0.00 Absolute Basophils 0.07 Sodium 145 Potassium 3.2 L Chloride 105 Carbon Dioxide 30.2 Anion Gap 9.8 BUN 21 Creatinine 0.60 Est GFR (CKD-EPI 2020) 94.33 Glucose 129 H Calcium 8.9 Total Bilirubin 1.30 H AST 91 H ALT 142 H Alkaline Phosphatase 390 H Total Protein 6.2 Albumin 3.5 Last Vital Signs Temp 36.6 C 06/25/25 16:42 Pulse 96 H 06/25/25 16:42 Resp 20 06/25/25 16:42 BP 172/89 H 06/25/25 16:42 Pulse Ox 94 06/25/25 16:42 PAWSS Have you Been Recently Intoxicated or Drunk Within the Last 30 days?: No Have you Ever Experienced Previous Episodes of Alcohol Withdrawal?: No Have you ever Experienced Withdrawal Seizures?: No Have you ever Experienced Delirium Tremens(DT)s?: No Have you ever undergone Alcohol Rehabilitation Treatment (i.e, inpt ot outpatient treatment programs)?: No Have you ever Experienced Blackouts?: No Have you ever Combined Alcohol with other Downers within the last 90 days?: No Have you ever Combined Alcohol with any other Substance of Abuse during the last 90 days?: No Positive Blood Alcohol level on Presentation? [PCS.BAL]: No Evidence of Increased Autonomic Activity (i.e. HR>120, tremor, sweating, agitation, nausea)?: No Result: 0
--- NOTE | 2025-06-25 17:00 | W.PM.PROGNOT ---
Date of Service Date of service: 06/25/25 Time of Service: 08:00 Assessment and Plan Assessment and plan (1) Severe sepsis: Status: Resolved Assessment and plan: -patient met criteria for severe sepsis with WBC 15.7, HR 95, RR 27, CAP as source of infection and seen on chest CT, initial LA of 3.6 (repeat LA 2.7) -was started on CTX and azithro, will continue -had also been given IV methylpred and continued on PO 40mg prednisone BID which has since been discontinued -f/u blood culture results -of note, failed outpatient therapy with doxy prior to admission Leukocytosis increased Jun 21, increased O2 demand, elevated BP. Afebrile. No longer septic as of Jun 21, however she worsened over the next [address] Hernández on Jun 22, modified antibiotics She is now on azithromycin, vancomycin, pip-tazo CT late Jun 22 concerning for pulmonary abscess Discussed with [facility] [place] Dukes on Jun 23, concern for developing ARDS. Transfer to higher level of care unlikely due to bed shortage at all local hospitals. Diuresing for likely pulmonary edema seen on CT Changed steroids from prednisone to hydrocortisone Patient confirms her DNR/DNI status, discussed and confirmed with family Will pursue hospice per her wishes Arrangement for HFNC machine for home likely to present difficulties. (2) Pneumonia: Status: Acute Assessment and plan: Worsening hypoxemia and leukocytosis, patient not feeling any better Added vancomycin for possible MRSA superinfection given failure of outpatient treatment CT chest, consider underlying ILD Jun 22: CT chest showing likely emphysema, no apparent ILD. Jun 23: Possible developing ARDS per discussion with [facility]. Patient does not want to be intubated. Jun 24: She continues to be on HHFNC 60L. Not worse today in terms of oxygenation. She may improve and be able to come off HFNC and go home on O2. Jun 25: Some improvement, now on 40L via HHFNC. Continue antibiotics and steroids. 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 Bernal is comfortable in bed, downgraded to the floor from ICU today. Family at bedside. Family is assertive in wanting high flow oxygen to be arranged immediately so that patient can go home; this is a rare arrangement for home use. Will be able to investigate on Friday. Exam Narrative Exam Narrative: General: This is a pleasant woman in some distress due to dyspnea HEENT: Normocephalic, atraumatic CV: RRR Resp: Diminished breath sounds bilaterally with expiratory wheeze, increased work of breathing on HFNC Abd: soft, NTND MSK: voluntary motion x4 Neuro: awake, alert, no focal deficits Objective Last Vital Signs Temp 36.6 C 06/25/25 16:42 Pulse 96 H 06/25/25 16:42 Resp 20 06/25/25 16:42 BP 172/89 H 06/25/25 16:42 Pulse Ox 94 06/25/25 16:42 Laboratory Results - last 24 hr 06/25/25 06/25/25 05:55 06:15 WBC 16.96 H RBC 4.96 Hgb 13.4 Hct 42.3 MCV 85 MCH 27.0 MCHC 31.7 L RDW 16.3 H Plt Count 191 MPV 10.4 Immature Gran % 2.1 Neutrophils % 83.9 Lymphocytes % 6.1 Monocytes % 7.5 Eosinophils % 0.0 Basophils % 0.4 Nucleated RBC % 0.0 Absolute Neutrophils 14.23 H Absolute Lymphocytes 1.03 L Absolute Monocytes 1.27 H Absolute Eosinophils 0.00 Absolute Basophils 0.07 Sodium 145 Potassium 3.2 L Chloride 105 Carbon Dioxide 30.2 Anion Gap 9.8 BUN 21 Creatinine 0.60 Est GFR (CKD-EPI 2020) 94.33 Glucose 129 H Calcium 8.9 Total Bilirubin 1.30 H AST 91 H ALT 142 H Alkaline Phosphatase 390 H Total Protein 6.2 Albumin 3.5 PAWSS Have you Been Recently Intoxicated or Drunk Within the Last 30 days?: No Have you Ever Experienced Previous Episodes of Alcohol Withdrawal?: No Have you ever Experienced Withdrawal Seizures?: No Have you ever Experienced Delirium Tremens(DT)s?: No Have you ever undergone Alcohol Rehabilitation Treatment (i.e, inpt ot outpatient treatment programs)?: No Have you ever Experienced Blackouts?: No Have you ever Combined Alcohol with other Downers within the last 90 days?: No Have you ever Combined Alcohol with any other Substance of Abuse during the last 90 days?: No Positive Blood Alcohol level on Presentation? [PCS.BAL]: No Evidence of Increased Autonomic Activity (i.e. HR>120, tremor, sweating, agitation, nausea)?: No Result: 0 VTE Prohylaxis Risk Level: Moderate/High Risk Contraindications: None Prophylaxis: Pharmacologic Time Spent with Patient Time Spent with Patient: 25-34 minutes Time was spent: preparing to see the patient(eg.review tests), obtaining and/or reviewing separately otained hiistory, ordering medications,tests, procedures, referring, communicating with other health child care group leader, indepentently interpreting results, counseling the patient and care coordination
--- NOTE | 2025-06-25 17:05 | DI.VRAD_ITS ---
PROCEDURE INFORMATION: Exam: XR Chest Exam date and time: 06/25/2025 4:19 PM Age: 89 years old Clinical indication: Other: Lower left lobe concern TECHNIQUE: Imaging protocol: Radiologic exam of the chest. Views: 1 view. COMPARISON: CT CHEST WO 06/21/2025 5:08 PM FINDINGS: Lungs: Diffuse interstitial densities consistent with severe chronic lung changes. Overlying ground-glass opacities may represent pneumonia. Pleural spaces: Mild to moderate right pleural effusion . Heart/Mediastinum: Unremarkable. No cardiomegaly. Bones/joints: Unremarkable. IMPRESSION: 1. Diffuse interstitial densities consistent with severe chronic lung changes. 2. Mild to moderate right pleural effusion . 3. Overlying ground-glass opacities may represent pneumonia. Dictated and Authenticated by: Liv Gutiérrez MD. Orderin Mateo Spicer MD
[2025-06-25] MEDS: Albuterol 2.5 MG/3 ML INH SOLN VIAL UPD (18:20)
--- NOTE | 2025-06-25 18:55 | W.PC.ACHO ---
Registration Status: ADM IN Primary Language: Preferred Language: Ukrainian ED Information & Data Chief Complaint RespSymp 06/19/25 17:30 Triage Note Patient state she has been 06/19/25 15:50 having difficulty breathing for the past week, got antibiotics from her PCP but the symptoms returned again last night. 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) Hx of cataract extraction Most Recent Vital Signs Temperature 36.6 C 06/25/25 16:42 Temperature Source Temporal Artery Scan 06/25/25 16:42 Pulse 96 H 06/25/25 16:42 Pulse Rhythm Regular 06/19/25 21:23 Pulse 104 H 06/25/25 12:01 Respiratory Rate 20 06/25/25 16:42 Respiratory Effort Labored 06/23/25 09:10 Respiratory Depth Deep 06/19/25 21:23 Respiratory Pattern Tachypnea 06/23/25 09:10 Blood Pressure 172/89 H 06/25/25 16:42 Blood Pressure Mean 116 06/25/25 16:42 Pulse Oximetry 94 06/25/25 16:42 Oxygen Delivery Method High Flow Nasal Cannula 06/25/25 16:42 Oxygen Flow Rate 35 06/25/25 16:42 Fraction of Inspired Oxygen (FIO2) 58 06/25/25 16:42 Pain Level 0 06/25/25 16:42 Comment 88% on 3 L when talking with family. After family left, breathing through nose, out through mouth pursed lips, O2 up to 91% 3L NC. Pt denies CP. BP taken second time 191/92. Provider notified. 06/21/25 13:30 Allergies simvastatin Allergy (Mild, Verified 06/19/25 16:02) Unknown GI upset Fish Containing Products Allergy (Unknown, Unverified 06/20/25 15:00) Unknown patient stated she has allergy shellfish derived Allergy (Unknown, Unverified 06/20/25 15:00) Unknown Pt stated she has allergy adhesive tape Adverse Reaction (Severe, Verified 06/19/25 16:02) rash blisters environmental Allergy (Uncoded 06/19/25 16:02) Skin Rash nasal congestion Active Medications Generic Name Dose Route Start Last Admin Trade Name Freq PRN Reason Stop Dose Admin Acetaminophen 325 - 650 mg 06/19/25 21:37 06/25/25 04:24 Acetaminophen 325 Mg Tab PO 650 mg Q4H PRN PRN Administration Albuterol Sulfate 2.5 mg 06/19/25 19:12 06/25/25 18:20 Albuterol 2.5 Mg/3 Ml Inh Soln Vial UPD 2.5 mg Q2H PRN PRN Administration Albuterol/Ipratropium 3 ml 06/19/25 20:00 06/25/25 14:11 Albuterol/Ipratropium 3 Ml Upd Vial UPD 3 ml Q6H KRISTY Administration Amlodipine Besylate 5 mg 06/20/25 08:30 06/25/25 09:15 Amlodipine 5 Mg Tab PO 5 mg DAILY KRISTY Administration Carboxymethylcellulose Sodium 0 each 06/23/25 13:50 06/24/25 09:35 Refresh Plus Eye Drops 0.4ml OU 1 drp QID PRN PRN Administration Enoxaparin Sodium 40 mg 06/19/25 20:00 06/24/25 19:48 Enoxaparin 40 Mg/0.4 Ml Syr SC 40 mg Q24H KRISTY Administration Furosemide 20 mg 06/25/25 00:00 06/25/25 10:32 Furosemide 20 Mg/2 Ml Vial IVP 20 mg Q12H KRISTY Administration Guaifenesin 600 mg 06/20/25 08:30 06/25/25 09:15 Guaifenesin 600 Mg Tabcr PO 600 mg BID KRISTY Administration Hydrocortisone 50 mg 06/23/25 10:00 06/25/25 16:46 Hydrocortisone Sod Suc. 100 Mg Vial IVP 50 mg Q6H KRISTY Administration Vancomycin/PEG/NADA/Lysine/Water 1.5 gm in 300 mls @ 200 mls/hr 06/22/25 16:00 06/25/25 18:30 Vancocin Injection IVPB Infused Q24H KRISTY Infusion Piperacillin Sod/Tazobactam 50 mls @ 100 mls/hr 06/22/25 12:00 06/25/25 18:30 Sod 3.375 gm/ Sodium Chloride IVPB 100 mls/hr Q6H KRISYT Administration Lisinopril 40 mg 06/20/25 14:00 06/25/25 09:15 Lisinopril 20 Mg Tab PO 40 mg DAILY KRISTY Administration Lorazepam 0.5 mg 06/25/25 16:00 06/25/25 16:46 Lorazepam 0.5 Mg Tab PO 0.5 mg Q8H KRISTY Administration Pt's Own Vitamins A, 1 each 06/20/25 08:30 06/25/25 09:16 C,Q-Crxv-Duyhqe [ PO 1 each Icaps Areds] 14,320- BID KRISTY Administration 226- Potassium Chloride 40 meq 06/24/25 08:30 06/25/25 09:15 Potassium Chloride 20 Meq Tabcr PO 40 meq BID KRISTY Administration Sodium Chloride 0 ml 06/19/25 19:06 06/25/25 18:29 Normal Saline Flush 10 Ml Syr IVP 20 ml PRN PRN Administration Sodium Chloride 0 ml 06/19/25 20:00 06/25/25 09:16 Normal Saline Flush 10 Ml Syr IVP 20 ml BID KRISTY Administration Sodium Chloride 100 ml 06/22/25 11:22 06/22/25 11:54 Normal Saline 100 Ml Bag IJ 100 ml DIRECTED PRN Administration Flush Bag Sodium Chloride 44 ml 06/24/25 08:46 06/24/25 09:35 Sodium Chloride-Nasal [place]-Adult 44 Ml Btl NS 2 sprays QID PRN PRN Administration Spironolactone 25 mg 06/23/25 08:30 06/25/25 09:15 Spironolactone 25 Mg Tab PO 25 mg DAILY KRISTY Administration IV IV Catheter Type [Right Wrist] Peripheral IV IV Catheter Type [Left Forearm Saline Lock ] IV Catheter Type [Right Saline Lock Antecubital] IV Catheter Gauge [Right Wrist 20 ] IV Catheter Gauge [Left 22 Forearm] IV Catheter Gauge [Right 18 Antecubital] Diagnostics 06/25/25 06/25/25 Range/Units 06:15 05:55 WBC 16.96 H (4.4-10.8) 10^3/uL RBC 4.96 (3.93-5.22) 10^6/uL Hgb 13.4 (11.2-15.7) g/dL Hct 42.3 (36.0-46.0) % MCV 85 (80-95) fL MCH 27.0 (27.0-33.0) pg MCHC 31.7 L (32.0-36.0) % RDW 16.3 H (11.7-14.6) % Plt Count 191 (130-400) 10^3/uL MPV 10.4 (8.0-11.0) fL Immature Gran % 2.1 % Neutrophils % 83.9 % Lymphocytes % 6.1 % Monocytes % 7.5 % Eosinophils % 0.0 % Basophils % 0.4 % Nucleated RBC % 0.0 (0.0-0.3) % Absolute Neutrophils 14.23 H (1.2-6.7) 10^3/uL Absolute Lymphocytes 1.03 L (1.2-3.4) 10^3/uL Absolute Monocytes 1.27 H (0.1-0.8) 10^3/uL Absolute Eosinophils 0.00 (0.0-0.7) 10^3/uL Absolute Basophils 0.07 (0.0-0.2) 10^3/uL Sodium 145 (136-145) mmol/L Potassium 3.2 L (3.5-5.1) mmol/L Chloride 105 (98-107) mmol/L Carbon Dioxide 30.2 (20.0-31.0) mmol/L Anion Gap 9.8 (3-11) mmol/L BUN 21 (9-23) mg/dL Creatinine 0.60 (0.55-1.02) mg/dL Est GFR (CKD-EPI 2020) 94.33 (mL/min/1.73m2) Glucose 129 H (74-106) mg/dL Calcium 8.9 (8.3-10.6) mg/dL Total Bilirubin 1.30 H (0.2-1.2) mg/dL AST 91 H (<34) U/L ALT 142 H (10-49) U/L Alkaline Phosphatase 390 H (46-116) U/L Total Protein 6.2 (5.7-8.2) g/dL Albumin 3.5 (3.2-5.0) g/dL 06/23/25 10:28 Blood Culture - Preliminary Blood NO GROWTH 48 HOURS 06/23/25 10:20 Blood Culture - Preliminary Blood NO GROWTH 48 HOURS 06/22/25 09:58 Sputum Culture - Final Sputum Marlyn albicans Gram Stain - Final 06/19/25 17:30 Blood Culture - Final Blood NO GROWTH 120 HOURS 06/19/25 17:40 Blood Culture - Final Blood NO GROWTH 120 HOURS Intake and Output - 24 Hour Total 06/19/25 15:37 thru 06/25/25 18:30 Intake Total 10031.5 Output Total 8270 Balance 2322.5 Weight 54.3 kg Intake: IV 7332.5 Oral 3260 Output: Urine 8270 Other: Urine Color Yellow Urine Appearance Clear Urine Odor Normal Comment device d/c'd for transfer to [facility] Stool Size Moderate Stool Characteristics Soft [place] Falls Risk Assessment History of Falls No History 06/23/25 09:10 Contributing Factors No Factors 06/23/25 09:10 Ambulatory Aids Independent 06/23/25 09:10 Tubes/Lines W/no contributing factors 06/23/25 09:10 Gait Evaluation No gait disturbance 06/23/25 09:10 Cognition No cognitive impairment 06/23/25 09:10 Fall Total Score 10 06/23/25 09:10 Level of Risk Standard/Low Risk 06/23/25 09:10 Problems (Last Reviewed 04/05/22 @ 08:00 by Jonah Wood MD) COPD exacerbation (Acute) Acute hypoxemic respiratory failure (Acute) Hematuria (Acute) Elevated brain natriuretic peptide (BNP) level (Acute) Transaminitis (Acute) Hypokalemia (Acute) Pneumonia (Acute) Sepsis (Acute) Hypertension (Chronic) Notes 06/23/25 09:29 Nursing Notes by Jose Matthew Pt transferred to ICU room 219. Pt is transferring due to increased O2 demands and [facility] [place] Nursing Note: Initialized on 06/23/25 09:29 - END OF NOTE Attestation Statement: By documenting the first initial, last name, and credentials of the reporting nurse below, both parties acknowledge that all relevant information regarding the patient handoff has been communicated, and that all questions have been addressed to ensure continuity and safety of care. Additional Patient Information/Comments: Report received at 1203. Report Received From: Renetta Garrett, [employer]
[2025-06-25] MEDS: Enoxaparin 40 MG/0.4 ML SYR SC (20:59)
[2025-06-25] MEDS: AZITHROMYCIN 500 MG in Normal Saline 250 ML 250 MG IVPB (20:59)
[2025-06-25] MEDS: Mylanta Suspension 30 ML CUP PO (22:38)
[2025-06-25] MEDS: Milk of Magnesia 30 ML CUP PO (22:39)
[2025-06-26] VITALS (21 sets, daily range): BP systolic 147–180; BP diastolic 80–100; PULSE 84–104; RESP 16–21; TEMP 31–36.9; O2SAT 85–96
[2025-06-26] MEDS: PIPERACILLIN/TAZO 3.375 GM in Normal Saline 50 ML IVPB ×3 (00:14→12:15)
[2025-06-26] MEDS: Furosemide 20 MG/2 ML VIAL IVP (00:16)
[2025-06-26] MEDS: LORazepam 0.5 MG TAB PO ×3 (00:16→16:38)
[2025-06-26] MEDS: Albuterol/Ipratropium 3 ML UPD VIAL UPD ×4 (02:45→19:34)
[2025-06-26] MEDS: Hydrocortisone SOD SUC. 100 MG VIAL 50 MG IVP ×4 (04:20→21:19)
[2025-06-26 06:07] LABS: Abs Immature Grans 0.49 10^3/uL (0.0-0.06); HCT 42.5 % (36.0-46.0); HGB 13.6 g/dL (11.2-15.7); Immature Grans % 2.9 %; MCH 27.4 pg (27.0-33.0); MCHC 32.0 % (32.0-36.0); MCV 86 fL (80-95); MPV 10.3 fL (8.0-11.0); Platelet Count 161 10^3/uL (130-400); RBC 4.97 10^6/uL (3.93-5.22); RDW 16.2 % (11.7-14.6); RDW-SD 50.4 fL; WBC 17.00 10^3/uL (4.4-10.8)
[2025-06-26] MEDS: Normal Saline Flush 10 ML SYR IVP ×6 (06:26→21:21)
[2025-06-26 06:44] LABS: Magnesium 2.2 mg/dL (1.6-2.6)
[2025-06-26 06:50] LABS: ALT 290 U/L (10-49); AST 147 U/L (<34); Albumin 3.5 g/dL (3.2-5.0); Alkaline Phosphatase 379 U/L (46-116); Anion Gap 10.6 mmol/L (3-11); BUN 26 mg/dL (9-23); Bilirubin, Total 1.10 mg/dL (0.2-1.2); CO2 33.4 mmol/L (20.0-31.0); Calcium 9.0 mg/dL (8.3-10.6); Chloride 104 mmol/L (98-107); Glucose 155 mg/dL (74-106); Potassium 2.9 mmol/L (3.5-5.1); Sodium 148 mmol/L (136-145); Total Protein 6.1 g/dL (5.7-8.2)
[2025-06-26] MEDS: Lisinopril 20 MG TAB 40 MG PO (08:51)
[2025-06-26] MEDS: Spironolactone 25 MG TAB PO ×2 (08:51→12:14)
[2025-06-26] MEDS: amLODIPine 5 MG TAB PO (08:51)
[2025-06-26] MEDS: guaiFENesin 600 MG TABCR PO ×2 (08:53→21:20)
[2025-06-26] MEDS: Potassium Chloride 20 MEQ TABCR 40 MEQ PO ×2 (08:53→21:20)
[2025-06-26] MEDS: [UNRECOGNIZED DRUG - OTHER] PO (08:55)
[2025-06-26] MEDS: VITAMINS A C E ZINC COPPER PO (08:55)
[2025-06-26] MEDS: Albuterol 2.5 MG/3 ML INH SOLN VIAL UPD (12:11)
--- NOTE | 2025-06-26 14:11 | PHA.ACLINAW ---
Renal Dosing Renal Dosing: BUN 26 mg/dL (9-23) H 06/26/25 05:50 Creatinine 0.65 mg/dL (0.55-1.02) 06/26/25 05:50 Anticoagulation Anticoagulation: Hgb 13.6 g/dL (11.2-15.7) 06/26/25 05:50 Hct 42.5 % (36.0-46.0) 06/26/25 05:50 Plt Count 161 10^3/uL (130-400) 06/26/25 05:50 Creatinine 0.65 mg/dL (0.55-1.02) 06/26/25 05:50 Relevant Labs Relevant Labs: ESR Cancelled 06/23/25 21:11 Sodium 148 mmol/L (136-145) H 06/26/25 05:50 Potassium 2.9 mmol/L (3.5-5.1) L 06/26/25 05:50 Chloride 104 mmol/L (98-107) 06/26/25 05:50 Magnesium 2.2 mg/dL (1.6-2.6) 06/26/25 05:50 C-Reactive Protein Cancelled 06/23/25 21:10 DM Control DM Control: Glucose 155 mg/dL (74-106) H 06/26/25 05:50 Cardiac Review Cardiac Review: Troponin I 6 ng/L (<35) 06/19/25 17:30 NT-Pro-B Natriuret Pep 1595 pg/mL (<300) H 06/19/25 16:15 Pharmacy Antibiotic Review Pharmacy Antibiotic Activity: D/C antibiotic (patient has received 5 days of treatment with zosyn/vanco and 7 days with azithromycin for pneumonia. recommended to discontinue therapy. )
--- NOTE | 2025-06-26 17:14 | W.PM.PROGNOT ---
Date of Service Date of service: 06/26/25 Time of Service: 08:00 Assessment and Plan Assessment and plan (1) Severe sepsis: Status: Resolved Assessment and plan: -patient met criteria for severe sepsis with WBC 15.7, HR 95, RR 27, CAP as source of infection and seen on chest CT, initial LA of 3.6 (repeat LA 2.7) -was started on CTX and azithro, will continue -had also been given IV methylpred and continued on PO 40mg prednisone BID which has since been discontinued -f/u blood culture results -of note, failed outpatient therapy with doxy prior to admission Leukocytosis increased Jun 21, increased O2 demand, elevated BP. Afebrile. No longer septic as of Jun 21, however she worsened over the next [address] Hernández on Jun 22, modified antibiotics She is now on azithromycin, vancomycin, pip-tazo CT late Jun 22 concerning for pulmonary abscess Discussed with [facility] Pulmonology Dr Dukes on Jun 23, concern for developing ARDS. Transfer to higher level of care unlikely due to bed shortage at all local hospitals. Diuresing for likely pulmonary edema seen on CT Changed steroids from prednisone to hydrocortisone Patient confirms her DNR/DNI status, discussed and confirmed with family Will pursue hospice per her wishes Arrangement for HFNC machine for home likely to present difficulties. (2) Pneumonia: Status: Acute Assessment and plan: Patient admitted to the floor. Worsening hypoxemia and leukocytosis, patient not feeling any better, transferred to ICU. Appreciate pulmonology support from Dr Hernández, adjusted antibiotics and steroids CT chest suggestive of LLL abscess. Worsening hypoxemia, on HHFNC. Consulted [facility] critical care, who advised no bipap as patient is not retaining CO2 Pulm abscess unlikely to be removed nor affected by antibiotics Possibly advancing to ARDS, patient appropriate for hospice As of Jun 26, patient is improving, still on HHFNC Antibiotics discontinued Jun 26 after 7 day course and improvement Requested re-evaluation by Dr Hernández again for Jun 27 (3) Acute hypoxemic respiratory failure: Status: Acute Assessment and plan: As above, worsening hypoxemia Not on home O2 Continue treatment for infection (4) Hypertension: Status: Chronic Assessment and plan: -does not take home medications as prescribed -amlodipine and lisinopril have been restarted - Added spironolactone, then furosemide Continue to adjust regimen (5) Hyponatremia: Status: Resolved Assessment and plan: -mild, asymptomatic, 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 Bernal is feeling better, sitting up in bed with family at bedside. She is on less HFNC oxygen today. Exam Narrative Exam Narrative: General: This is a pleasant woman in some distress due to dyspnea HEENT: Normocephalic, atraumatic CV: RRR Resp: Diminished breath sounds bilaterally with expiratory wheeze, increased work of breathing on HFNC Abd: soft, NTND MSK: voluntary motion x4 Neuro: awake, alert, no focal deficits Objective Last Vital Signs Temp 36.8 C 06/26/25 16:48 Pulse 90 06/26/25 16:48 Resp 20 06/26/25 16:48 BP 147/80 H 06/26/25 16:48 Pulse Ox 92 06/26/25 16:48 Laboratory Results - last 24 hr 06/26/25 05:50 WBC 17.00 H RBC 4.97 Hgb 13.6 Hct 42.5 MCV 86 MCH 27.4 MCHC 32.0 RDW 16.2 H Plt Count 161 MPV 10.3 Immature Gran % 2.9 Neutrophils % 84.8 Lymphocytes % 5.7 Monocytes % 6.1 Eosinophils % 0.0 Basophils % 0.5 Nucleated RBC % 0.0 Absolute Neutrophils 14.42 H Absolute Lymphocytes 0.97 L Absolute Monocytes 1.04 H Absolute Eosinophils 0.00 Absolute Basophils 0.09 Sodium 148 H Potassium 2.9 L Chloride 104 Carbon Dioxide 33.4 H Anion Gap 10.6 BUN 26 H Creatinine 0.65 Est GFR (CKD-EPI 2020) 86.01 Glucose 155 H Calcium 9.0 Magnesium 2.2 Total Bilirubin 1.10 AST 147 H ALT 290 H Alkaline Phosphatase 379 H Total Protein 6.1 Albumin 3.5 PAWSS Have you Been Recently Intoxicated or Drunk Within the Last 30 days?: No Have you Ever Experienced Previous Episodes of Alcohol Withdrawal?: No Have you ever Experienced Withdrawal Seizures?: No Have you ever Experienced Delirium Tremens(DT)s?: No Have you ever undergone Alcohol Rehabilitation Treatment (i.e, inpt ot outpatient treatment programs)?: No Have you ever Experienced Blackouts?: No Have you ever Combined Alcohol with other Downers within the last 90 days?: No Have you ever Combined Alcohol with any other Substance of Abuse during the last 90 days?: No Positive Blood Alcohol level on Presentation? [PCS.BAL]: No Evidence of Increased Autonomic Activity (i.e. HR>120, tremor, sweating, agitation, nausea)?: No Result: 0 VTE Prohylaxis Risk Level: Moderate/High Risk Contraindications: None Prophylaxis: Pharmacologic Time Spent with Patient Time Spent with Patient: 25-34 minutes Time was spent: preparing to see the patient(eg.review tests), obtaining and/or reviewing separately otained hiistory, ordering medications,tests, procedures, referring, communicating with other health managed care liaison, indepentently interpreting results, counseling the patient and care coordination
[2025-06-26] MEDS: Enoxaparin 40 MG/0.4 ML SYR SC (21:20)
[2025-06-27] VITALS (16 sets, daily range): BP systolic 127–184; BP diastolic 84–100; PULSE 87–134; RESP 12–22; TEMP 36.4–36.8; O2SAT 88–98
--- NOTE | 2025-06-27 | DI.RAD_ITS ---
Exam(s) XR HIP RT COMPLETE AP PELVIS EXAM: XR HIP RT COMPLETE AP PELVIS CLINICAL HISTORY: right hip pain, no fall history. TECHNIQUE: 2D digital imaging was performed. COMPARISON: CR XR HIP RT AP LAT ONLY from 03/21/2023 FINDINGS: 3 views No evidence of pelvic nor hip fracture. Bilateral hip prostheses noted. Additional views of the right hip reveal intact prosthesis. No fracture or loosening evident. Right hip exhibits similar appearance to images of 03/21/2023. IMPRESSION: Bilateral hip prostheses. No acute osseous findings. DATA REPOSITORY: RADIATION DOSE DELIVERED:
--- NOTE | 2025-06-27 00:20 | RESPIRATORY ---
Called by Nursing to assess patient for low Sp02. Sp02 @ 88-89% on patient's pocket tele. Nursing notified.
[2025-06-27] MEDS: VITAMINS A C E ZINC COPPER PO ×3 (00:42→21:00)
[2025-06-27] MEDS: [UNRECOGNIZED DRUG - OTHER] PO ×3 (00:42→21:00)
[2025-06-27] MEDS: LORazepam 0.5 MG TAB PO ×3 (00:42→16:55)
[2025-06-27] MEDS: Albuterol/Ipratropium 3 ML UPD VIAL UPD ×4 (01:35→20:00)
[2025-06-27] MEDS: Hydrocortisone SOD SUC. 100 MG VIAL 50 MG IVP ×2 (04:52→10:36)
--- NOTE | 2025-06-27 06:19 | W.PULMPROG ---
Assessment and Plan Assessment and plan (1) COPD exacerbation: Status: Acute (2) Acute hypoxemic respiratory failure: Status: Acute (3) Pneumonia: Status: Acute General Date Of Service Date of service: 06/27/25 Time of Service: 07:20 Requesting physician: Nayan Galindo Reason for Consult: Hypoxia Recommendations: Assessment: 1. Acute hypoxemic respiratory failure - due to pneumonia and COPD exacerbation. Currently on AIRVO 35 L, 55% FiO2 2. Community acquired pneumonia - infectious workup negative to date 3. COPD exacerbation - significant emphysematous changes on CT imaging. No prior PFT's available 4. Pleural effusions - trace bilateral effusions on CT imaging. POCUS exam 06/22 showed no significant effusion on either lung Recommendations: - she has expressed wishes to purse more palliative course. I was able to meet with the patient and Dr. Crespo this AM. She would like to discharge home with hospice. I feel this is reasonable. - will trial on nasal cannula to assess O2 requirements at this time. Home O2 can be arranged with hospice - continue with PRN bronchodilators Discussed with Dr. Callaway and Dr. Crespo Subjective Note Note: Patient is an 89 yo with a history of tobacco abuse who was admitted on 06/19 for dyspnea / pneumonia. She reported a several month history of dyspnea. Symptoms significantly worsened last week and she developed a productive cough. She was treated as an outpatient with doxycycline, but continued to worsen so presented to the ED. WBC was elevated. CT chest imaging showed bilateral infiltrates, emphysematous changes, lower lobe consolidation. The left lower lobe consolidation was concerning for necrosis / early pulmonary abscess. Trace bialteral pleural effusions were noted. She denies any prior history of lung disease. She was a smoker (quit in 2008.) Denies any history of autoimmune disease. No history of aspiration or difficulty swallowing. She is currently on airvo 35L FiO2 60%. Antibiotics were discontinued yesterday in the interest of pursuing a more palliative approach. She feels as though her cough has mildly improved. Has intermittent bloody mucous. Denied chest pain. Dyspnea is unchanged over the past few days. ROS: 6 pt ROS negative except as above Fx: mother - COPD Sx: smoked 0.5 ppd x ~20 years. Quit 2009 Exam Narrative Exam Narrative: General: alert, no acute distress Head: normocephalic ENT: no stridor, trachea midline CV: normal rate, regular rhythm Respiratory: no wheezing, no crackles, bilateral rhonchi, no prolonged expiration GI: abd soft, non-tender, non-distended Skin: no rashes Extremities: trace edema, no digital clubbing Psych: normal affect Objective Last Vital Signs Temp 36.8 C 06/27/25 03:46 Pulse 92 H 06/27/25 03:46 Resp 22 06/27/25 03:46 BP 174/90 H 06/27/25 03:46 Pulse Ox 90 L 06/27/25 03:46 Laboratory Results - last 24 hr 06/26/25 05:50 Sodium 148 H Potassium 2.9 L Chloride 104 Carbon Dioxide 33.4 H Anion Gap 10.6 BUN 26 H Creatinine 0.65 Est GFR (CKD-EPI 2020) 86.01 Glucose 155 H Calcium 9.0 Magnesium 2.2 Total Bilirubin 1.10 AST 147 H ALT 290 H Alkaline Phosphatase 379 H Total Protein 6.1 Albumin 3.5 Results Medications Medications: Active Medications Generic Name Dose Route Start Last Admin Trade Name Freq PRN Reason Stop Dose Admin Acetaminophen 325 - 650 mg 06/19/25 21:37 06/25/25 04:24 Acetaminophen 325 Mg Tab PO 650 mg Q4H PRN PRN Administration Al Hydrox/Mg Hydrox/Simethicone 30 ml 06/19/25 19:12 06/25/25 22:38 Mylanta Suspension 30 Ml Cup PO 30 ml Q2H PRN PRN Administration Albuterol Sulfate 2.5 mg 06/19/25 19:12 06/26/25 12:11 Albuterol 2.5 Mg/3 Ml Inh Soln Vial UPD 2.5 mg Q2H PRN PRN Administration Albuterol/Ipratropium 3 ml 06/19/25 20:00 06/27/25 01:35 Albuterol/Ipratropium 3 Ml Upd Vial UPD 3 ml Q6H KRISTY Administration Amlodipine Besylate 5 mg 06/20/25 08:30 06/26/25 08:51 Amlodipine 5 Mg Tab PO 5 mg DAILY KRISTY Administration Carboxymethylcellulose Sodium 0 each 06/23/25 13:50 06/24/25 09:35 Refresh Plus Eye Drops 0.4ml OU 1 drp QID PRN PRN Administration Docusate Sodium 100 mg 06/19/25 19:12 Docusate Sodium 100 Mg Cap PO TID PRN PRN Enoxaparin Sodium 40 mg 06/19/25 20:00 06/26/25 21:20 Enoxaparin 40 Mg/0.4 Ml Syr SC 40 mg Q24H KRISTY Administration Guaifenesin 600 mg 06/20/25 08:30 06/26/25 21:20 Guaifenesin 600 Mg Tabcr PO 600 mg BID KRISTY Administration Hydrocortisone 50 mg 06/23/25 10:00 06/27/25 04:52 Hydrocortisone Sod Suc. 100 Mg Vial IVP 50 mg Q6H KRISTY Administration Lisinopril 40 mg 06/20/25 14:00 06/26/25 08:51 Lisinopril 20 Mg Tab PO 40 mg DAILY KRISTY Administration Lorazepam 0.5 mg 06/25/25 16:00 06/27/25 00:42 Lorazepam 0.5 Mg Tab PO 0.5 mg Q8H KRISTY Administration Magnesium Hydroxide 30 ml 06/19/25 19:12 06/25/25 22:39 Milk Of Magnesia 30 Ml Cup PO 30 ml DAILY PRN PRN Administration Pt's Own Vitamins A, 1 each 06/20/25 08:30 06/27/25 00:42 C,[id number] [ PO 1 each Icaps Areds] 14,320- BID KRISTY Administration 226- Polyethylene Glycol 17 gm 06/19/25 19:12 Polyethylene Glycol 3350 17 Gm Packet PO DAILY PRN PRN Constipation Potassium Chloride 40 meq 06/24/25 08:30 06/26/25 21:20 Potassium Chloride 20 Meq Tabcr PO 40 meq BID KRISTY Administration Sodium Chloride 0 ml 06/19/25 19:06 06/26/25 16:38 Normal Saline Flush 10 Ml Syr IVP 20 ml PRN PRN Administration Sodium Chloride 0 ml 06/19/25 20:00 06/26/25 21:21 Normal Saline Flush 10 Ml Syr IVP 10 ml BID KRISTY Administration Sodium Chloride 0 ml 06/19/25 19:06 Normal Saline 10 Ml Vial IJ DIRECTED PRN Sodium Chloride 100 ml 06/22/25 11:22 06/22/25 11:54 Normal Saline 100 Ml Bag IJ 100 ml DIRECTED PRN Administration Flush Bag Sodium Chloride 44 ml 06/24/25 08:46 06/24/25 09:35 Sodium Chloride-Nasal [place]-Adult 44 Ml Btl NS 2 sprays QID PRN PRN Administration Spironolactone 50 mg 06/27/25 08:30 Spironolactone 50 Mg Tab PO DAILY KRISTY Allergies simvastatin Allergy (Mild, Verified 06/19/25 16:02) Unknown Fish Containing Products Allergy (Unknown, Unverified 06/20/25 15:00) Unknown shellfish derived Allergy (Unknown, Unverified 06/20/25 15:00) Unknown adhesive tape Adverse Reaction (Severe, Verified 06/19/25 16:02) rash environmental Allergy (Uncoded 06/19/25 16:02) Skin Rash Labs 06/27/25 06:10 06/27/25 06:10 Labs: 06/23/25 10:28 Blood Blood Culture - Preliminary NO GROWTH 72 HOURS 06/23/25 10:20 Blood Blood Culture - Preliminary NO GROWTH 72 HOURS 06/22/25 09:58 Sputum Sputum Culture - Final Marlyn albicans 06/22/25 09:58 Sputum Gram Stain - Final 06/19/25 17:30 Blood Blood Culture - Final NO GROWTH 120 HOURS 06/19/25 17:40 Blood Blood Culture - Final NO GROWTH 120 HOURS Laboratory Tests Range/Units 06/19/25 06/19/25 06/19/25 16:15 16:23 16:52 WBC (4.4-10.8) 10^3/uL 15.74 H RBC (3.93-5.22) 10^6/uL 5.49 H Hgb (11.2-15.7) g/dL 15.1 Hct (36.0-46.0) % 44.5 MCV (80-95) fL 81 MCH (27.0-33.0) pg 27.5 MCHC (32.0-36.0) % 33.9 RDW (11.7-14.6) % 14.9 H Plt Count (130-400) 10^3/uL 301 MPV (8.0-11.0) fL 9.5 Immature Gran % % 1.6 Neutrophils % % 78.5 Lymphocytes % % 12.2 Monocytes % % 7.3 Eosinophils % % 0.1 Basophils % % 0.3 Nucleated RBC % (0.0-0.3) % 0.0 Absolute Neutrophils (1.2-6.7) 10^3/uL 12.36 H Absolute Lymphocytes (1.2-3.4) 10^3/uL 1.92 Absolute Monocytes (0.1-0.8) 10^3/uL 1.15 H Absolute Eosinophils (0.0-0.7) 10^3/uL 0.02 Absolute Basophils (0.0-0.2) 10^3/uL 0.05 ESR D-Dimer (<500) ng/mlFEU 840 H VBG pH (7.31-7.41) 7.45 H VBG pCO2 (41-51) mmHg 43 VBG pO2 mmHg 29 VBG HCO3 (23-28) mmol/L 30 H VBG Total CO2 (24-29) mmol/L 26 VBG O2 Saturation % 60 VBG Base Excess (-2-3) mmol/L 6 H VBG Lactate (<or=2.0) mmol/L 2.0 Sodium (136-145) mmol/L 127 L Potassium (3.5-5.1) mmol/L 3.0 L Chloride (98-107) mmol/L 90 L Carbon Dioxide (20.0-31.0) mmol/L 27.8 Anion Gap (3-11) mmol/L 8.8 BUN (9-23) mg/dL 20 Creatinine (0.55-1.02) mg/dL 0.53 L Est GFR (CKD-EPI 2020) (mL/min/1.73m2) 108.85 Glucose (74-106) mg/dL 111 H Calcium (8.3-10.6) mg/dL 9.2 Magnesium (1.6-2.6) mg/dL Total Bilirubin (0.2-1.2) mg/dL 1.40 H Conjugated Bilirubin (<=0.3) mg/dL AST (<34) U/L 43 H ALT (10-49) U/L 66 H Alkaline Phosphatase (46-116) U/L 447 H Troponin I (<35) ng/L 7 C-Reactive Protein NT-Pro-B Natriuret Pep (<300) pg/mL 1595 H Total Protein (5.7-8.2) g/dL 7.0 Albumin (3.4-5.0) g/dL 4.3 Urine Color (Yellow) Yellow Urine Clarity (Clear) Clear Urine pH (5-8) 6.0 Ur Specific [place] (1.005-1.025) 1.025 Urine Protein (Neg-Trace) mg/dL 100 H Urine Ketones (Negative) mg/dL Negative Urine Blood (Negative) Trace-intact H Urine Nitrite (Negative) Negative Urine Bilirubin (Negative) Negative Urine Urobilinogen (Up to 0.2) mg/dL 1.0 H Ur Leukocyte Esterase (Negative) Negative Urine RBC (0-2) HPF 3-5 H Urine WBC (0-5) HPF 3-5 Ur Epithelial Cells (Negative) HPF Many Urine Crystals (Negative) HPF Negative Urine Bacteria (Negative) HPF Negative Urine Mucus (Negative) Heavy Urine Other (Negative) Rare Yeast Ur Culture Indicated? No Urine Glucose (Negative) mg/dL Negative Random Vancomycin ug/mL COVID-19 Source Nasopharynx SARS-CoV-2 (PCR) (Negative) Negative Influenza Type A (PCR) (Negative) Negative Influenza Type B (PCR) (Negative) Negative Urine Legionella Ag (Negative) RSV (PCR) (Negative) Negative MRSA (TEM-PCR) (Negative) Ur Strep pneumoniae Ag Range/Units 06/19/25 06/19/25 06/19/25 17:30 20:20 21:40 WBC (4.4-10.8) 10^3/uL RBC (3.93-5.22) 10^6/uL Hgb (11.2-15.7) g/dL Hct (36.0-46.0) % MCV (80-95) fL MCH (27.0-33.0) pg MCHC (32.0-36.0) % RDW (11.7-14.6) % Plt Count (130-400) 10^3/uL MPV (8.0-11.0) fL Immature Gran % % Neutrophils % % Lymphocytes % % Monocytes % % Eosinophils % % Basophils % % Nucleated RBC % (0.0-0.3) % Absolute Neutrophils (1.2-6.7) 10^3/uL Absolute Lymphocytes (1.2-3.4) 10^3/uL Absolute Monocytes (0.1-0.8) 10^3/uL Absolute Eosinophils (0.0-0.7) 10^3/uL Absolute Basophils (0.0-0.2) 10^3/uL ESR D-Dimer (<500) ng/mlFEU VBG pH (7.31-7.41) VBG pCO2 (41-51) mmHg VBG pO2 mmHg VBG HCO3 (23-28) mmol/L VBG Total CO2 (24-29) mmol/L VBG O2 Saturation % VBG Base Excess (-2-3) mmol/L VBG Lactate (<or=2.0) mmol/L Sodium (136-145) mmol/L Potassium (3.5-5.1) mmol/L Chloride (98-107) mmol/L Carbon Dioxide (20.0-31.0) mmol/L Anion Gap (3-11) mmol/L BUN (9-23) mg/dL Creatinine (0.55-1.02) mg/dL Est GFR (CKD-EPI 2020) (mL/min/1.73m2) Glucose (74-106) mg/dL Calcium (8.3-10.6) mg/dL Magnesium (1.6-2.6) mg/dL Total Bilirubin (0.2-1.2) mg/dL Conjugated Bilirubin (<=0.3) mg/dL AST (<34) U/L ALT (10-49) U/L Alkaline Phosphatase (46-116) U/L Troponin I (<35) ng/L 6 C-Reactive Protein NT-Pro-B Natriuret Pep (<300) pg/mL Total Protein (5.7-8.2) g/dL Albumin (3.4-5.0) g/dL Urine Color (Yellow) Urine Clarity (Clear) Urine pH (5-8) Ur Specific [place] (1.005-1.025) Urine Protein (Neg-Trace) mg/dL Urine Ketones (Negative) mg/dL Urine Blood (Negative) Urine Nitrite (Negative) Urine Bilirubin (Negative) Urine Urobilinogen (Up to 0.2) mg/dL Ur Leukocyte Esterase (Negative) Urine RBC (0-2) HPF Urine WBC (0-5) HPF Ur Epithelial Cells (Negative) HPF Urine Crystals (Negative) HPF Urine Bacteria (Negative) HPF Urine Mucus (Negative) Urine Other (Negative) Ur Culture Indicated? Urine Glucose (Negative) mg/dL Random Vancomycin ug/mL COVID-19 Source SARS-CoV-2 (PCR) (Negative) Influenza Type A (PCR) (Negative) Influenza Type B (PCR) (Negative) Urine Legionella Ag (Negative) Negative RSV (PCR) (Negative) MRSA (TEM-PCR) (Negative) Negative Ur Strep pneumoniae Ag Range/Units 06/19/25 06/20/25 06/20/25 23:00 02:00 06:04 WBC (4.4-10.8) 10^3/uL 12.56 H RBC (3.93-5.22) 10^6/uL 4.97 Hgb (11.2-15.7) g/dL 14.0 Hct (36.0-46.0) % 41.0 MCV (80-95) fL 83 MCH (27.0-33.0) pg 28.2 MCHC (32.0-36.0) % 34.1 RDW (11.7-14.6) % 15.2 H Plt Count (130-400) 10^3/uL 249 MPV (8.0-11.0) fL 9.7 Immature Gran % % 1.6 Neutrophils % % 83.1 Lymphocytes % % 8.3 Monocytes % % 6.8 Eosinophils % % 0.0 Basophils % % 0.2 Nucleated RBC % (0.0-0.3) % 0.0 Absolute Neutrophils (1.2-6.7) 10^3/uL 10.44 H Absolute Lymphocytes (1.2-3.4) 10^3/uL 1.04 L Absolute Monocytes (0.1-0.8) 10^3/uL 0.85 H Absolute Eosinophils (0.0-0.7) 10^3/uL 0.00 Absolute Basophils (0.0-0.2) 10^3/uL 0.03 ESR D-Dimer (<500) ng/mlFEU VBG pH (7.31-7.41) VBG pCO2 (41-51) mmHg VBG pO2 mmHg VBG HCO3 (23-28) mmol/L VBG Total CO2 (24-29) mmol/L VBG O2 Saturation % VBG Base Excess (-2-3) mmol/L VBG Lactate (<or=2.0) mmol/L 3.6 H* 2.7 H* Sodium (136-145) mmol/L 131 L Potassium (3.5-5.1) mmol/L 4.3 D Chloride (98-107) mmol/L 99 Carbon Dioxide (20.0-31.0) mmol/L 24.2 Anion Gap (3-11) mmol/L 8.2 BUN (9-23) mg/dL 16 Creatinine (0.55-1.02) mg/dL 0.44 L Est GFR (CKD-EPI 2020) (mL/min/1.73m2) 134.93 Glucose (74-106) mg/dL 123 H Calcium (8.3-10.6) mg/dL 8.9 Magnesium (1.6-2.6) mg/dL Total Bilirubin (0.2-1.2) mg/dL 0.90 Conjugated Bilirubin (<=0.3) mg/dL AST (<34) U/L 37 H ALT (10-49) U/L 60 H Alkaline Phosphatase (46-116) U/L 376 H Troponin I (<35) ng/L C-Reactive Protein NT-Pro-B Natriuret Pep (<300) pg/mL Total Protein (5.7-8.2) g/dL 6.1 Albumin (3.4-5.0) g/dL 3.7 Urine Color (Yellow) Urine Clarity (Clear) Urine pH (5-8) Ur Specific [place] (1.005-1.025) Urine Protein (Neg-Trace) mg/dL Urine Ketones (Negative) mg/dL Urine Blood (Negative) Urine Nitrite (Negative) Urine Bilirubin (Negative) Urine Urobilinogen (Up to 0.2) mg/dL Ur Leukocyte Esterase (Negative) Urine RBC (0-2) HPF Urine WBC (0-5) HPF Ur Epithelial Cells (Negative) HPF Urine Crystals (Negative) HPF Urine Bacteria (Negative) HPF Urine Mucus (Negative) Urine Other (Negative) Ur Culture Indicated? Urine Glucose (Negative) mg/dL Random Vancomycin ug/mL COVID-19 Source SARS-CoV-2 (PCR) (Negative) Influenza Type A (PCR) (Negative) Influenza Type B (PCR) (Negative) Urine Legionella Ag (Negative) RSV (PCR) (Negative) MRSA (TEM-PCR) (Negative) Ur Strep pneumoniae Ag Range/Units 06/21/25 06/22/25 06/22/25 06:00 02:00 06:02 WBC (4.4-10.8) 10^3/uL 19.34 H 16.71 H RBC (3.93-5.22) 10^6/uL 5.07 4.66 Hgb (11.2-15.7) g/dL 14.0 12.8 Hct (36.0-46.0) % 42.0 38.6 MCV (80-95) fL 83 83 MCH (27.0-33.0) pg 27.6 27.5 MCHC (32.0-36.0) % 33.3 33.2 RDW (11.7-14.6) % 15.7 H 16.0 H Plt Count (130-400) 10^3/uL 274 253 MPV (8.0-11.0) fL 10.2 10.8 Immature Gran % % 1.3 Neutrophils % % 88.5 Lymphocytes % % 5.5 Monocytes % % 4.4 Eosinophils % % 0.1 Basophils % % 0.2 Nucleated RBC % (0.0-0.3) % 0.0 Absolute Neutrophils (1.2-6.7) 10^3/uL 14.79 H Absolute Lymphocytes (1.2-3.4) 10^3/uL 0.92 L Absolute Monocytes (0.1-0.8) 10^3/uL 0.74 Absolute Eosinophils (0.0-0.7) 10^3/uL 0.02 Absolute Basophils (0.0-0.2) 10^3/uL 0.03 ESR D-Dimer (<500) ng/mlFEU VBG pH (7.31-7.41) VBG pCO2 (41-51) mmHg VBG pO2 mmHg VBG HCO3 (23-28) mmol/L VBG Total CO2 (24-29) mmol/L VBG O2 Saturation % VBG Base Excess (-2-3) mmol/L VBG Lactate (<or=2.0) mmol/L Sodium (136-145) mmol/L 129 L Potassium (3.5-5.1) mmol/L 4.1 Chloride (98-107) mmol/L 100 Carbon Dioxide (20.0-31.0) mmol/L 23.1 Anion Gap (3-11) mmol/L 5.9 BUN (9-23) mg/dL 19 Creatinine (0.55-1.02) mg/dL 0.52 L Est GFR (CKD-EPI 2020) (mL/min/1.73m2) 111.27 Glucose (74-106) mg/dL 118 H Calcium (8.3-10.6) mg/dL 9.1 Magnesium (1.6-2.6) mg/dL Total Bilirubin (0.2-1.2) mg/dL Conjugated Bilirubin (<=0.3) mg/dL AST (<34) U/L ALT (10-49) U/L Alkaline Phosphatase (46-116) U/L Troponin I (<35) ng/L C-Reactive Protein NT-Pro-B Natriuret Pep (<300) pg/mL Total Protein (5.7-8.2) g/dL Albumin (3.4-5.0) g/dL Urine Color (Yellow) Urine Clarity (Clear) Urine pH (5-8) Ur Specific [place] (1.005-1.025) Urine Protein (Neg-Trace) mg/dL Urine Ketones (Negative) mg/dL Urine Blood (Negative) Urine Nitrite (Negative) Urine Bilirubin (Negative) Urine Urobilinogen (Up to 0.2) mg/dL Ur Leukocyte Esterase (Negative) Urine RBC (0-2) HPF Urine WBC (0-5) HPF Ur Epithelial Cells (Negative) HPF Urine Crystals (Negative) HPF Urine Bacteria (Negative) HPF Urine Mucus (Negative) Urine Other (Negative) Ur Culture Indicated? Urine Glucose (Negative) mg/dL Random Vancomycin ug/mL 12.3 COVID-19 Source SARS-CoV-2 (PCR) (Negative) Influenza Type A (PCR) (Negative) Influenza Type B (PCR) (Negative) Urine Legionella Ag (Negative) RSV (PCR) (Negative) MRSA (TEM-PCR) (Negative) Ur Strep pneumoniae Ag Range/Units 06/22/25 06/23/25 06/23/25 08:40 06:30 10:28 WBC (4.4-10.8) 10^3/uL 17.53 H RBC (3.93-5.22) 10^6/uL 4.90 Hgb (11.2-15.7) g/dL 14.3 Hct (36.0-46.0) % 41.4 MCV (80-95) fL 85 MCH (27.0-33.0) pg 29.2 MCHC (32.0-36.0) % 34.5 RDW (11.7-14.6) % 16.2 H Plt Count (130-400) 10^3/uL 262 MPV (8.0-11.0) fL 10.2 Immature Gran % % 1.7 Neutrophils % % 84.6 Lymphocytes % % 5.9 Monocytes % % 7.6 Eosinophils % % 0.0 Basophils % % 0.2 Nucleated RBC % (0.0-0.3) % 0.0 Absolute Neutrophils (1.2-6.7) 10^3/uL 14.83 H Absolute Lymphocytes (1.2-3.4) 10^3/uL 1.03 L Absolute Monocytes (0.1-0.8) 10^3/uL 1.33 H Absolute Eosinophils (0.0-0.7) 10^3/uL 0.00 Absolute Basophils (0.0-0.2) 10^3/uL 0.04 ESR D-Dimer (<500) ng/mlFEU VBG pH (7.31-7.41) 7.47 H VBG pCO2 (41-51) mmHg 33 L VBG pO2 mmHg 130 VBG HCO3 (23-28) mmol/L 24 VBG Total CO2 (24-29) mmol/L 21 L VBG O2 Saturation % > 99 VBG Base Excess (-2-3) mmol/L 0 VBG Lactate (<or=2.0) mmol/L 1.7 1.4 Sodium (136-145) mmol/L 130 L 133 L Potassium (3.5-5.1) mmol/L 3.9 3.8 Chloride (98-107) mmol/L 100 108 H Carbon Dioxide (20.0-31.0) mmol/L 23.3 22.6 Anion Gap (3-11) mmol/L 6.7 2.4 L BUN (9-23) mg/dL 19 22 Creatinine (0.55-1.02) mg/dL 0.54 L 0.62 Est GFR (CKD-EPI 2020) (mL/min/1.73m2) 106.53 90.83 Glucose (74-106) mg/dL 132 H 111 H Calcium (8.3-10.6) mg/dL 9.3 9.1 Magnesium (1.6-2.6) mg/dL 2.0 2.0 Total Bilirubin (0.2-1.2) mg/dL 1.00 1.30 H Conjugated Bilirubin (<=0.3) mg/dL AST (<34) U/L 48 H 52 H ALT (10-49) U/L 63 H 68 H Alkaline Phosphatase (46-116) U/L 361 H 360 H Troponin I (<35) ng/L C-Reactive Protein NT-Pro-B Natriuret Pep (<300) pg/mL Total Protein (5.7-8.2) g/dL 6.6 6.3 Albumin (3.4-5.0) g/dL 3.9 3.6 Urine Color (Yellow) Urine Clarity (Clear) Urine pH (5-8) Ur Specific [place] (1.005-1.025) Urine Protein (Neg-Trace) mg/dL Urine Ketones (Negative) mg/dL Urine Blood (Negative) Urine Nitrite (Negative) Urine Bilirubin (Negative) Urine Urobilinogen (Up to 0.2) mg/dL Ur Leukocyte Esterase (Negative) Urine RBC (0-2) HPF Urine WBC (0-5) HPF Ur Epithelial Cells (Negative) HPF Urine Crystals (Negative) HPF Urine Bacteria (Negative) HPF Urine Mucus (Negative) Urine Other (Negative) Ur Culture Indicated? Urine Glucose (Negative) mg/dL Random Vancomycin ug/mL COVID-19 Source SARS-CoV-2 (PCR) (Negative) Influenza Type A (PCR) (Negative) Influenza Type B (PCR) (Negative) Urine Legionella Ag (Negative) RSV (PCR) (Negative) MRSA (TEM-PCR) (Negative) Ur Strep pneumoniae Ag Range/Units 06/23/25 06/23/25 06/23/25 10:28 18:08 18:09 WBC (4.4-10.8) 10^3/uL RBC (3.93-5.22) 10^6/uL Hgb (11.2-15.7) g/dL Hct (36.0-46.0) % MCV (80-95) fL MCH (27.0-33.0) pg MCHC (32.0-36.0) % RDW (11.7-14.6) % Plt Count (130-400) 10^3/uL MPV (8.0-11.0) fL Immature Gran % % Neutrophils % % Lymphocytes % % Monocytes % % Eosinophils % % Basophils % % Nucleated RBC % (0.0-0.3) % Absolute Neutrophils (1.2-6.7) 10^3/uL Absolute Lymphocytes (1.2-3.4) 10^3/uL Absolute Monocytes (0.1-0.8) 10^3/uL Absolute Eosinophils (0.0-0.7) 10^3/uL Absolute Basophils (0.0-0.2) 10^3/uL ESR D-Dimer (<500) ng/mlFEU VBG pH (7.31-7.41) VBG pCO2 (41-51) mmHg VBG pO2 mmHg VBG HCO3 (23-28) mmol/L VBG Total CO2 (24-29) mmol/L VBG O2 Saturation % VBG Base Excess (-2-3) mmol/L VBG Lactate (<or=2.0) mmol/L Cancelled Sodium (136-145) mmol/L Potassium (3.5-5.1) mmol/L Chloride (98-107) mmol/L Carbon Dioxide (20.0-31.0) mmol/L Anion Gap (3-11) mmol/L BUN (9-23) mg/dL Creatinine (0.55-1.02) mg/dL Est GFR (CKD-EPI 2020) (mL/min/1.73m2) Glucose (74-106) mg/dL Calcium (8.3-10.6) mg/dL Magnesium (1.6-2.6) mg/dL Total Bilirubin (0.2-1.2) mg/dL Conjugated Bilirubin (<=0.3) mg/dL AST (<34) U/L ALT (10-49) U/L Alkaline Phosphatase (46-116) U/L Troponin I (<35) ng/L C-Reactive Protein NT-Pro-B Natriuret Pep (<300) pg/mL Total Protein (5.7-8.2) g/dL Albumin (3.4-5.0) g/dL Urine Color (Yellow) Urine Clarity (Clear) Urine pH (5-8) Ur Specific [place] (1.005-1.025) Urine Protein (Neg-Trace) mg/dL Urine Ketones (Negative) mg/dL Urine Blood (Negative) Urine Nitrite (Negative) Urine Bilirubin (Negative) Urine Urobilinogen (Up to 0.2) mg/dL Ur Leukocyte Esterase (Negative) Urine RBC (0-2) HPF Urine WBC (0-5) HPF Ur Epithelial Cells (Negative) HPF Urine Crystals (Negative) HPF Urine Bacteria (Negative) HPF Urine Mucus (Negative) Urine Other (Negative) Ur Culture Indicated? Urine Glucose (Negative) mg/dL Random Vancomycin ug/mL COVID-19 Source Nasopharynx SARS-CoV-2 (PCR) (Negative) Negative Influenza Type A (PCR) (Negative) Negative Influenza Type B (PCR) (Negative) Negative Urine Legionella Ag (Negative) RSV (PCR) (Negative) Negative MRSA (TEM-PCR) (Negative) Ur Strep pneumoniae Ag Cancelled Range/Units 06/23/25 06/23/25 06/24/25 21:10 21:11 06:00 WBC (4.4-10.8) 10^3/uL 16.00 H RBC (3.93-5.22) 10^6/uL 4.84 Hgb (11.2-15.7) g/dL 13.3 Hct (36.0-46.0) % 40.3 MCV (80-95) fL 83 MCH (27.0-33.0) pg 27.5 MCHC (32.0-36.0) % 33.0 RDW (11.7-14.6) % 16.2 H Plt Count (130-400) 10^3/uL 255 MPV (8.0-11.0) fL 10.7 Immature Gran % % 2.1 Neutrophils % % 83.7 Lymphocytes % % 6.8 Monocytes % % 7.1 Eosinophils % % 0.0 Basophils % % 0.3 Nucleated RBC % (0.0-0.3) % 0.0 Absolute Neutrophils (1.2-6.7) 10^3/uL 13.39 H Absolute Lymphocytes (1.2-3.4) 10^3/uL 1.09 L Absolute Monocytes (0.1-0.8) 10^3/uL 1.14 H Absolute Eosinophils (0.0-0.7) 10^3/uL 0.00 Absolute Basophils (0.0-0.2) 10^3/uL 0.05 ESR Cancelled D-Dimer (<500) ng/mlFEU VBG pH (7.31-7.41) VBG pCO2 (41-51) mmHg VBG pO2 mmHg VBG HCO3 (23-28) mmol/L VBG Total CO2 (24-29) mmol/L VBG O2 Saturation % VBG Base Excess (-2-3) mmol/L VBG Lactate (<or=2.0) mmol/L Sodium (136-145) mmol/L 142 Potassium (3.5-5.1) mmol/L 3.8 Chloride (98-107) mmol/L 107 Carbon Dioxide (20.0-31.0) mmol/L 25.3 Anion Gap (3-11) mmol/L 9.7 BUN (9-23) mg/dL 25 H Creatinine (0.55-1.02) mg/dL 0.75 Est GFR (CKD-EPI 2020) (mL/min/1.73m2) 72.91 Glucose (74-106) mg/dL 109 H Calcium (8.3-10.6) mg/dL 9.3 Magnesium (1.6-2.6) mg/dL 2.1 Total Bilirubin (0.2-1.2) mg/dL 1.30 H Conjugated Bilirubin (<=0.3) mg/dL 0.4 AST (<34) U/L 53 H ALT (10-49) U/L 74 H Alkaline Phosphatase (46-116) U/L 383 H Troponin I (<35) ng/L C-Reactive Protein Cancelled NT-Pro-B Natriuret Pep (<300) pg/mL Total Protein (5.7-8.2) g/dL 6.6 Albumin (3.4-5.0) g/dL 3.7 Urine Color (Yellow) Urine Clarity (Clear) Urine pH (5-8) Ur Specific [place] (1.005-1.025) Urine Protein (Neg-Trace) mg/dL Urine Ketones (Negative) mg/dL Urine Blood (Negative) Urine Nitrite (Negative) Urine Bilirubin (Negative) Urine Urobilinogen (Up to 0.2) mg/dL Ur Leukocyte Esterase (Negative) Urine RBC (0-2) HPF Urine WBC (0-5) HPF Ur Epithelial Cells (Negative) HPF Urine Crystals (Negative) HPF Urine Bacteria (Negative) HPF Urine Mucus (Negative) Urine Other (Negative) Ur Culture Indicated? Urine Glucose (Negative) mg/dL Random Vancomycin ug/mL COVID-19 Source SARS-CoV-2 (PCR) (Negative) Influenza Type A (PCR) (Negative) Influenza Type B (PCR) (Negative) Urine Legionella Ag (Negative) RSV (PCR) (Negative) MRSA (TEM-PCR) (Negative) Ur Strep pneumoniae Ag Range/Units 06/24/25 06/25/25 06/25/25 12:05 05:55 06:15 WBC (4.4-10.8) 10^3/uL 16.96 H RBC (3.93-5.22) 10^6/uL 4.96 Hgb (11.2-15.7) g/dL 13.4 Hct (36.0-46.0) % 42.3 MCV (80-95) fL 85 MCH (27.0-33.0) pg 27.0 MCHC (32.0-36.0) % 31.7 L RDW (11.7-14.6) % 16.3 H Plt Count (130-400) 10^3/uL 191 MPV (8.0-11.0) fL 10.4 Immature Gran % % 2.1 Neutrophils % % 83.9 Lymphocytes % % 6.1 Monocytes % % 7.5 Eosinophils % % 0.0 Basophils % % 0.4 Nucleated RBC % (0.0-0.3) % 0.0 Absolute Neutrophils (1.2-6.7) 10^3/uL 14.23 H Absolute Lymphocytes (1.2-3.4) 10^3/uL 1.03 L Absolute Monocytes (0.1-0.8) 10^3/uL 1.27 H Absolute Eosinophils (0.0-0.7) 10^3/uL 0.00 Absolute Basophils (0.0-0.2) 10^3/uL 0.07 ESR D-Dimer (<500) ng/mlFEU VBG pH (7.31-7.41) VBG pCO2 (41-51) mmHg VBG pO2 mmHg VBG HCO3 (23-28) mmol/L VBG Total CO2 (24-29) mmol/L VBG O2 Saturation % VBG Base Excess (-2-3) mmol/L VBG Lactate (<or=2.0) mmol/L Sodium (136-145) mmol/L 145 Potassium (3.5-5.1) mmol/L 3.2 L Chloride (98-107) mmol/L 105 Carbon Dioxide (20.0-31.0) mmol/L 30.2 Anion Gap (3-11) mmol/L 9.8 BUN (9-23) mg/dL 21 Creatinine (0.55-1.02) mg/dL 0.60 Est GFR (CKD-EPI 2020) (mL/min/1.73m2) 94.33 Glucose (74-106) mg/dL 129 H Calcium (8.3-10.6) mg/dL 8.9 Magnesium (1.6-2.6) mg/dL Total Bilirubin (0.2-1.2) mg/dL 1.30 H Conjugated Bilirubin (<=0.3) mg/dL AST (<34) U/L 91 H ALT (10-49) U/L 142 H Alkaline Phosphatase (46-116) U/L 390 H Troponin I (<35) ng/L C-Reactive Protein NT-Pro-B Natriuret Pep (<300) pg/mL Total Protein (5.7-8.2) g/dL 6.2 Albumin (3.4-5.0) g/dL 3.5 Urine Color (Yellow) Urine Clarity (Clear) Urine pH (5-8) Ur Specific [place] (1.005-1.025) Urine Protein (Neg-Trace) mg/dL Urine Ketones (Negative) mg/dL Urine Blood (Negative) Urine Nitrite (Negative) Urine Bilirubin (Negative) Urine Urobilinogen (Up to 0.2) mg/dL Ur Leukocyte Esterase (Negative) Urine RBC (0-2) HPF Urine WBC (0-5) HPF Ur Epithelial Cells (Negative) HPF Urine Crystals (Negative) HPF Urine Bacteria (Negative) HPF Urine Mucus (Negative) Urine Other (Negative) Ur Culture Indicated? Urine Glucose (Negative) mg/dL Random Vancomycin ug/mL 9.7 COVID-19 Source SARS-CoV-2 (PCR) (Negative) Influenza Type A (PCR) (Negative) Influenza Type B (PCR) (Negative) Urine Legionella Ag (Negative) RSV (PCR) (Negative) MRSA (TEM-PCR) (Negative) Ur Strep pneumoniae Ag Range/Units 06/26/25 05:50 WBC (4.4-10.8) 10^3/uL 17.00 H RBC (3.93-5.22) 10^6/uL 4.97 Hgb (11.2-15.7) g/dL 13.6 Hct (36.0-46.0) % 42.5 MCV (80-95) fL 86 MCH (27.0-33.0) pg 27.4 MCHC (32.0-36.0) % 32.0 RDW (11.7-14.6) % 16.2 H Plt Count (130-400) 10^3/uL 161 MPV (8.0-11.0) fL 10.3 Immature Gran % % 2.9 Neutrophils % % 84.8 Lymphocytes % % 5.7 Monocytes % % 6.1 Eosinophils % % 0.0 Basophils % % 0.5 Nucleated RBC % (0.0-0.3) % 0.0 Absolute Neutrophils (1.2-6.7) 10^3/uL 14.42 H Absolute Lymphocytes (1.2-3.4) 10^3/uL 0.97 L Absolute Monocytes (0.1-0.8) 10^3/uL 1.04 H Absolute Eosinophils (0.0-0.7) 10^3/uL 0.00 Absolute Basophils (0.0-0.2) 10^3/uL 0.09 ESR D-Dimer (<500) ng/mlFEU VBG pH (7.31-7.41) VBG pCO2 (41-51) mmHg VBG pO2 mmHg VBG HCO3 (23-28) mmol/L VBG Total CO2 (24-29) mmol/L VBG O2 Saturation % VBG Base Excess (-2-3) mmol/L VBG Lactate (<or=2.0) mmol/L Sodium (136-145) mmol/L 148 H Potassium (3.5-5.1) mmol/L 2.9 L Chloride (98-107) mmol/L 104 Carbon Dioxide (20.0-31.0) mmol/L 33.4 H Anion Gap (3-11) mmol/L 10.6 BUN (9-23) mg/dL 26 H Creatinine (0.55-1.02) mg/dL 0.65 Est GFR (CKD-EPI 2020) (mL/min/1.73m2) 86.01 Glucose (74-106) mg/dL 155 H Calcium (8.3-10.6) mg/dL 9.0 Magnesium (1.6-2.6) mg/dL 2.2 Total Bilirubin (0.2-1.2) mg/dL 1.10 Conjugated Bilirubin (<=0.3) mg/dL AST (<34) U/L 147 H ALT (10-49) U/L 290 H Alkaline Phosphatase (46-116) U/L 379 H Troponin I (<35) ng/L C-Reactive Protein NT-Pro-B Natriuret Pep (<300) pg/mL Total Protein (5.7-8.2) g/dL 6.1 Albumin (3.4-5.0) g/dL 3.5 Urine Color (Yellow) Urine Clarity (Clear) Urine pH (5-8) Ur Specific [place] (1.005-1.025) Urine Protein (Neg-Trace) mg/dL Urine Ketones (Negative) mg/dL Urine Blood (Negative) Urine Nitrite (Negative) Urine Bilirubin (Negative) Urine Urobilinogen (Up to 0.2) mg/dL Ur Leukocyte Esterase (Negative) Urine RBC (0-2) HPF Urine WBC (0-5) HPF Ur Epithelial Cells (Negative) HPF Urine Crystals (Negative) HPF Urine Bacteria (Negative) HPF Urine Mucus (Negative) Urine Other (Negative) Ur Culture Indicated? Urine Glucose (Negative) mg/dL Random Vancomycin ug/mL COVID-19 Source SARS-CoV-2 (PCR) (Negative) Influenza Type A (PCR) (Negative) Influenza Type B (PCR) (Negative) Urine Legionella Ag (Negative) RSV (PCR) (Negative) MRSA (TEM-PCR) (Negative) Ur Strep pneumoniae Ag
[2025-06-27 06:44] LABS: Abs Immature Grans 0.68 10^3/uL (0.0-0.06); HCT 41.9 % (36.0-46.0); HGB 13.1 g/dL (11.2-15.7); MCH 26.8 pg (27.0-33.0); MCHC 31.3 % (32.0-36.0); MCV 86 fL (80-95); MPV 10.3 fL (8.0-11.0); Platelet Count 138 10^3/uL (130-400); RBC 4.89 10^6/uL (3.93-5.22); RDW 15.9 % (11.7-14.6); RDW-SD 49.7 fL; WBC 16.44 10^3/uL (4.4-10.8)
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
[2025-06-27 07:08] LABS: ALT 538 U/L (10-49); AST 264 U/L (<34); Albumin 3.4 g/dL (3.2-5.0); Alkaline Phosphatase 350 U/L (46-116); Anion Gap 8.3 mmol/L (3-11); BUN 30 mg/dL (9-23); Bilirubin, Total 0.90 mg/dL (0.2-1.2); CO2 33.7 mmol/L (20.0-31.0); Calcium 9.3 mg/dL (8.3-10.6); Chloride 104 mmol/L (98-107); Glucose 141 mg/dL (74-106); Magnesium 2.1 mg/dL (1.6-2.6); Potassium 3.8 mmol/L (3.5-5.1); Sodium 146 mmol/L (136-145); Total Protein 6.1 g/dL (5.7-8.2)
[2025-06-27 07:41] LABS: Immature Grans % 0.0 %
[2025-06-27 07:42] LABS: Anisocytosis 1+; Hypochromasia 1+; Microcytosis 1+
--- NOTE | 2025-06-27 07:55 | CMPROGNOTE_ITS ---
Date of service: 06/27/25 Time of Service: 16:12 Care Management Progress Note Progress Note Text Progress Note Text: Lorraine was lying in bed on 6L O2 via NC and was accompanied by her son, Bautista, and his spouse, who have agreed to serve as her 24-hour caregivers at home. Palliative care saw Lorraine this morning, and the family has requested a follow-up call with an update; CM informed Palliative Care of this request. Per hospice home oxygen has been ordered through [employer] and they asked that CM confirm the estimated delivery time with Bautista. Per Bautista, the [employer] company provided an estimated delivery window of 10:00?17:00 (hospice notified o f this timeframe). He also noted that a shower chair may be helpful at some point, though not urgently. Per RN, Lorraine was coughing last night and is currently experiencing hip pain. She is scheduled for an MRI later today. Hospice has indicated that a next-day admission is planned for Lorraine. CM will continue to follow. Discharge Potential Discharge Needs: Consult Consult Services Needed: Palliative, PCP F/U Appt and Other (Hospice) Anticipated Barriers to Discharge: Other (High Flow O2 Machine) Patient/Family Education Needs: Review discharge instructions, discuss Ask Me Three Transportation: Private vehicle Plan: Anticipate Lorraine will be discharged home, on hospice with high flow O2 machine once available and hospice admission is coordinated. It is recommended she follow up with her community providers, hospice and discharge plan of care. She will transport home via EMS due to O2 requirement. CM will follow. Social Determinants of Health Screening Will the Patient Participate in the Screening?: Declined to provide Do you worry about having a steady place to live?: yes What is your living sit uation today?: I have housing today, but am worried about losing it In the past 12 months, have you had to go without electric, gas, oil or water in your home?: no Has lack of transportation kept you from medical appointments or from doing things needed for daily living?: no Has anyone in your life made you feel unsafe or unsupported?: no How hard is it for you to pay for the very basics like food, housing, medical care, and heating? Would you say it is:: Not hard at all Do you want help finding or keeping work or a job?: I do not need or want help If for any reason you need help with day-to-day activities such as bathing, preparing meals, shopping, managing finances, etc., do you get the help you need?: I get all the help I need How often do you feel lonely or isolated from those around you?: Never Do you speak a language other than [place] Island[place] at home?: No Does the patient want assistance with any of the above?: No Health Related Social Needs Health related social needs: housing instability, housed, with risk of homelessness (Z59.811) Health related social needs details: living in a house with her .
[2025-06-27] MEDS: Potassium Chloride 20 MEQ TABCR 40 MEQ PO ×2 (08:08→20:35)
[2025-06-27] MEDS: guaiFENesin 600 MG TABCR PO ×2 (08:08→20:36)
[2025-06-27] MEDS: Spironolactone 50 MG TAB PO (08:09)
[2025-06-27] MEDS: Lisinopril 20 MG TAB 40 MG PO (08:09)
[2025-06-27] MEDS: amLODIPine 5 MG TAB PO (08:10)
[2025-06-27] MEDS: Normal Saline Flush 10 ML SYR IVP ×2 (08:20→20:41)
--- NOTE | 2025-06-27 10:04 | RESPIRATORY ---
RT titrated patient from Airvo to High Flow Cannula, and then to regular low-flow cannula in anticipation for D/C home on hospice. Pt able to maintain SpO2 89% at rest on 6L nasal cannula. RT contacted [employer] for inquiry on high-flow concentrator availability. Shy at [facility] stated they have one high-flow concentrator that will go up to 10Lpm available. RT contacted child care sitter Carolina to update this information.
[2025-06-27 12:49] LABS: M. pneumoniae Ab, IgG Positive (Negative); M. pneumoniae Ab, IgM Negative (Negative)
--- NOTE | 2025-06-27 13:27 | PGE_ITS ---
Date of Service Date of service: 06/27/25 Time of Service: 13:27 Assessment and Plan Assessment and plan (1) Severe sepsis: Status: Resolved Assessment and plan: -patient met criteria for severe sepsis on admission 06/19 with WBC 15.7, HR 95, RR 27, CAP as source of infection and seen on chest CT, initial LA of 3.6 (repeat LA 2.7) -was started on CTX and azithro after failing outpatient doxy prior to admission -blood cultures NG Leukocytosis increased Jun 21, increased O2 demand, elevated BP. Discussed with Dr Hernández on Jun 22, modified antibiotics to azithromycin, vanc omycin, pip-tazo, CT concerning for pulmonary abscess Discussed with [facility] Pulmonology Dr Dukes on Jun 23, concern for developing ARDS. Transfer to higher level of care unlikely due to bed shortage at all local hospitals. Diuresed for likely pulmonary edema seen on CT, Changed steroids from prednisone to hydrocortisone 06/26 Patient confirms her DNR/DNI status, discussed and confirmed with family, pursuing hospice per her wishes, stopped antibiotics after 8 days. (2) Pneumonia: Status: Acute Assessment and plan: As above, a/ (3) Acute hypoxemic respiratory failure: Status: Acute Assessment and plan: As above, worsening hypoxemia Not on home O2 prior to admission. Has not resolved with aggressive treatment of pneumonia and diuresis. She does not want more aggressive care such as bronchoscopy Now off high flow in preparation for discharge with home O2 with transition to hospice. Transition steroids back to prednisone orally and plan taper. (4) Hypertension: Status: Chronic Assessment and plan: - not take home medications as prescribed -amlodipine and lisinopril have been restarted, added spironolactone, then furosemide, but with goals of care it does not make sense to continue to escalate therapy. Stop furosemide. (5) Hyponatremia: Status: Resolved Assessment and plan: -mild, asymptomatic, likely secondary to mild SIADH in the setting of CAP, since resolved, now hypernatremic with poor po intake. (6) Transaminitis: Status: Acute Assessment and plan: worsening, which likely reflects severity of lung infection. With goals of care, I will not persue additional diagnostic work up. She is not highly liver- toxic medication. Discharge Planning Discharge Planning: home 06/28 with home O2, transitioning to hospice Subjective Subjective Patient reports: voiding w/o difficulty; denies diarrhea, vomiting or fever Interval history since last seen: Events: Seen by Palliative, wants palliative approach, goal to d/c home c/o strain/pain in right hip/groin area after coughing. feels better with hip flexed. Breathing feels about the same, not uncomfortable with NC in place at 6 liters. No chest pain. Eating a little, not much. Last BM 07/25. Exam Narrative Exam Narrative: General: This is a pleasant woman, mild visible dyspnea CV: RRR Resp: Diminished breath sounds bilaterally with expiratory wheeze, increased work of breathing on 6 liters NC Abd: soft, NTND ext: warm, NT, no edema Neuro: awake, alert, no focal deficits Objective Last Vital Signs Temp 36.4 C L 06/27/25 11:22 Pulse 91 H 06/27/25 13:09 Resp 20 06/27/25 13:04 BP 184/100 H 06/27/25 11:22 Pulse Ox 90 L 06/27/25 13:04 Laboratory Results - last 24 hr 06/19/25 06/21/25 06/22/25 20:20 06:00 15:27 WBC RBC Hgb Hct MCV MCH MCHC RDW Plt Count MPV Immature Gran % Neutrophils % Band Neutrophils % Lymphocytes % Atypical Lymphs % Monocytes % Eosinophils % Basophils % Nucleated RBC % Absolute Neutrophils Absolute Lymphocytes Absolute Monocytes Absolute Eosinophils Absolute Basophils Hypochromasia Anisocytosis Microcytosis Sodium Potassium Chloride Carbon Dioxide Anion Gap BUN Creatinine Est GFR (CKD-EPI 2020) Glucose Calcium Magnesium Total Bilirubin AST ALT Alkaline Phosphatase Total Protein Albumin M. pneumoniae Interp SEE BELOW Mycoplasma pneumon IgG Positive A Mycoplasma pneumon IgM Negative Anti-Streptolysin O Ttr 35 Anti-DNase B (Strep) <90 Ur Strep pneumoniae Ag Negative 06/27/25 06:10 WBC 16.44 H RBC 4.89 Hgb 13.1 Hct 41.9 MCV 86 MCH 26.8 L MCHC 31.3 L RDW 15.9 H Plt Count 138 MPV 10.3 Immature Gran % 0.0 Neutrophils % 92.0 Band Neutrophils % 1 Lymphocytes % 1.0 Atypical Lymphs % 4 Monocytes % 2.0 Eosinophils % 0.0 Basophils % 0.0 Nucleated RBC % 1.0 H Absolute Neutrophils 15.29 H Absolute Lymphocytes 0.82 L Absolute Monocytes 0.33 Absolute Eosinophils 0.00 Absolute Basophils 0.00 Hypochromasia 1+ Anisocytosis 1+ Microcytosis 1+ Sodium 146 H Potassium 3.8 Chloride 104 Carbon Dioxide 33.7 H Anion Gap 8.3 BUN 30 H Creatinine 0.58 Est GFR (CKD-EPI 2020) 98.09 Glucose 141 H Calcium 9.3 Magnesium 2.1 Total Bilirubin 0.90 AST 264 H ALT 538 H Alkaline Phosphatase 350 H Total Protein 6.1 Albumin 3.4 M. pneumoniae Interp Mycoplasma pneumon IgG Mycoplasma pneumon IgM Anti-Streptolysin O Ttr Anti-DNase B (Strep) Ur Strep pneumoniae Ag PAWSS Have you Been Recently Intoxicated or Drunk Within the Last 30 days?: No Have you Ever Experienced Previous Episodes of Alcohol Withdrawal?: No Have you ever Experienced Withdrawal Seizures?: No Have you ever Experienced Delirium Tremens(DT)s?: No Have you ever undergone Alcohol Rehabilitation Treatment (i.e, inpt ot outpatient treatment programs)?: No Have you ever Experienced Blackouts?: No Have you ever Combined Alcohol with other Downers within the last 90 days?: No Have you ever Combined Alcohol with any other Substance of Abuse during the last 90 days?: No Positive Blood Alcohol level on Presentation? [PCS.BAL]: No Evidence of Increased Autonomic Activity (i.e. HR>120, tremor, sweating, agitation, nausea)?: No Result: 0 VTE Prohylaxis Risk Level: Moderate/High Risk Contraindications: None Prophylaxis: Pharmacologic Time Spent with Patient Time Spent with Patient: 35-49 minutes Time was spent: preparing to see the patient(eg.review tests), obtaining and/or reviewing separately otained hiistory, ordering medications,tests, procedures, referring, communicating with other health home care nurse, indepentently interpreting results, counseling the patient and care coordination
[2025-06-27] MEDS: predniSONE 20 MG TAB 40 MG PO (14:01)
[2025-06-27] MEDS: Enoxaparin 40 MG/0.4 ML SYR SC (20:35)
--- NOTE | 2025-06-27 21:30 | RT.EKG_ITS ---
APPROVED REPORT Exam: Resting ECG Reason for Exam: Rhythm change, Afib RVR Patient Location: I HR:145 bpm ECG Measurements Heart Rate 145 AXIS DC [id number] P [id number] QRSd 81 QRS 27 QT 274 T 58 QTc 426 Conclusion Atrial fibrillation with rapid V-rate...A-rate 380 Repolarization abnormality, prob rate related...ST dep, T neg, tachycardia
[2025-06-27] MEDS: Metoprolol 5 MG/5 ML VIAL IVP ×2 (21:47→23:30)
--- NOTE | 2025-06-27 21:47 | DI.VRAD_ITS ---
PROCEDURE INFORMATION: Exam: XR Right Hip Exam date and time: 06/27/2025 8:14 PM Age: 89 years old Clinical indication: Prior surgery; Surgery date: 6+ months; Surgery type: Replacement; Right hip pain, no fall history TECHNIQUE: Imaging protocol: Radiologic exam of the right hip. Views: 2 or 3 views hip with pelvis when performed. COMPARISON: CR XR HIP RT AP LAT ONLY 03/21/2023 11:12 AM FINDINGS: Bones/joints: Status post bilateral hip arthroplasties. No fracture or subluxation. Degenerative changes of sacroiliac joints and visualized spine. Prosthetic components on the right appear intact and well-seated. Soft tissues: Unremarkable. IMPRESSION: No acute findings. Dictated and Authenticated by: Erwin Murphy MD. Orderin Cesia Law MD
[2025-06-27] MEDS: Milk of Magnesia 30 ML CUP PO (21:54)
--- NOTE | 2025-06-27 22:33 | W.EVENT ---
Date of service: 06/27/25 Time of Service: 22:33 Event Note: This is an 89-year-old lady who has hypoxemia with pneumonia slowly improving but approaching [employer]. I was called because of new onset tachycardia which appeared to be atrial fibrillation. She was on lunchroom monitor though this had been discontinued. She was asymptomatic and sleep at the time of the onset of her rhythm change. EKG did show atrial fibrillation rapid ventricular response and no further testing was done with patient approaching [employer]. She is on O2 nasal cannula and could be discharged in the morning. She did not want telemetry to be continued after she initially was being treated for tachycardia with IV metoprolol being given 3 doses with a heart rate going down from around 150-120. She was asymptomatic as stated. Because of her status no further testing was done. Physical exam appears stable with patient on nasal cannula sleeping with her head slightly elevated. She was answering questions with a soft voice. She was in no acute distress. Lungs had fair aeration with some crackles and heart had an irregular irregular rhythm with tachycardia. Abdomen was soft and extremities without significant edema. She had no cyanosis. Assessment/plan: New onset atrial fibrillation with rapid ventricular response with patient not wanting interventions. Plans are for her to go home with [employer] or hospice in the morning. She is a DNR/DNI. Telemetry was discontinued at patient's request and no further interventions or testing will be done at this time. Time Spent with Patient Time spent in critical care(minutes): 30 Time Spent Included: Chart review, Documenting critically ill care and Time at immediate bedside
[2025-06-28] VITALS (10 sets, daily range): BP systolic 108–136; BP diastolic 79–98; PULSE 92–140; RESP 15–22; TEMP 36.5; O2SAT 87–96
[2025-06-28] MEDS: Albuterol/Ipratropium 3 ML UPD VIAL UPD ×3 (01:55→14:22)
[2025-06-28] MEDS: Metoprolol 5 MG/5 ML VIAL IVP (03:27)
[2025-06-28] MEDS: LORazepam 2 MG/ML VIAL 0.5 MG IVP ×3 (03:44→12:41)
[2025-06-28 07:36] LABS: ALT 934 U/L (10-49); AST 431 U/L (<34); Albumin 3.6 g/dL (3.2-5.0); Alkaline Phosphatase 352 U/L (46-116); Anion Gap 8.3 mmol/L (3-11); BUN 36 mg/dL (9-23); Bilirubin, Total 0.90 mg/dL (0.2-1.2); CO2 32.7 mmol/L (20.0-31.0); Calcium 9.4 mg/dL (8.3-10.6); Chloride 104 mmol/L (98-107); Glucose 120 mg/dL (74-106); Potassium 4.7 mmol/L (3.5-5.1); Sodium 145 mmol/L (136-145); Total Protein 6.0 g/dL (5.7-8.2)
--- NOTE | 2025-06-28 08:44 | NUR.NOTE ---
Pt is AOX4, on 6L O2 via humidified NC, sats in the 90s when awake and drops to the 80s when asleep. Telemetry showed Afib with tachycardia 140s - 150s. Provider made aware and metoprolol prescribed, this was given 3x this night worker to keep HR within safe limit as ordered. Pt declined oral ativan, switched to iv and was given. Pt is sob on exertion. x2 BMs this shift.
--- NOTE | 2025-06-28 09:22 | CMDISCH_ITS ---
Date of service: 06/28/25 Time of Service: 14:40 LACE Index Scoring Tool Questions: Length of Stay (in days): 7 - 13 Was the patient admitted via the E.D.?: Yes Comorbidities: Chronic Pulmonary Disease and Liver or Renal Disease E.D. Visits: 1 Answers: Total Score: 14 Risk of Readmission: High Risk Care Management Discharge Plan Reason for Hospitalization: Pneumonia Discharge Plan: Lorraine will be discharged home, on hospice with high flow O2 machine today as DME delivery has been confirmed. A next day hospice admission is coordinated and confirmed. It is recommended she follow up with her community providers, hospice and discharge plan of care. She will transport home via EMS due to O2 requirement as coordinated by CM. Patient/Family Education Needs: Review of discharge instructions, activity, limitations, and plan of care. Discuss ask me three. Services Needed at Discharge: DME Agency SDOH Health Related Social Needs: Health related social needs risk of homeless Health related social needs details She lives alone; h er predeceased her. Health related social needs details: She lives alone; her predeceased her.
[2025-06-28] MEDS: Spironolactone 50 MG TAB PO (09:38)
[2025-06-28] MEDS: Lisinopril 20 MG TAB 40 MG PO (09:38)
[2025-06-28] MEDS: Normal Saline Flush 10 ML SYR IVP (09:38)
[2025-06-28] MEDS: amLODIPine 5 MG TAB PO (09:38)
[2025-06-28] MEDS: predniSONE 20 MG TAB 40 MG PO (09:39)
[2025-06-28] MEDS: guaiFENesin 600 MG TABCR PO (09:39)
[2025-06-28] MEDS: Potassium Chloride 20 MEQ TABCR 40 MEQ PO (09:39)
[2025-06-28] MEDS: [UNRECOGNIZED DRUG - OTHER] PO (09:41)
[2025-06-28] MEDS: VITAMINS A C E ZINC COPPER PO (09:41)
[2025-06-28] MEDS: Metoprolol CR 25 MG TABCR PO (10:52)
--- NOTE | 2025-06-28 14:26 | W.PM.DS.N ---
Date of service: 06/28/25 Time of Service: 14:26 DS: Diagnosis Discharge Diagnosis (1) Severe sepsis: Status: Resolved (2) Pneumonia: Status: Acute (3) Acute hypoxemic respiratory failure: Status: Acute (4) Hypertension: Status: Chronic (5) Hyponatremia: Status: Resolved (6) Transaminitis: Status: Acute Discharge Plan Disposition Patient Disposition: Home W/Hospice Services Anticipated Discharge Date/Time: 06/28/25 12:47 Condition: Serious Discharge Details Reason For Visit: Pneumonia Admit Date/Time: 06/19/25 19:12 Admit Provider: Gerber Osorio Attending Provider: Gerber Osorio Primary Care Provider: Kasey Garcia Hospital Course Hospital Course: 89-year-old previously active female with CKD3 who presented with a week of increasing shortness of breath that worsened despite outpatient treatment with doxycycline. On admission she met severe sepsis criteria with elevated lactate, WBC 15.7, and RR 27. She was not initially hypoxic. Pneumonia was diagnosed on CXR and she was admitted and treated with ceftiaxone and azithromycin on 06/19. On 06/21 her WBC increased and she became hypoxic needing 3 liters. The case was reviewed with the batter out Dr. Hernández on 06/22, antibiotics expanded to pip/tazo and vancomycin along with azithromycin. CT chest was done and was concerning for pulmonary abscess. Hypoxia worsened and 06/23 the case was reviewed with Dr. Dukes from [facility]. She required HFNC to maintain saturations and the concern was ARDS. She had been on steroids, these were changed to hydrocortisone. Diuresis was also done with furosemide. Despite aggressive care, her oxygen requirement and overall weakness/malaise did not improve. On 06/26 she elected to take a palliative approach rather than pursue transfer or additional diagnostic intervention such as bronchoscopy and antibiotics were stopped on the 8th day of hospitalization. On 06/27 she was transitioned to nasal cannuala and she needed 6 liters at rest. She was sent home 06/28 once home oxygen could be arranged with plans to enroll in hospice care. She was sent home with a prednisone taper and bronchodilators for comfort, along with lorazepam until she can transition to hospice as this was helping her. Transaminitis with hepatocellular pattern was noted and this worsened despite stopping antibiotics, suggesting this is part of the inflammatory process affecting the lungs. she had some pain in her right hip/groin area that started with coughing. XR showed stable replacement. This was felt to be muscular/ligamentous strain. No hernia was palpable. Her blood pressure was high despite treatment throughout the hospitalization. Her potassium was low. Spironolactone was started. We discussed she may elect to stop her blood pressure medications with her comfort oriented goals. She did go into atrial fibrillation 06/27, which resolved after IV metoprolol. She was sent home on metoprolol succinate 25mg as this may help with symptoms if she goes back into atrial fibrillation. Anticoagulation was not persued due to her goals of care. Home Meds and New Rx's Prescriptions: New ipratropium-albuterol 0.5 mg-3 mg(2.5 mg base)/3 mL Solution For Nebulization 3 ml UPD Q6H PRN (Reason: Wheezing) Qty: 50 0RF guaifenesin [Mucus Relief ER] 600 mg Tablet Extended Release 12hr 600 mg PO BID Qty: 30 0RF prednisone 20 mg Tablet See Taper PO DAILY 6 Days Qty: 7 0RF Taper: Prednisone 20mg taper 40 mg Daily for 2 Days and 0 Hour 20 mg Daily for 2 Days and 0 Hour 10 mg Daily for 2 Days and 0 Hour metoprolol succinate 25 mg Tablet Extended Release 24 Hr 25 mg PO DAILY Qty: 30 2RF spironolactone 50 mg Tablet 50 mg PO DAILY Qty: 30 0RF carboxymethylcellulose sodium [Refresh Plus] 0.5 % Dropperette 2 drp OU QID PRN PRNQty: 1 0RF Deep Sea Nasal 0.65 % Aerosol,[place] 2 spray NS QID PRN PRNQty: 10 0RF lisinopril 20 mg Tablet 40 mg PO DAILY Qty: 30 0RF Continued ICaps AREDS [id number] capsule 1 cap PO BID morphine concentrate 100 mg/5 mL (20 mg/mL) solution 5 - 20 mg PO Q1-4H MDD 5 mL PRN (Reason: moderate to severe pain or shortness of breath) Qty: 30 0RF Rx Instructions: Hospice Patient amlodipine 5 mg tablet 5 mg PO DAILY Patient Comments: TAKE ONE TABLET BY MOUTH EVERY DAY lorazepam 1 mg tablet 1 mg PO Q4H PRN (Reason: anxiety, HOOVER or nausea) Qty: 25 5RF Rx Instructions: Hospice Patient acetaminophen [Tylenol Arthritis Pain] 650 mg tablet extended release 650 mg PO Q8H PRN PRNQty: 0 0RF Discontinued doxycycline hyclate 100 mg capsule 100 mg PO BID Patient Comments: TAKE ONE CAPSULE BY MOUTH TWICE A DAY FOR 7 DAYS amlodipine 2.5 mg tablet 1 tab PO DAILY Patient Comments: TAKE ONE TABLET BY MOUTH EVERY MORNING FOR HIGH BLOOD PRESSURE No Action lisinopril 30 mg tablet 60 mg PO DAILY albuterol sulfate 90 mcg/actuation HFA aerosol inhaler 1 inh INHALATION PRN Patient Comments: INHALE TWO PUFFS BY MOUTH EVERY 6 TO 8 HOURS NEEDED FOR WHEEZE, OR SHORTNESS OF BREATH Discharge Instructions Additional Instructions: follow up with hospice as planned Stand Alone Forms: Portal Information Referrals: Kasey Garcia [Primary Care Provider, Medicine] Referral Note: Your pcp will reach out to schedule a follow up, if you do not hear from them call. Activity:: Activity as Tolerated Equipment/Supplies:: Oxygen (L/min Below) Diet:: As Tolerated Discharge Orders Discharge Orders: Discharge Order (Routine); Ordered 06/28/25 Ordered By: Thanh Callaway Discharge Data Discharge Date/Time-TO BE ENTERED AT DEPARTURE: 06/28/25 17:15 DS: Summary Time Spent with Patient providing and/or coordinating discharge services: Greater than 30 minutes Status at Discharge Functional status at discharge: bed bound Overall status at discharge: patient is not back to baseline Mental Status: mental status grossly normal Speech and Movement: speech and movement normal Mood: congruent mood Affect: normal affect Quality:SDOH Health Related Social Needs: Health related social needs risk of homeless Health related social needs details She lives alone; her predeceased her. Health related social needs details: She lives alone; her predeceased her. Exam Narrative Exam Narrative: General: This is a pleasant woman, mild visible dyspnea CV: RRR Resp: Diminished breath sounds bilaterally with expiratory wheeze, increased work of breathing on 6 liters NC Abd: soft, NTND ext: warm, NT, no edema. no pain with int/ex rotation right hip Neuro: awake, alert, no focal deficits Psych Mental Status: mental status grossly normal Speech and Movement: speech and movement normal Mood: congruent mood Affect: normal affect DS: Data Vitals/I&O Vitals and I&O: Vital Signs Temperature 36.5 C 06/28/25 09:05 Temperature Source Temporal Artery Scan 06/28/25 09:05 Pulse 118 H 06/28/25 14:22 Pulse Rhythm Regular 06/19/25 21:23 Pulse 104 H 06/25/25 12:01 Respiratory Rate 15 06/28/25 14:22 Respiratory Effort Labored 06/23/25 09:10 Respiratory Depth Deep 06/19/25 21:23 Respiratory Pattern Tachypnea 06/23/25 09:10 Blood Pressure 136/98 H 06/28/25 12:30 Blood Pressure Mean 110 06/28/25 12:30 Pulse Oximetry 90 L 06/28/25 12:30 Oxygen Delivery Method High Flow Nasal Cannula 06/28/25 14:22 Oxygen Flow Rate 6 06/28/25 12:30 Fraction of Inspired Oxygen (FIO2) 49 06/27/25 08:14 Pain Level 0 06/27/25 11:22 Comment nurse notified 06/27/25 21:10 Intake & Output 06/27/25 06/28/25 06/28/25 23:59 11:59 23:59 Intake Total 340 / 350 Output Total 525 / 525 Balance 340 / -50 -525 / -525 Weight 53.07 kg Intake: Oral 340 / 340 Output: Urine 525 / 525 Other: Urine Color Yellow Light Nasreen Urine Appearance Clear Sediment Stool Size Small Small Stool Characteristics Soft Soft Brown Data Completed and Pending Pending Labs at Discharge: 06/19/25 06/19/25 06/19/25 16:15 16:23 16:52 WBC 15.74 H RBC 5.49 H Hgb 15.1 Hct 44.5 MCV 81 MCH 27.5 MCHC 33.9 RDW 14.9 H Plt Count 301 MPV 9.5 Immature Gran % 1.6 Neutrophils % 78.5 Band Neutrophils % Lymphocytes % 12.2 Atypical Lymphs % Monocytes % 7.3 Eosinophils % 0.1 Basophils % 0.3 Nucleated RBC % 0.0 Absolute Neutrophils 12.36 H Absolute Lymphocytes 1.92 Absolute Monocytes 1.15 H Absolute Eosinophils 0.02 Absolute Basophils 0.05 Hypochromasia Anisocytosis Microcytosis ESR D-Dimer 840 H VBG pH 7.45 H VBG pCO2 43 VBG pO2 29 VBG HCO3 30 H VBG Total CO2 26 VBG O2 Saturation 60 VBG Base Excess 6 H VBG Lactate 2.0 Sodium 127 L Potassium 3.0 L Chloride 90 L Carbon Dioxide 27.8 Anion Gap 8.8 BUN 20 Creatinine 0.53 L Est GFR (CKD-EPI 2020) 108.85 Glucose 111 H Calcium 9.2 Magnesium Total Bilirubin 1.40 H Conjugated Bilirubin AST 43 H ALT 66 H Alkaline Phosphatase 447 H Troponin I 7 C-Reactive Protein NT-Pro-B Natriuret Pep 1595 H Total Protein 7.0 Albumin 4.3 Urine Color Yellow Urine Clarity Clear Urine pH 6.0 Ur Specific [place] 1.025 Urine Protein 100 H Urine Ketones Negative Urine Blood Trace-intact H Urine Nitrite Negative Urine Bilirubin Negative Urine Urobilinogen 1.0 H Ur Leukocyte Esterase Negative Urine RBC 3-5 H Urine WBC 3-5 Ur Epithelial Cells Many Urine Crystals Negative Urine Bacteria Negative Urine Mucus Heavy Urine Other Rare Yeast Ur Culture Indicated? No Urine Glucose Negative Random Vancomycin COVID-19 Source Nasopharynx SARS-CoV-2 (PCR) Negative Influenza Type A (PCR) Negative Influenza Type B (PCR) Negative Urine Legionella Ag M. pneumoniae Interp Mycoplasma pneumon IgG Mycoplasma pneumon IgM RSV (PCR) Negative MRSA (TEM-PCR) Anti-Streptolysin O Ttr Anti-DNase B (Strep) Ur Strep pneumoniae Ag 06/19/25 06/19/25 06/19/25 17:30 20:20 21:40 WBC RBC Hgb Hct MCV MCH MCHC RDW Plt Count MPV Immature Gran % Neutrophils % Band Neutrophils % Lymphocytes % Atypical Lymphs % Monocytes % Eosinophils % Basophils % Nucleated RBC % Absolute Neutrophils Absolute Lymphocytes Absolute Monocytes Absolute Eosinophils Absolute Basophils Hypochromasia Anisocytosis Microcytosis ESR D-Dimer VBG pH VBG pCO2 VBG pO2 VBG HCO3 VBG Total CO2 VBG O2 Saturation VBG Base Excess VBG Lactate Sodium Potassium Chloride Carbon Dioxide Anion Gap BUN Creatinine Est GFR (CKD-EPI 2020) Glucose Calcium Magnesium Total Bilirubin Conjugated Bilirubin AST ALT Alkaline Phosphatase Troponin I 6 C-Reactive Protein NT-Pro-B Natriuret Pep Total Protein Albumin Urine Color Urine Clarity Urine pH Ur Specific [place] Urine Protein Urine Ketones Urine Blood Urine Nitrite Urine Bilirubin Urine Urobilinogen Ur Leukocyte Esterase Urine RBC Urine WBC Ur Epithelial Cells Urine Crystals Urine Bacteria Urine Mucus Urine Other Ur Culture Indicated? Urine Glucose Random Vancomycin COVID-19 Source SARS-CoV-2 (PCR) Influenza Type A (PCR) Influenza Type B (PCR) Urine Legionella Ag Negative M. pneumoniae Interp Mycoplasma pneumon IgG Mycoplasma pneumon IgM RSV (PCR) MRSA (TEM-PCR) Negative Anti-Streptolysin O Ttr 35 Anti-DNase B (Strep) <90 Ur Strep pneumoniae Ag 06/19/25 06/20/25 06/20/25 23:00 02:00 06:04 WBC 12.56 H RBC 4.97 Hgb 14.0 Hct 41.0 MCV 83 MCH 28.2 MCHC 34.1 RDW 15.2 H Plt Count 249 MPV 9.7 Immature Gran % 1.6 Neutrophils % 83.1 Band Neutrophils % Lymphocytes % 8.3 Atypical Lymphs % Monocytes % 6.8 Eosinophils % 0.0 Basophils % 0.2 Nucleated RBC % 0.0 Absolute Neutrophils 10.44 H Absolute Lymphocytes 1.04 L Absolute Monocytes 0.85 H Absolute Eosinophils 0.00 Absolute Basophils 0.03 Hypochromasia Anisocytosis Microcytosis ESR D-Dimer VBG pH VBG pCO2 VBG pO2 VBG HCO3 VBG Total CO2 VBG O2 Saturation VBG Base Excess VBG Lactate 3.6 H* 2.7 H* Sodium 131 L Potassium 4.3 D Chloride 99 Carbon Dioxide 24.2 Anion Gap 8.2 BUN 16 Creatinine 0.44 L Est GFR (CKD-EPI 2020) 134.93 Glucose 123 H Calcium 8.9 Magnesium Total Bilirubin 0.90 Conjugated Bilirubin AST 37 H ALT 60 H Alkaline Phosphatase 376 H Troponin I C-Reactive Protein NT-Pro-B Natriuret Pep Total Protein 6.1 Albumin 3.7 Urine Color Urine Clarity Urine pH Ur Specific [place] Urine Protein Urine Ketones Urine Blood Urine Nitrite Urine Bilirubin Urine Urobilinogen Ur Leukocyte Esterase Urine RBC Urine WBC Ur Epithelial Cells Urine Crystals Urine Bacteria Urine Mucus Urine Other Ur Culture Indicated? Urine Glucose Random Vancomycin COVID-19 Source SARS-CoV-2 (PCR) Influenza Type A (PCR) Influenza Type B (PCR) Urine Legionella Ag M. pneumoniae Interp Mycoplasma pneumon IgG Mycoplasma pneumon IgM RSV (PCR) MRSA (TEM-PCR) Anti-Streptolysin O Ttr Anti-DNase B (Strep) Ur Strep pneumoniae Ag 06/21/25 06/22/25 06/22/25 06:00 02:00 06:02 WBC 19.34 H 16.71 H RBC 5.07 4.66 Hgb 14.0 12.8 Hct 42.0 38.6 MCV 83 83 MCH 27.6 27.5 MCHC 33.3 33.2 RDW 15.7 H 16.0 H Plt Count 274 253 MPV 10.2 10.8 Immature Gran % 1.3 Neutrophils % 88.5 Band Neutrophils % Lymphocytes % 5.5 Atypical Lymphs % Monocytes % 4.4 Eosinophils % 0.1 Basophils % 0.2 Nucleated RBC % 0.0 Absolute Neutrophils 14.79 H Absolute Lymphocytes 0.92 L Absolute Monocytes 0.74 Absolute Eosinophils 0.02 Absolute Basophils 0.03 Hypochromasia Anisocytosis Microcytosis ESR D-Dimer VBG pH VBG pCO2 VBG pO2 VBG HCO3 VBG Total CO2 VBG O2 Saturation VBG Base Excess VBG Lactate Sodium 129 L Potassium 4.1 Chloride 100 Carbon Dioxide 23.1 Anion Gap 5.9 BUN 19 Creatinine 0.52 L Est GFR (CKD-EPI 2020) 111.27 Glucose 118 H Calcium 9.1 Magnesium Total Bilirubin Conjugated Bilirubin AST ALT Alkaline Phosphatase Troponin I C-Reactive Protein NT-Pro-B Natriuret Pep Total Protein Albumin Urine Color Urine Clarity Urine pH Ur Specific [place] Urine Protein Urine Ketones Urine Blood Urine Nitrite Urine Bilirubin Urine Urobilinogen Ur Leukocyte Esterase Urine RBC Urine WBC Ur Epithelial Cells Urine Crystals Urine Bacteria Urine Mucus Urine Other Ur Culture Indicated? Urine Glucose Random Vancomycin 12.3 COVID-19 Source SARS-CoV-2 (PCR) Influenza Type A (PCR) Influenza Type B (PCR) Urine Legionella Ag M. pneumoniae Interp SEE BELOW Mycoplasma pneumon IgG Positive A Mycoplasma pneumon IgM Negative RSV (PCR) MRSA (TEM-PCR) Anti-Streptolysin O Ttr Anti-DNase B (Strep) Ur Strep pneumoniae Ag 06/22/25 06/22/25 06/23/25 08:40 15:27 06:30 WBC 17.53 H RBC 4.90 Hgb 14.3 Hct 41.4 MCV 85 MCH 29.2 MCHC 34.5 RDW 16.2 H Plt Count 262 MPV 10.2 Immature Gran % 1.7 Neutrophils % 84.6 Band Neutrophils % Lymphocytes % 5.9 Atypical Lymphs % Monocytes % 7.6 Eosinophils % 0.0 Basophils % 0.2 Nucleated RBC % 0.0 Absolute Neutrophils 14.83 H Absolute Lymphocytes 1.03 L Absolute Monocytes 1.33 H Absolute Eosinophils 0.00 Absolute Basophils 0.04 Hypochromasia Anisocytosis Microcytosis ESR D-Dimer VBG pH VBG pCO2 VBG pO2 VBG HCO3 VBG Total CO2 VBG O2 Saturation VBG Base Excess VBG Lactate 1.7 Sodium 130 L 133 L Potassium 3.9 3.8 Chloride 100 108 H Carbon Dioxide 23.3 22.6 Anion Gap 6.7 2.4 L BUN 19 22 Creatinine 0.54 L 0.62 Est GFR (CKD-EPI 2020) 106.53 90.83 Glucose 132 H 111 H Calcium 9.3 9.1 Magnesium 2.0 2.0 Total Bilirubin 1.00 1.30 H Conjugated Bilirubin AST 48 H 52 H ALT 63 H 68 H Alkaline Phosphatase 361 H 360 H Troponin I C-Reactive Protein NT-Pro-B Natriuret Pep Total Protein 6.6 6.3 Albumin 3.9 3.6 Urine Color Urine Clarity Urine pH Ur Specific [place] Urine Protein Urine Ketones Urine Blood Urine Nitrite Urine Bilirubin Urine Urobilinogen Ur Leukocyte Esterase Urine RBC Urine WBC Ur Epithelial Cells Urine Crystals Urine Bacteria Urine Mucus Urine Other Ur Culture Indicated? Urine Glucose Random Vancomycin COVID-19 Source SARS-CoV-2 (PCR) Influenza Type A (PCR) Influenza Type B (PCR) Urine Legionella Ag M. pneumoniae Interp Mycoplasma pneumon IgG Mycoplasma pneumon IgM RSV (PCR) MRSA (TEM-PCR) Anti-Streptolysin O Ttr Anti-DNase B (Strep) Ur Strep pneumoniae Ag Negative 06/23/25 06/23/25 06/23/25 10:28 10:28 18:08 WBC RBC Hgb Hct MCV MCH MCHC RDW Plt Count MPV Immature Gran % Neutrophils % Band Neutrophils % Lymphocytes % Atypical Lymphs % Monocytes % Eosinophils % Basophils % Nucleated RBC % Absolute Neutrophils Absolute Lymphocytes Absolute Monocytes Absolute Eosinophils Absolute Basophils Hypochromasia Anisocytosis Microcytosis ESR D-Dimer VBG pH 7.47 H VBG pCO2 33 L VBG pO2 130 VBG HCO3 24 VBG Total CO2 21 L VBG O2 Saturation > 99 VBG Base Excess 0 VBG Lactate 1.4 Cancelled Sodium Potassium Chloride Carbon Dioxide Anion Gap BUN Creatinine Est GFR (CKD-EPI 2020) Glucose Calcium Magnesium Total Bilirubin Conjugated Bilirubin AST ALT Alkaline Phosphatase Troponin I C-Reactive Protein NT-Pro-B Natriuret Pep Total Protein Albumin Urine Color Urine Clarity Urine pH Ur Specific [place] Urine Protein Urine Ketones Urine Blood Urine Nitrite Urine Bilirubin Urine Urobilinogen Ur Leukocyte Esterase Urine RBC Urine WBC Ur Epithelial Cells Urine Crystals Urine Bacteria Urine Mucus Urine Other Ur Culture Indicated? Urine Glucose Random Vancomycin COVID-19 Source Nasopharynx SARS-CoV-2 (PCR) Negative Influenza Type A (PCR) Negative Influenza Type B (PCR) Negative Urine Legionella Ag M. pneumoniae Interp Mycoplasma pneumon IgG Mycoplasma pneumon IgM RSV (PCR) Negative MRSA (TEM-PCR) Anti-Streptolysin O Ttr Anti-DNase B (Strep) Ur Strep pneumoniae Ag 06/23/25 06/23/25 06/23/25 18:09 21:10 21:11 WBC RBC Hgb Hct MCV MCH MCHC RDW Plt Count MPV Immature Gran % Neutrophils % Band Neutrophils % Lymphocytes % Atypical Lymphs % Monocytes % Eosinophils % Basophils % Nucleated RBC % Absolute Neutrophils Absolute Lymphocytes Absolute Monocytes Absolute Eosinophils Absolute Basophils Hypochromasia Anisocytosis Microcytosis ESR Cancelled D-Dimer VBG pH VBG pCO2 VBG pO2 VBG HCO3 VBG Total CO2 VBG O2 Saturation VBG Base Excess VBG Lactate Sodium Potassium Chloride Carbon Dioxide Anion Gap BUN Creatinine Est GFR (CKD-EPI 2020) Glucose Calcium Magnesium Total Bilirubin Conjugated Bilirubin AST ALT Alkaline Phosphatase Troponin I C-Reactive Protein Cancelled NT-Pro-B Natriuret Pep Total Protein Albumin Urine Color Urine Clarity Urine pH Ur Specific [place] Urine Protein Urine Ketones Urine Blood Urine Nitrite Urine Bilirubin Urine Urobilinogen Ur Leukocyte Esterase Urine RBC Urine WBC Ur Epithelial Cells Urine Crystals Urine Bacteria Urine Mucus Urine Other Ur Culture Indicated? Urine Glucose Random Vancomycin COVID-19 Source SARS-CoV-2 (PCR) Influenza Type A (PCR) Influenza Type B (PCR) Urine Legionella Ag M. pneumoniae Interp Mycoplasma pneumon IgG Mycoplasma pneumon IgM RSV (PCR) MRSA (TEM-PCR) Anti-Streptolysin O Ttr Anti-DNase B (Strep) Ur Strep pneumoniae Ag Cancelled 06/24/25 06/24/25 06/25/25 06:00 12:05 05:55 WBC 16.00 H 16.96 H RBC 4.84 4.96 Hgb 13.3 13.4 Hct 40.3 42.3 MCV 83 85 MCH 27.5 27.0 MCHC 33.0 31.7 L RDW 16.2 H 16.3 H Plt Count 255 191 MPV 10.7 10.4 Immature Gran % 2.1 2.1 Neutrophils % 83.7 83.9 Band Neutrophils % Lymphocytes % 6.8 6.1 Atypical Lymphs % Monocytes % 7.1 7.5 Eosinophils % 0.0 0.0 Basophils % 0.3 0.4 Nucleated RBC % 0.0 0.0 Absolute Neutrophils 13.39 H 14.23 H Absolute Lymphocytes 1.09 L 1.03 L Absolute Monocytes 1.14 H 1.27 H Absolute Eosinophils 0.00 0.00 Absolute Basophils 0.05 0.07 Hypochromasia Anisocytosis Microcytosis ESR D-Dimer VBG pH VBG pCO2 VBG pO2 VBG HCO3 VBG Total CO2 VBG O2 Saturation VBG Base Excess VBG Lactate Sodium 142 Potassium 3.8 Chloride 107 Carbon Dioxide 25.3 Anion Gap 9.7 BUN 25 H Creatinine 0.75 Est GFR (CKD-EPI 2020) 72.91 Glucose 109 H Calcium 9.3 Magnesium 2.1 Total Bilirubin 1.30 H Conjugated Bilirubin 0.4 AST 53 H ALT 74 H Alkaline Phosphatase 383 H Troponin I C-Reactive Protein NT-Pro-B Natriuret Pep Total Protein 6.6 Albumin 3.7 Urine Color Urine Clarity Urine pH Ur Specific [place] Urine Protein Urine Ketones Urine Blood Urine Nitrite Urine Bilirubin Urine Urobilinogen Ur Leukocyte Esterase Urine RBC Urine WBC Ur Epithelial Cells Urine Crystals Urine Bacteria Urine Mucus Urine Other Ur Culture Indicated? Urine Glucose Random Vancomycin 9.7 COVID-19 Source SARS-CoV-2 (PCR) Influenza Type A (PCR) Influenza Type B (PCR) Urine Legionella Ag M. pneumoniae Interp Mycoplasma pneumon IgG Mycoplasma pneumon IgM RSV (PCR) MRSA (TEM-PCR) Anti-Streptolysin O Ttr Anti-DNase B (Strep) Ur Strep pneumoniae Ag 06/25/25 06/26/25 06/27/25 06:15 05:50 06:10 WBC 17.00 H 16.44 H RBC 4.97 4.89 Hgb 13.6 13.1 Hct 42.5 41.9 MCV 86 86 MCH 27.4 26.8 L MCHC 32.0 31.3 L RDW 16.2 H 15.9 H Plt Count 161 138 MPV 10.3 10.3 Immature Gran % 2.9 0.0 Neutrophils % 84.8 92.0 Band Neutrophils % 1 Lymphocytes % 5.7 1.0 Atypical Lymphs % 4 Monocytes % 6.1 2.0 Eosinophils % 0.0 0.0 Basophils % 0.5 0.0 Nucleated RBC % 0.0 1.0 H Absolute Neutrophils 14.42 H 15.29 H Absolute Lymphocytes 0.97 L 0.82 L Absolute Monocytes 1.04 H 0.33 Absolute Eosinophils 0.00 0.00 Absolute Basophils 0.09 0.00 Hypochromasia 1+ Anisocytosis 1+ Microcytosis 1+ ESR D-Dimer VBG pH VBG pCO2 VBG pO2 VBG HCO3 VBG Total CO2 VBG O2 Saturation VBG Base Excess VBG Lactate Sodium 145 148 H 146 H Potassium 3.2 L 2.9 L 3.8 Chloride 105 104 104 Carbon Dioxide 30.2 33.4 H 33.7 H Anion Gap 9.8 10.6 8.3 BUN 21 26 H 30 H Creatinine 0.60 0.65 0.58 Est GFR (CKD-EPI 2020) 94.33 86.01 98.09 Glucose 129 H 155 H 141 H Calcium 8.9 9.0 9.3 Magnesium 2.2 2.1 Total Bilirubin 1.30 H 1.10 0.90 Conjugated Bilirubin AST 91 H 147 H 264 H ALT 142 H 290 H 538 H Alkaline Phosphatase 390 H 379 H 350 H Troponin I C-Reactive Protein NT-Pro-B Natriuret Pep Total Protein 6.2 6.1 6.1 Albumin 3.5 3.5 3.4 Urine Color Urine Clarity Urine pH Ur Specific [place] Urine Protein Urine Ketones Urine Blood Urine Nitrite Urine Bilirubin Urine Urobilinogen Ur Leukocyte Esterase Urine RBC Urine WBC Ur Epithelial Cells Urine Crystals Urine Bacteria Urine Mucus Urine Other Ur Culture Indicated? Urine Glucose Random Vancomycin COVID-19 Source SARS-CoV-2 (PCR) Influenza Type A (PCR) Influenza Type B (PCR) Urine Legionella Ag M. pneumoniae Interp Mycoplasma pneumon IgG Mycoplasma pneumon IgM RSV (PCR) MRSA (TEM-PCR) Anti-Streptolysin O Ttr Anti-DNase B (Strep) Ur Strep pneumoniae Ag 06/28/25 06:55 WBC RBC Hgb Hct MCV MCH MCHC RDW Plt Count MPV Immature Gran % Neutrophils % Band Neutrophils % Lymphocytes % Atypical Lymphs % Monocytes % Eosinophils % Basophils % Nucleated RBC % Absolute Neutrophils Absolute Lymphocytes Absolute Monocytes Absolute Eosinophils Absolute Basophils Hypochromasia Anisocytosis Microcytosis ESR D-Dimer VBG pH VBG pCO2 VBG pO2 VBG HCO3 VBG Total CO2 VBG O2 Saturation VBG Base Excess VBG Lactate Sodium 145 Potassium 4.7 Chloride 104 Carbon Dioxide 32.7 H Anion Gap 8.3 BUN 36 H Creatinine 0.66 Est GFR (CKD-EPI 2020) 84.50 Glucose 120 H Calcium 9.4 Magnesium Total Bilirubin 0.90 Conjugated Bilirubin AST 431 H ALT 934 H Alkaline Phosphatase 352 H Troponin I C-Reactive Protein NT-Pro-B Natriuret Pep Total Protein 6.0 Albumin 3.6 Urine Color Urine Clarity Urine pH Ur Specific [place] Urine Protein Urine Ketones Urine Blood Urine Nitrite Urine Bilirubin Urine Urobilinogen Ur Leukocyte Esterase Urine RBC Urine WBC Ur Epithelial Cells Urine Crystals Urine Bacteria Urine Mucus Urine Other Ur Culture Indicated? Urine Glucose Random Vancomycin COVID-19 Source SARS-CoV-2 (PCR) Influenza Type A (PCR) Influenza Type B (PCR) Urine Legionella Ag M. pneumoniae Interp Mycoplasma pneumon IgG Mycoplasma pneumon IgM RSV (PCR) MRSA (TEM-PCR) Anti-Streptolysin O Ttr Anti-DNase B (Strep) Ur Strep pneumoniae Ag PFSH All Active Problems (Updated 06/28/25 @ 11:16 by Thanh Callaway) Sepsis due to pneumonia (Acute) COPD exacerbation (Acute) Acute hypoxemic respiratory failure (Acute) Respiratory failure (Acute) Hematuria (Acute) Elevated brain natriuretic peptide (BNP) level (Acute) Transaminitis (Acute) Hypokalemia (Acute) Pneumonia (Acute) Sepsis (Acute) Degenerative joint disease of right hip (Acute) Degenerative joint disease of left hip (Acute) Cataracts, bilateral (Acute) Macular degeneration of right eye (Acute) Hyperlipidemia (Acute) CKD (chronic kidney disease) stage 3, GFR 30-59 ml/min (Acute) Low back pain (Acute) Hypertension (Chronic) Medical History Fecal occult blood test positive Right hip pain Seasonal allergies Eczema Former smoker Surgical History (Updated 03/21/23 @ 10:29 by JIMMIE Manzano) History of bilateral hip arthroplasty (03/19/22) Hx of cataract extraction Social History Smoking/Tobacco Use Status: Former Tobacco Use Quit Date: 07/28/08 Smoking risk assessment performed?: Yes Alcohol Intake: current Alcohol Intake frequency: a few times a week Alcohol type: wine Drug use: Never Substance use type: does not use Housing: house Do you feel safe at home: Yes Do you feel safe in your relationship?: Yes Time Spent with Patient Time Spent with Patient: 45-69 minutes Time was spent: preparing to see the patient(eg.review tests), obtaining and/or reviewing separately otained hiistory, ordering medications,tests, procedures, referring, communicating with other health field care manager, indepentently interpreting results, counseling the patient and care coordination
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
== END 2025-06-28 17:15 | disposition hospice, home (50) | DRG 871 ==
LOC: ER 19:59 → MS 06-20 04:37 → ICU 06-23 09:26 → MS 06-25 13:13
PROVIDERS: Family Medicine; Admitting Provider Hospitalist; Emergency Provider Physician Assistant; PCP Nurse Practitioner Family; Responsible Provider Family Medicine; Visit Provider Hospitalist
DX: A41.9 Sepsis, unspecified organism (principal); J18.9 Pneumonia, unspecified organism; J80 Acute respiratory distress syndrome; J44.0 Chronic obstructive pulmonary disease with (acute) lower respiratory infection; J44.1 Chronic obstructive pulmonary disease with (acute) exacerbation; E22.2 Syndrome of inappropriate secretion of antidiuretic hormone; Z59.811 Housing instability, housed, with risk of homelessness; I10 Essential (primary) hypertension; E87.6 Hypokalemia; R74.01 Elevation of levels of liver transaminase levels; Z87.891 Personal history of nicotine dependence; I48.91 Unspecified atrial fibrillation; R31.9 Hematuria, unspecified; R65.20 Severe sepsis without septic shock; N18.30 Chronic kidney disease, stage 3 unspecified; F41.9 Anxiety disorder, unspecified; I12.9 Hypertensive chronic kidney disease with stage 1 through stage 4 chronic kidney disease, or unspecified chronic kidney disease; M54.50 Low back pain, unspecified; E78.5 Hyperlipidemia, unspecified; R79.1 Abnormal coagulation profile; Z66 Do not resuscitate; Z96.643 Presence of artificial hip joint, bilateral; Z79.899 Other long term (current) drug therapy; D72.829 Elevated white blood cell count, unspecified
CPT/HCPCS: 76604; 00123; 36415; 71250; 80048; 80053; 82805; 85027; 85652; 87040; 87449; 87637; 87641; 93005; 94640; 94761; 96361; 96365; 96367; 96372; 96375; 97161; 97530; 99222; 99232; 99291; J1650; 71045; 73502; 80202; 81003; 81015; 82248; 83605; 83735; 83880; 84484; 85025; 85379; 86060; 86140; 86215; 86738; 87070; 87205; 87899; 93010; 93306; 94667; 94668; 94760; 99231; 99233; 99239; G0378; J0360; J0456; J0696; J1720; J1938; J2060; J2543; J2919; J3373; J7512; J7608; J7613; J7620

== ENCOUNTER → 2025-06-22 09:56 | Outpatient (BNVA) | payer MEDICARE, SELFPAY | PROVIDERS: PCP Nurse Practitioner Family; Referring Provider Nurse Practitioner Family; Visit Provider Internal Medicine Pulmonary Disease ==